=== PATIENT | female | born 1945 | race Caucasian/White ===

== ENCOUNTER 2023-09-22 10:06 | Outpatient (CLI) | payer MEDICARE, SELFPAY ==
[2023-09-22] VITALS (9 sets, daily range): BP systolic 119–130; BP diastolic 56–66; PULSE 56–69; RESP 18; O2SAT 99–100
[2023-09-22] MEDS: ACETAMINOPHEN 500MG TAB 500 MG (10:18)
[2023-09-22] MEDS: 0.9 % SODIUM CHLORIDE 50 ML 100 ML IV (10:18)
[2023-09-22] MEDS: INFLIXIMAB IV (10:46)
[2023-09-22] MEDS: SODIUM CHLORIDE 0.9% IV (10:46)
--- NOTE | 2023-09-22 13:16 | XR_ITS ---
FINAL REPORT CLINICAL HISTORY: cough, no other complaints COMPARISON: 08/24/2023 FINDINGS: TWO-VIEW CHEST The heart size is normal. The mediastinum is normal. The lungs are hyperinflated consistent with COPD. There are postoperative changes in the lower cervical spine. There is no pneumothorax. IMPRESSION: No acute cardiopulmonary process. Reviewed, Interpreted and Dictated by Remington Nunn III, MD Transcribed by Betsy Robertson Authenticated and [facility]
== END 2023-09-22 13:15 | disposition home or self-care (01) ==
LOC: INF 10:07
PROVIDERS: PCP Family Medicine; Visit Provider Internal Medicine
DX: R05.9 Cough, unspecified (principal); I95.9 Hypotension, unspecified; M05.79 Rheumatoid arthritis with rheumatoid factor of multiple sites without organ or systems involvement
CPT/HCPCS: 71046; 96413; 96415; J1745

== ENCOUNTER 2023-10-13 11:49 | Outpatient (POV) | payer MEDICARE, SELFPAY | END 2023-10-13 23:59 | disposition home or self-care (01) | LOC: SC 11:50 | PROVIDERS: PCP Family Medicine; Visit Provider Dermatology | DX: Z00.00 Encounter for general adult medical examination without abnormal findings (principal) ==

== ENCOUNTER 2023-10-27 10:01 | Outpatient (CLI) | payer MEDICARE, OTHER, SELFPAY ==
[2023-10-27] VITALS (10 sets, daily range): BP systolic 104–137; BP diastolic 59–76; PULSE 57–62; RESP 18; O2SAT 96
[2023-10-27] MEDS: ACETAMINOPHEN 500MG TAB 500 MG PO (10:15)
[2023-10-27] MEDS: INFLIXIMAB IV (10:40)
[2023-10-27] MEDS: SODIUM CHLORIDE 0.9% IV (10:40)
[2023-10-27] MEDS: SODIUM CHLORIDE 0.9% 50ML BAG 50 ML IV (10:41)
== END 2023-10-27 13:10 | disposition home or self-care (01) ==
LOC: INF 10:04
PROVIDERS: PCP Family Medicine; Visit Provider Internal Medicine
DX: M05.79 Rheumatoid arthritis with rheumatoid factor of multiple sites without organ or systems involvement (principal)
CPT/HCPCS: 96413; 96415; J1745

== ENCOUNTER 2023-11-04 09:42 | Outpatient (CLI) | payer MEDICARE, OTHER, SELFPAY ==
[2023-11-04 09:56] LABS: Basophils # 0.1 K/mm3 (0-0.2); Basophils % 1.1 % (0.1-2.0); Eosinophils # 0.5 K/mm3 (0.0-0.4); Eosinophils % 6.2 % (0.1-12.0); Hematocrit 41.4 % (37.0-47.0); Hemoglobin 13.3 g/dL (12.2-16.2); Lymphocytes # 2.6 K/mm3 (0.7-4.5); Lymphocytes % 35.5 % (10-50); Mean Corpuscular HGB Conc 32.1 g/dL (31.8-35.4); Mean Corpuscular Hemoglobin 32.3 pg (27.0-31.2); Mean Corpuscular Volume 100.6 fl (81-99); Mean Platelet Volume 8.1 fl (7.4-10.4); Monocytes # 0.4 K/mm3 (0.1-1.0); Monocytes % 5.7 % (1.7-9.3); Neutrophils # 3.7 K/mm3 (1.8-7.8); Neutrophils % 51.5 % (37.0-80.0); Platelet Count 294 K/mm3 (142-424); Red Blood Count 4.11 M/mm3 (4.20-5.40); Red Cell Distribution Width 15.3 % (11.5-17.5); White Blood Count 7.2 K/mm3 (4.8-10.8)
[2023-11-04 10:45] LABS: Alanine Aminotransferase 23 U/L (12-78); Albumin Level 3.9 g/dl (3.5-5.0); Alkaline Phosphatase 58 U/L (38-126); Anion Gap 8.6 mEq/L (5-15); Aspartate Amino Transferase 40 U/L (14-36); Bilirubin,Direct 0.2 mg/dl (0.0-0.4); Bilirubin,Indirect 0.3 mg/dL (0.0-0.9); Bilirubin,Total 0.5 mg/dl (0.2-1.3); Bilirubin,Unconjugated 0.3 mg/dL (0.0-1.1); Blood Urea Nitrogen 15 mg/dl (7-17); Calcium 9.7 mg/dl (8.4-10.2); Carbon Dioxide 28 mmol/L (22.0-30.0); Chloride 108 mmol/L (98-107); Cholesterol 194 mg/dl (140-200); Estimated Glomerular Filt Rate 70 ml/min (>60); GFR (African American) 84 ML/MIN (>60); Glucose 86 mg/dl (74-100); Potassium 4.6 mmoL/L (3.5-5.1); Sodium 140 mmol/L (136-145); Total Protein,Serum 6.9 g/dl (6.3-8.2); Triglycerides 113 mg/dl (30-150); VLDL Cholesterol 23 mg/dL (0-40)
[2023-11-04 10:56] LABS: Direct LDL Cholesterol 67.41 mg/dL (100-129)
[2023-11-04 10:59] LABS: Chol/HDL Ratio 1.7 (1-3.5); HDL Cholesterol 113 mg/dl (40-60)
== END 2023-11-04 23:59 | disposition home or self-care (01) ==
LOC: LAB 09:43
PROVIDERS: PCP Family Medicine; Visit Provider Nurse Practitioner
DX: I95.9 Hypotension, unspecified (principal); I73.9 Peripheral vascular disease, unspecified; I65.29 Occlusion and stenosis of unspecified carotid artery; I25.10 Atherosclerotic heart disease of native coronary artery without angina pectoris; R42 Dizziness and giddiness; E78.5 Hyperlipidemia, unspecified; Z87.891 Personal history of nicotine dependence
CPT/HCPCS: 36415; 80048; 80061; 80076; 85025

== ENCOUNTER 2023-11-09 13:46 | Outpatient (CLI) | payer MEDICARE, OTHER, SELFPAY ==
--- NOTE | 2023-11-09 13:47 | CA_ITS ---
FINAL REPORT TECHNIQUE: Color Doppler, duplex Doppler and kraft scale sonography of the bilateral neck vasculature was performed. Velocities were measured in the carotid arteries. Stenosis evaluation based on velocity criteria. CLINICAL HISTORY: diziness COMPARISON: None FINDINGS: The peak systolic velocity of the right common carotid artery is 101 cm/sec and internal carotid artery 9 8 cm/sec. The diastolic velocity in the internal carotid artery is 57 cm/sec. The ICA/CCA ratio is 0.9. Visually, a small amount of plaque is seen. These findings are consistent with less than 50% stenosis. The external carotid artery is patent. The right vertebral artery is patent with antegrade flow. The peak systolic velocity of the left common carotid artery is 70 cm/sec and internal carotid artery 64 cm/sec. The diastolic velocity in the internal carotid artery is 13 cm/sec. The ICA/CCA ratio is 1.03. Visually, a small amount of plaque is seen. These findings are consistent with less than 50% stenosis. The external carotid artery is patent. The left vertebral artery is patent with antegrade flow. IMPRESSION: No evidence of significant carotid stenosis. Bilateral patent vertebral arteries. If indicated, CTA or MRA could further evaluate. Reviewed, Interpreted and Dictated by Remington Nunn III, MD Transcribed by Nata Mcfarlane Authenticated and [facility]
== END 2023-11-09 23:59 | disposition home or self-care (01) ==
LOC: RT 13:47
PROVIDERS: PCP Family Medicine; Visit Provider Nurse Practitioner
DX: R42 Dizziness and giddiness (principal)
CPT/HCPCS: 93880

== ENCOUNTER 2023-12-01 10:06 | Outpatient (CLI) | payer MEDICARE, OTHER, SELFPAY ==
[2023-12-01] VITALS (7 sets, daily range): BP systolic 109–121; BP diastolic 52–62; PULSE 56–75; RESP 18; TEMP 36.9; O2SAT 95
[2023-12-01] MEDS: ACETAMINOPHEN 500MG TAB 500 MG PO (10:25)
[2023-12-01] MEDS: SODIUM CHLORIDE 0.9% IV (10:36)
[2023-12-01] MEDS: INFLIXIMAB IV (10:36)
[2023-12-01] MEDS: SODIUM CHLORIDE 0.9% 50ML BAG 50 ML IV (10:40)
== END 2023-12-01 13:15 | disposition home or self-care (01) ==
LOC: INF 10:07
PROVIDERS: PCP Family Medicine; Visit Provider Internal Medicine
DX: M05.79 Rheumatoid arthritis with rheumatoid factor of multiple sites without organ or systems involvement (principal)
CPT/HCPCS: 96413; 96415; J1745

== ENCOUNTER 2024-01-04 10:07 | Outpatient (CLI) | payer MEDICARE, OTHER, SELFPAY ==
[2024-01-04] VITALS (8 sets, daily range): BP systolic 97–111; BP diastolic 41–62; PULSE 56–64; RESP 14–18; TEMP 36.4–36.7; O2SAT 96–97; BMI 22.7
[2024-01-04 10:58] LABS: Basophils # 0.1 K/mm3 (0-0.2); Basophils % 1.1 % (0.1-2.0); Eosinophils % 0.3 % (0.1-12.0); Hematocrit 40.7 % (37.0-47.0); Hemoglobin 13.1 g/dL (12.2-16.2); Lymphocytes # 3.4 K/mm3 (0.7-4.5); Lymphocytes % 48.5 % (10-50); Mean Corpuscular HGB Conc 32.2 g/dL (31.8-35.4); Mean Corpuscular Hemoglobin 31.5 pg (27.0-31.2); Mean Corpuscular Volume 97.8 fl (81-99); Mean Platelet Volume 8.6 fl (7.4-10.4); Monocytes # 0.3 K/mm3 (0.1-1.0); Monocytes % 4.3 % (1.7-9.3); Neutrophils # 3.2 K/mm3 (1.8-7.8); Neutrophils % 45.7 % (37.0-80.0); Platelet Count 151 K/mm3 (142-424); Red Blood Count 4.16 M/mm3 (4.20-5.40); Red Cell Distribution Width 15.7 % (11.5-17.5); White Blood Count 7.1 K/mm3 (4.8-10.8)
[2024-01-04 11:12] LABS: Blood Urea Nitrogen 22 mg/dl (7-17); Creatinine Clearance Estimated 49 mL/min (50-200); Estimated Glomerular Filt Rate 54 ml/min (>60); GFR (African American) 65 ML/MIN (>60)
[2024-01-04 11:14] LABS: Alanine Aminotransferase 95 U/L (12-78); Albumin Level 3.5 g/dl (3.5-5.0); Alkaline Phosphatase 242 U/L (38-126); Aspartate Amino Transferase 142 U/L (14-36); Bilirubin,Direct 0.1 mg/dl (0.0-0.4); Bilirubin,Indirect 0.5 mg/dL (0.0-0.9); Bilirubin,Total 0.6 mg/dl (0.2-1.3); Bilirubin,Unconjugated 0.6 mg/dL (0.0-1.1); Total Protein,Serum 7.1 g/dl (6.3-8.2)
[2024-01-04 11:18] LABS: C-Reactive Protein 10.4 mg/L (0-4)
[2024-01-04 11:47] LABS: Erythrocyte Sedimentation Rate 44 mm/hr (0-30)
== END 2024-01-04 14:33 | disposition home or self-care (01) ==
LOC: INF 10:08
PROVIDERS: PCP Family Medicine; Visit Provider Internal Medicine
DX: Z51.12 Encounter for antineoplastic immunotherapy (principal); M05.79 Rheumatoid arthritis with rheumatoid factor of multiple sites without organ or systems involvement; Z79.620 Long term (current) use of immunosuppressive biologic; D84.821 Immunodeficiency due to drugs; Z79.899 Other long term (current) drug therapy
CPT/HCPCS: 80076; 82565; 84520; 85025; 85651; 86140; 96413; 96415; J1745

== ENCOUNTER 2024-01-12 12:16 | Outpatient (CLI) | payer MEDICARE, OTHER, SELFPAY ==
[2024-01-12 12:43] LABS: Basophils # 0.1 K/mm3 (0-0.2); Basophils % 1.1 % (0.1-2.0); Eosinophils % 0.6 % (0.1-12.0); Hematocrit 38.6 % (37.0-47.0); Hemoglobin 13.1 g/dL (12.2-16.2); Lymphocytes % 31.5 % (10-50); Mean Corpuscular Hemoglobin 32.5 pg (27.0-31.2); Mean Corpuscular Volume 95.6 fl (81-99); Mean Platelet Volume 8.2 fl (7.4-10.4); Monocytes # 0.4 K/mm3 (0.1-1.0); Monocytes % 6.7 % (1.7-9.3); Neutrophils # 3.8 K/mm3 (1.8-7.8); Neutrophils % 60.1 % (37.0-80.0); Platelet Count 214 K/mm3 (142-424); Red Blood Count 4.04 M/mm3 (4.20-5.40); Red Cell Distribution Width 15.9 % (11.5-17.5); White Blood Count 6.3 K/mm3 (4.8-10.8)
[2024-01-12 13:14] LABS: Chloride 101 mmol/L (98-107)
[2024-01-12 13:15] LABS: Potassium 4.5 mmoL/L (3.5-5.1); Sodium 127 mmol/L (136-145)
[2024-01-12 13:17] LABS: Alanine Aminotransferase 106 U/L (12-78); Alkaline Phosphatase 489 U/L (38-126); Anion Gap 7.5 mEq/L (5-15); Aspartate Amino Transferase 139 U/L (14-36); Bilirubin,Indirect 0.7 mg/dL (0.0-0.9); Bilirubin,Total 0.7 mg/dl (0.2-1.3); Bilirubin,Unconjugated 0.6 mg/dL (0.0-1.1); Blood Urea Nitrogen 22 mg/dl (7-17); Carbon Dioxide 23 mmol/L (22.0-30.0); Cholesterol 92 mg/dl (140-200); Estimated Glomerular Filt Rate 61 ml/min (>60); GFR (African American) 73 ML/MIN (>60); Total Protein,Serum 6.9 g/dl (6.3-8.2); Triglycerides 74 mg/dl (30-150); VLDL Cholesterol 15 mg/dL (0-40)
[2024-01-12 13:18] LABS: Calcium 8.8 mg/dl (8.4-10.2); Chol/HDL Ratio 2.4 (1-3.5); Glucose 105 mg/dl (74-100); HDL Cholesterol 38 mg/dl (40-60); Magnesium 1.7 mg/dl (1.6-2.3)
[2024-01-12 13:30] LABS: Direct LDL Cholesterol < 30.00 mg/dL (100-129)
[2024-01-12 13:40] LABS: Free T4 (Free Thyroxine) 1.81 ng/dl (0.78-2.19)
[2024-01-12 13:48] LABS: Thyroid Stimulating Hormone 2.29 uIU/mL (0.465-4.68)
== END 2024-01-12 23:59 | disposition home or self-care (01) ==
LOC: LAB 14:12
PROVIDERS: PCP Family Medicine; Visit Provider Nurse Practitioner
DX: R42 Dizziness and giddiness (principal); I25.10 Atherosclerotic heart disease of native coronary artery without angina pectoris; R05.9 Cough, unspecified; I95.9 Hypotension, unspecified; R60.0 Localized edema; Z87.891 Personal history of nicotine dependence
CPT/HCPCS: 36415; 80048; 80061; 80076; 83735; 84439; 84443; 85025; 93270

== ENCOUNTER 2024-01-14 07:36 | Outpatient (CLI) | payer MEDICARE, OTHER, SELFPAY ==
[2024-01-14 09:02] LABS: Anion Gap 9.3 mEq/L (5-15); Blood Urea Nitrogen 26 mg/dl (7-17); Calcium 8.7 mg/dl (8.4-10.2); Carbon Dioxide 21 mmol/L (22.0-30.0); Chloride 101 mmol/L (98-107); Estimated Glomerular Filt Rate 61 ml/min (>60); GFR (African American) 73 ML/MIN (>60); Glucose 99 mg/dl (74-100); Potassium 4.3 mmoL/L (3.5-5.1); Sodium 127 mmol/L (136-145)
[2024-01-14 14:09] LABS: Creatinine,Urine Random 232 mg/dL (Not Estab.)
[2024-01-14 14:12] LABS: Microalbumin/Creatinine Ratio 3.7
== END 2024-01-14 23:59 | disposition home or self-care (01) ==
PROVIDERS: PCP Family Medicine; Visit Provider Nurse Practitioner
DX: I95.9 Hypotension, unspecified; I25.10 Atherosclerotic heart disease of native coronary artery without angina pectoris; I65.29 Occlusion and stenosis of unspecified carotid artery; I73.9 Peripheral vascular disease, unspecified; R42 Dizziness and giddiness; R60.0 Localized edema; R05.9 Cough, unspecified
CPT/HCPCS: 36415; 80048; 82043; 82533; 82570; 84540

== ENCOUNTER 2024-05-04 11:00 | Outpatient (RCR) | payer MEDICARE, OTHER, SELFPAY ==
--- NOTE | 2024-03-15 15:43 | [facility].PTOPWND ---
Rehab Outpt Wound Evaluation Rehab OP Wound Evaluation Start: 03/15/24 13:56 Freq: Status: Active Protocol: Document 03/15/24 13:56 RAGHAV (Rec: 03/15/24 15:42 PHORJARON [id number]) E-signed By Rakan Gee, PT Subjective/History History History This is the initial PT eval for Mimi Hobbs, 78 yo wf who presents with B LE edema x ~ 3 mos S/P prolonged hospital and inpatient rehab stays due to fungal PNA. She reports no c/o pain or numbness/tingling in either leg. She reports the edema in worse with prolonged dependent positioning and reduced with elevation of lower extremities. She has PMH of x 3, C-spine surgery x 2, COPD, RA, hypotension, histoplasmosis, and melanoma. Subjective Subjective Currently pain is 0/10, TTP is 1/4 B lower legs. 3+ pitting edema noted to B lower legs from upper calf distally. Mild hemosiderin staining noted B. Pt has a small posterior R calf wound L= 0.4 cm, W= 0.3 cm, D= 0.1 cm. New diagnosis of cancer in past 12 No months? Lymphedema Eval Classification of Lymphedema Secondary Lymphedema Yes Stemmer's sign Stemmer's Sign yes Stage of Lymphedema Lymphedema stages Stage I (Pitting edema, reduces w/ elevation, no fibrosis) Skin Changes Dry Skin Yes Skin Folds Yes Wounds Yes Discoloration of Skin Yes Other Changes Yes Pain Scale Pain Scale (0-10) 0 Radiation Therapy Has received radiation therapy no Chemo Therapy Has received chemo therapy no Affected Extremities Areas Affected by Lymphedema/Edema Right Lower Extremity,Left Lower Extremity Lower Extremity Measurements Right MTP Measurement (cm) 23.5 Heel Measurement (cm) 34.3 10 cm Proximal to Lateral Malleoli 29.0 Measurement (cm) 20 cm Proximal to Lateral Malleoli 33.1 Measurement (cm) 30 cm Proximal to Lateral Malleoli 34.6 Measurement (cm) 40 cm Proximal to Lateral Malleoli 36.0 Measurement (cm) 50 cm Proximal to Lateral Malleoli 0 Measurement (cm) 60 cm Proximal to Lateral Malleoli 0 Measurement (cm) Lower Extremity Measurement Total (cm) 190.5 Left MTP Measurement (cm) 23.2 Heel Measurement (cm) 33.5 10 cm Proximal to Lateral Malleoli 29.7 Measurement (cm) 20 cm Proximal to Lateral Malleoli 36.6 Measurement (cm) 30 cm Proximal to Lateral Malleoli 36.0 Measurement (cm) 40 cm Proximal to Lateral Malleoli 35.2 Measurement (cm) 50 cm Proximal to Lateral Malleoli 0 Measurement (cm) 60 cm Proximal to Lateral Malleoli 0 Measurement (cm) Lower Extremity Measurement Total (cm) 194.2 Manual Lymphatic Drainage Treatment Area MLD Treatment Area Right Lower Extremity,Left Lower Extremity Wound Problems/Impairments Impairments Problems/Impairmments Palpation Tenderness,Impaired Walking,Impaired Household Care,Increased Edema, Lymphedema Present,Wound Care Needs,Impaired Self Care/Self Management Prognosis Rehab Potential Good Comment Skilled therapy is indicated to reduce overall edema burden to B LE to aid pt return to PLOF. Clinical Impression Consistent with Diagnosis Yes Short Term Goals Number of Weeks 2 Decrease Edema Yes: 2+ pitting edema B lower legs Patient to Understand Lymphedema Yes Treatment and Exercises Decrease Girth Measurments by (cm) Yes: B B LE total by 5 cm ea Dining Room Captain Goals Number of Weeks 6-8 Decreased Palpation Tenderness Yes: 0/4 B lower legs Improve Ability For Household Care Yes Decrease Edema Yes: 1+ pitting edema to B lower legs Patient to be Ind w/ HEP Yes Patient to be Ind w/ Donning/[place] Yes Compression Garments Patient to Adhere Lymphedema Precautions Yes Decrease Girth Measurments by (cm) Yes: B LE total by 20 cm ea Outpatient Therapy Plan of Care Treatment Plan May Include Therapeutic Exercise Including Home Yes Exercise Program Manual Therapy Techniques Yes Neuromuscular Re-education Yes Therapeutic Activities to Return to Yes Previous Functional/Work Level Orthotics/Bracing/Splinting Yes Vasopneumatic Compression Pump Yes Manual Lymphatic Drainage Yes Eval/Re-Eval Yes Frequency Times per week 2 Duration Number of Weeks 6-8 Addendums This patient is a candidate for social No or vocational rehab? Patient/Guardian verbally acknowledges Yes understanding of treatment program and consents to further treatment? Patient/Guardian verbally acknowledges Yes understanding of diagnosis, prognosis and goals for treatment? Eval Complexity PT Charges 20629 - High Complexity PHYSICIAN CERTIFICATION: I certify the specified therapy services for Mimi Hobbs are required, authorized, and reviewed every 30 days.
--- NOTE | 2024-04-18 11:55 | HMH.RHREAS ---
Rehab Reassessment Rehab OP Re-assessment Start: 03/15/24 13:56 Freq: Status: Active Protocol: Document 04/18/24 11:44 [email or web address] (Rec: 04/18/24 11:54 PHORJARON [id number]) E-signed By Rakan Gee, PT Rehab Re-assessment Subjective Subjective Pt reports she feels much better overall with less swelling in B LE. She does reports she was on vacation and did develop a superficial blister to the lateral aspect of her R foot. She reports no soreness at this time, but does have a blister remaining on her R foot. Objective Objective Notes Circumferential Measurements: R LE total is 181.1 cm which is -9.4 cm since IE. L LE total is 181.5 cm which is -12.7 cm since IE. Edema: 2+ pitting edema remains to B lower legs and feet this date. Pain: 0/10 B LE TTP: 0/4 B lower legs. Assessment Progress Assessment Progressing as Expected Assessment Notes Pt has shown significant reduction of B LE edema overall, but continues to have pitting edema to B lower legs . Skilled therapy remains indicated to reduce overall edema burden and to return pt to PLOF. Patient goals met ST LT/7 Plan Plan Continue per initial POC. Frequency of Therapy 1-2 x/wk Duration of therapy 3-4 wks Time and Billing Re-Eval Time 11 Re-Eval Billing Units 0 PHYSICIAN CERTIFICATION: I certify the specified therapy services for Mimi Hobbs are required, authorized, and reviewed every 30 days.
== END 2024-05-04 23:59 | disposition home or self-care (01) ==
LOC: PT 11:00
PROVIDERS: Visit Provider Family Medicine
DX: I89.0 Lymphedema, not elsewhere classified (principal)
CPT/HCPCS: 97140; 97163

== ENCOUNTER 2024-05-05 14:01 | Outpatient (CLI) | payer MEDICARE, OTHER, SELFPAY ==
[2024-05-05 14:51] LABS: Basophils # 0.1 K/mm3 (0-0.2); Basophils % 0.9 % (0.1-2.0); Eosinophils # 0.4 K/mm3 (0.0-0.4); Eosinophils % 4.8 % (0.1-12.0); Hematocrit 38.9 % (37.0-47.0); Hemoglobin 12.5 g/dL (12.2-16.2); Lymphocytes # 2.1 K/mm3 (0.7-4.5); Lymphocytes % 23.5 % (10-50); Mean Corpuscular HGB Conc 32.2 g/dL (31.8-35.4); Mean Corpuscular Hemoglobin 31.2 pg (27.0-31.2); Mean Corpuscular Volume 96.8 fl (81-99); Mean Platelet Volume 8.1 fl (7.4-10.4); Monocytes # 0.5 K/mm3 (0.1-1.0); Monocytes % 5.8 % (1.7-9.3); Neutrophils # 5.7 K/mm3 (1.8-7.8); Neutrophils % 64.9 % (37.0-80.0); Platelet Count 254 K/mm3 (142-424); Red Blood Count 4.02 M/mm3 (4.20-5.40); Red Cell Distribution Width 14.1 % (11.5-17.5); White Blood Count 8.8 K/mm3 (4.8-10.8)
[2024-05-05 15:34] LABS: Anion Gap 12.5 mEq/L (5-15); Blood Urea Nitrogen 17 mg/dl (7-17); Calcium 9.4 mg/dl (8.4-10.2); Carbon Dioxide 27 mmol/L (22.0-30.0); Chloride 105 mmol/L (98-107); Estimated Glomerular Filt Rate 61 ml/min (>60); GFR (African American) 73 ML/MIN (>60); Glucose 105 mg/dl (74-100); Potassium 4.5 mmoL/L (3.5-5.1); Sodium 140 mmol/L (136-145)
== END 2024-05-05 23:59 | disposition home or self-care (01) ==
LOC: LAB 14:03
PROVIDERS: PCP Family Medicine; Visit Provider Internal Medicine
DX: R60.0 Localized edema (principal); I73.9 Peripheral vascular disease, unspecified; I65.29 Occlusion and stenosis of unspecified carotid artery; I25.10 Atherosclerotic heart disease of native coronary artery without angina pectoris; R42 Dizziness and giddiness; R05.9 Cough, unspecified; I95.9 Hypotension, unspecified
CPT/HCPCS: 36415; 80048; 85025

== ENCOUNTER 2024-05-31 10:00 | Outpatient (RCR) | payer MEDICARE, OTHER, SELFPAY | END 2024-07-05 23:59 | disposition home or self-care (01) | LOC: OT 10:00 | PROVIDERS: PCP Family Medicine; Visit Provider Family Medicine | DX: R53.1 Weakness (principal) | CPT/HCPCS: 97014; 97110; 97140; 97165; 97168; 97530; G0283 ==

== ENCOUNTER 2024-06-14 06:42 | Day surgery (SDC) | payer MEDICARE, OTHER, SELFPAY ==
[2024-06-10 12:50] VITALS: BMI 20.8
[2024-06-14] MEDS: TETRACAINE 0.5% OPTH SOL 15ML OP ×3 (07:05→07:06)
[2024-06-14] MEDS: PHENYLEPHRINE 2.5% OPHTH SOLN 2ML OP ×3 (07:05→07:06)
[2024-06-14] MEDS: CYCLOPENTOLATE 2% OPHTH SOLN 2ML BOTTLE OP ×3 (07:05→07:07)
[2024-06-14 07:11] VITALS: BP 165/63; PULSE 66; RESP 18; TEMP 36.4; O2SAT 96
[2024-06-14 08:13] VITALS: BP 125/74; PULSE 64; RESP 16; O2SAT 96
[2024-06-14] MEDS: MIDAZOLAM 2MG/2ML VIAL 2 MG (08:13)
[2024-06-14] MEDS: TIMOLOL 0.5% OPTH SOLN 5ML OP (08:16)
[2024-06-14] MEDS: TOBRAMYCIN/DEX OPTH SUSP 2.5ML OP (08:16)
[2024-06-14] MEDS: SODIUM CHLORIDE 0.9% 10ML FLUSH SYRINGE 10 ML IV (08:17)
[2024-06-14] MEDS: LIDOCAINE 1% PF 2ML AMPULE 2 ML IJ (08:17)
[2024-06-14 08:18] VITALS: BP 154/70; PULSE 59; RESP 16; O2SAT 96
[2024-06-14 08:23] VITALS: BP 149/63; PULSE 62; RESP 16; O2SAT 96
[2024-06-14 08:28] VITALS: BP 151/69; PULSE 64; RESP 16; O2SAT 96
[2024-06-14 08:34] VITALS: BP 139/67; PULSE 65; RESP 17; TEMP 36.1; O2SAT 99
== END 2024-06-14 08:45 | disposition home or self-care (01) ==
PROVIDERS: PCP Family Medicine; Visit Provider Ophthalmology
PROC: (CPT 66984; principal; 2024-06-14 08:00)
DX: H26.9 Unspecified cataract (principal)
CPT/HCPCS: 66984; J2250; V2632

== ENCOUNTER 2024-07-01 15:17 | Outpatient (CLI) | payer MEDICARE, OTHER, SELFPAY ==
--- NOTE | 2024-07-01 15:25 | MM_ITS ---
PROCEDURE INFORMATION: Exam: MG Bilateral Screening 3D Mammography Exam date and time: 07/01/2024 3:08 PM Age: 78 years old Clinical indication: Screening examination. Maternal aunts and a daughter had breast cancer. TECHNIQUE: Imaging protocol: Bilateral Screening tomosynthesis and 2D mammography including computer-aided detection (CAD) when performed. COMPARISON: No relevant prior studies available.If prior mammograms are provided, I am happy to add an addendum. FINDINGS: MAMMOGRAPHY: Breast composition: There are scattered areas of fibroglandular density. Mass: None. Architectural distortion: None. Calcifications: No suspicious calcifications. Asymmetric density: None. Skin thickening: None. Axillary adenopathy: None. IMPRESSION: No mammographic evidence of malignancy. Annual screening is recommended unless otherwise clinically indicated. ASSESSMENT: BI-RADS Category 1: Negative.
== END 2024-07-01 23:59 | disposition home or self-care (01) ==
LOC: RAD 15:18
PROVIDERS: PCP Family Medicine; Visit Provider Family Medicine
DX: Z12.31 Encounter for screening mammogram for malignant neoplasm of breast (principal)
CPT/HCPCS: 77063; 77067

== ENCOUNTER 2024-07-04 11:00 | Outpatient (RCR) | payer MEDICARE, OTHER, SELFPAY ==
--- NOTE | 2024-05-04 11:44 | HMH.PTOPEV ---
PT Outpatient Evaluation Rehab PT Outpatient Evaluation Start: 05/04/24 09:54 Freq: Status: Active Protocol: Document 05/04/24 09:54 ZEV (Rec: 05/04/24 11:44 ZEV [id number]) E-signed By Ruma Laboy, PT Outpatient Therapy Subjective History Subjective History This is an initial PT evaluation for 78 y/o female, Mimi Hobbs, who presents for referral for balance impairments. Pt reports she is here for balance and general strengthening. Pt reports she was hospitalized in January and February for pneumonia. Pt was d /c'd to [facility]. Pt reports trouble with feeling steady on her feet, walking long distances, and stepping on/off of curbs. Pt reports she fatigues after ~10 minutes of walking. Pt reports she wants to get back to being herself again. Falls: 2 falls in 6 months PMH: COPD, emphysema, lymphedema, RA, low BP, cervical spine surgery New diagnosis of cancer in past 12 No months? Chief Complaint Weakness Hip/Knee Eval Gait Observation General Gait Pattern Observation No Deviations/Normal Assistive Device Assistive Devices None / NA MMT bilateral Hip Flexion Strength Grade 4- Good- Hip Abduction Strength Grade 4- Good- Hip Adduction Strength Grade 4- Good- Hip Extension Strength Grade 4- Good- JAMES Balance Evaluation Sitting to Standing Ability Independent w/out Hands Unsupported Stance Safely- 2 minutes Sitting Unsupported, Feet on Floor Safely- 2 minutes Standing to Sitting Ability Safely, Minimal Hand Use Transfer Ability Safely, Minimal Hand Use Unsupported Stance- Eyes Closed Safely, 10 seconds Unsupported Stance- Eyes Open Independent, 1 minute Reaching Forward Standing Safely, 5 inches Pick- Up Object From Floor Supervision Look Behind Shoulder - Standing Shifts Weight Unilateral Turning 360 Degrees Turns Bilateral, < 4 secs Unsupported Stance, Alternating Feet on 2 Steps w/Minimum Assist Stair Unsupported Tandem Stance Balance Lost- Step/Stand Unilateral Leg Stance Lifts Leg/Holds > 3 secs Total Score Balance Evaluation Total (out of 56 44 points) Miscellaneous Dx PT Eval Objective Objective 5xSTS: 15 seconds with UE use TU.5 seconds no AD Romberg: Passed all sections. Sway noted when eyes closed requiring supervision. JAMES balance test: 44/56: fall risk Miscellaneous Goals Short Term Goals In 4 weeks, pt will: 1) Verbalize IND with HEP 2) Perform Tug test in <12 seconds 3) Improve JAMES score by 1 point 4) Hold SLS for 10 seconds without UE support to improve function SL balance 5) Improve hip flexion strength to 4/5 to improve function Jail Goals In 8 weeks, pt will: 1) Verbalize IND with HEP 2) Perform Tug test in 10 seconds 3) Improve JAMES score to 50/56 point to improve safety 4) Hold SLS for 15 seconds without UE support to improve function SL balance 5) Improve BLE strength to 5/5 to maximize daily function Outpatient Therapy Assessment Impairments Problems/Impairmments Impaired Strength,Impaired Endurance,Impaired Transfers, Impaired Gait Pattern,Impaired Walking,Impaired Standing, Impaired Stair Climbing, Impaired Incline Stepping, Impaired Stepping on Uneven Surface,Impaired Squatting, Impaired Bending,Impaired Recreational Activities, Impaired JAMES Score,Impaired TUG Time Prognosis Rehab Potential Good Comment Pt presents with impaired dynamic and static standing balance and decreased general strength. Pt's objective measures place her as a fall risk. Pt would benefit from skilled PT to address deficits . Clinical Impression Consistent with Diagnosis Yes Outpatient Therapy Plan of Care Treatment Plan May Include Therapeutic Exercise Including Home Yes Exercise Program Manual Therapy Techniques Yes Neuromuscular Re-education Yes Therapeutic Activities to Return to Yes Previous Functional/Work Level Gait Training Yes ADL/Self Care Education Yes Eval/Re-Eval Yes Aquatic Therapy Yes Frequency Times per week 2-3 times Duration Number of Weeks 6-8 weeks Addendums This patient is a candidate for social No or vocational rehab? Patient/Guardian verbally acknowledges Yes understanding of treatment program and consents to further treatment? Patient/Guardian verbally acknowledges Yes understanding of diagnosis, prognosis and goals for treatment? Eval Complexity PT Charges 09234 - Moderate Complexity Shoulder/Elbow Eval Shoulder Objective Measurements Elbow Objective Measurements PHYSICIAN CERTIFICATION: I certify the specified therapy services for Mimi Hobbs are required, authorized, and reviewed every 30 days.
--- NOTE | 2024-06-07 15:54 | HMH.RHREAS ---
Rehab Reassessment Rehab OP Re-assessment Start: 05/04/24 09:54 Freq: Status: Active Protocol: Document 06/07/24 13:26 ZEV (Rec: 06/07/24 14:58 ZEV [id number]) E-signed By Ruma Laboy, PT JAMES Balance Evaluation Sitting to Standing Ability Independent w/out Hands Unsupported Stance Safely- 2 minutes Sitting Unsupported, Feet on Floor Safely- 2 minutes Standing to Sitting Ability Safely, Minimal Hand Use Transfer Ability Safely, Minimal Hand Use Unsupported Stance- Eyes Closed Safely, 10 seconds Unsupported Stance- Eyes Open Independent, 1 minute Reaching Forward Standing Confidently, 10 inches Pick- Up Object From Floor Independent/Safe Look Behind Shoulder - Standing Shifts Weight Well Turning 360 Degrees Turns Bilateral, < 4 secs Unsupported Stance, Alternating Feet on 2 Steps w/Minimum Assist Stair Unsupported Tandem Stance Assist to Step-15 seconds Unilateral Leg Stance Lifts Leg/Holds > 3 secs Total Score Balance Evaluation Total (out of 56 48 points) Rehab Re-assessment Subjective Subjective Pt reports she feels 50% improved since IE. Reports compliance with HEP. Pt reports she has noticed a positive difference in her balance. Objective Objective Notes 5xSTS: 10 seconds with UE use TU seconds no AD JAMES balance test: 48/56 SLS: 8 and 9 seconds Strength: - Hip Flexion: 4/5 LLE, 4+/5 RLE - Hip ABD: 4/5 BLE - Hip ADD 4/5 BLE Assessment Progress Assessment Progressing as Expected Assessment Notes This is a reassessment for Mimi Hobbs who presents to PT for c/o weakness and balance deficits. Since IE, pt has been seen for 9 treatment visits that have consisted of modalities prn, education, and therapeutic exercises focusing on strength and balance. Pt with good attendance to scheduled PT visits and reports adherence to HEP. Since IE, pt with improvements in BLE strength, endurance, and functional balance. Pt with improved TUG, 5xSTS and JAMES score. Pt still presents with impaired balance per LOB during narrow stance and uneven surface balance interventions. Pt would continue to benefit from skilled outpatient physical therapy to address remaining deficits and achieve LTGs. Patient goals met In 4 weeks, pt will: 1) Verbalize IND with HEP: MET 2) Perform Tug test in <12 seconds: MET 3) Improve JAMES score by 1 point: MET 4) Hold SLS for 10 seconds without UE support to improve function SL balance: Not MET 5) Improve hip flexion strength to 4/5 to improve function: MET LTG: in progress Plan Plan Continue POC Frequency of Therapy 2-3 times weekly Duration of therapy 3 weeks Time and Billing Re-Eval Time 19 Re-Eval Billing Units 0 Charge for PT reassessment? No PHYSICIAN CERTIFICATION: I certify the specified therapy services for Mimi Hobbs are required, authorized, and reviewed every 30 days.
== END 2024-07-04 23:59 | disposition home or self-care (01) ==
LOC: PT 11:00
PROVIDERS: Visit Provider Family Medicine
DX: R26.89 Other abnormalities of gait and mobility (principal)
CPT/HCPCS: 97110; 97163; 97530

== ENCOUNTER 2024-08-02 10:00 | Outpatient (RCR) | payer MEDICARE, OTHER, SELFPAY ==
--- NOTE | 2024-07-07 14:58 | HMH.RHREAS ---
Rehab Reassessment Rehab OP Re-assessment Start: 07/07/24 10:10 Freq: Status: Active Protocol: Document 07/07/24 10:10 ZEV (Rec: 07/07/24 12:07 ZEV [id number]) E-signed By Ruma Laboy, PT JAMES Balance Evaluation Sitting to Standing Ability Independent w/out Hands Unsupported Stance Safely- 2 minutes Sitting Unsupported, Feet on Floor Safely- 2 minutes Standing to Sitting Ability Safely, Minimal Hand Use Transfer Ability Safely, Minimal Hand Use Unsupported Stance- Eyes Closed Safely, 10 seconds Unsupported Stance- Eyes Open Independent, 1 minute Reaching Forward Standing Confidently, 10 inches Pick- Up Object From Floor Independent/Safe Look Behind Shoulder - Standing Shifts Weight Well Turning 360 Degrees Turns Bilateral, < 4 secs Unsupported Stance, Alternating Feet on 4 Steps w/Supervision Stair Unsupported Tandem Stance Assist to Step-15 seconds Unilateral Leg Stance Lifts Leg/Holds > 3 secs Total Score Balance Evaluation Total (out of 56 49 points) Rehab Re-assessment Subjective Subjective Pt reports she feels 70% improved since IE. Reports minimal compliance with HEP over the holidays. Objective Objective Notes 5xSTS: 10 seconds with UE use TU seconds no AD JAMES balance test: 49/56 SLS: 15 seconds Strength: - Hip Flexion: 5/5 LLE, 5/5 RLE - Hip ABD: 5/5 BLE - Hip ADD 5/5 BLE Assessment Progress Assessment Progressing as Expected Assessment Notes This is a reassessment for Mimi Hobbs who presents to PT for c/o weakness and balance deficits. Since IE, pt has been seen for 12 treatment visits that have consisted of education, theract, and therapeutic exercises focusing on strength and balance. Pt with good attendance to scheduled PT visits and reports minimal adherence to HEP. Since IE, pt with improvements in BLE strength, endurance, and functional balance. Pt still presents with some impaired balance per LOB during narrow stance and uneven surface balance interventions. Pt would continue to benefit from skilled outpatient physical therapy for 1-2 weeks to address remaining achieve LTG. Patient goals met In 4 weeks, pt will: 1) Verbalize IND with HEP: MET 2) Perform TUG test in <12 seconds: MET 3) Improve JAMES score by 1 point: MET 4) Hold SLS for 10 seconds without UE support to improve function SL balance: MET 5) Improve hip flexion strength to 4/5 to improve function: MET LTGs: In 8 weeks, pt will: 1) Verbalize IND with HEP: Not Met 2) Perform Tug test in 10 seconds: MET 3) Improve JAMES score to 50/56 point to improve safety: Not Met 4) Hold SLS for 15 seconds without UE support to improve function SL balance: Met 5) Improve BLE strength to 5/5 to maximize daily function: Met Plan Plan Continue POC Frequency of Therapy 2-3 times Duration of therapy 1 week Time and Billing Re-Eval Time 10 Re-Eval Billing Units 0 Charge for PT reassessment? No PHYSICIAN CERTIFICATION: I certify the specified therapy services for Mimi Hobbs are required, authorized, and reviewed every 30 days.
== END 2024-08-02 23:59 | disposition home or self-care (01) ==
LOC: PT 10:00
PROVIDERS: Visit Provider Family Medicine
DX: R26.89 Other abnormalities of gait and mobility (principal)
CPT/HCPCS: 97110; 97530

== ENCOUNTER 2024-08-02 11:00 | Outpatient (RCR) | payer MEDICARE, OTHER, SELFPAY | END 2024-08-02 23:59 | disposition home or self-care (01) | LOC: OT 11:00 | PROVIDERS: Visit Provider Family Medicine | DX: R26.89 Other abnormalities of gait and mobility (principal) | CPT/HCPCS: 97014; 97110; 97140; 97168; 97530; G0283 ==

== ENCOUNTER 2024-08-18 11:00 | Outpatient (RCR) | payer MEDICARE, OTHER, SELFPAY | END 2024-08-18 23:59 | disposition home or self-care (01) | LOC: OT 11:00 | PROVIDERS: Visit Provider Family Medicine | DX: R53.1 Weakness (principal) | CPT/HCPCS: 97014; 97110; 97140; 97530; G0283 ==

== ENCOUNTER 2024-09-01 09:06 | Outpatient (CLI) | payer MEDICARE, OTHER, SELFPAY ==
--- NOTE | 2024-09-01 09:10 | XR_ITS ---
FINAL REPORT TECHNIQUE: Bone mineral density was calculated of the lumbar spine and hip. CLINICAL HISTORY: SCREENING COMPARISON: None FINDINGS: Using L1-4, the bone mineral density of the spine is 1.138 g/cm2, corresponding to T-score of 0.8. Using the left hip, the bone mineral density of the femoral neck is 0.821 g/cm2, corresponding to a T-score of -1.0. Using the right hip, the bone mineral density of the femoral neck is 0.703 g/cm?, corresponding to a T-score of -1.3. NOTE: T-score: Standard deviation compared with peak bone mass of young adult mean. *Following the recommendations of the International Society of Bone densitometry, classification of hip BMD is based on the lower of two T-scores; total hip or femoral neck. IMPRESSION: Diminished bone mineral density of the bilateral hips consistent with osteopenia. Normal bone mineral density of the lumbar spine. Reviewed, Interpreted and Dictated by Remington Nunn III, MD Transcribed by Nata Mcfarlane Authenticated and [facility]
== END 2024-09-01 23:59 | disposition home or self-care (01) ==
LOC: RAD 09:07
PROVIDERS: PCP Family Medicine; Visit Provider Internal Medicine
DX: M05.79 Rheumatoid arthritis with rheumatoid factor of multiple sites without organ or systems involvement (principal); Z78.0 Asymptomatic menopausal state; Z01.89 Encounter for other specified special examinations
CPT/HCPCS: 77080

== ENCOUNTER 2024-10-06 12:57 | Outpatient (CLI) | payer MEDICARE, OTHER, SELFPAY ==
--- NOTE | 2024-10-06 | US_ITS ---
FINAL REPORT CLINICAL HISTORY: redness of toes with edema FINDINGS: LOWER EXTREMITY SEGMENTAL PRESSURE MEASUREMENTS FINDINGS: Pressure indices are as follows: RIGHT LOWER EXTREMITY: Upper thigh: 179 Calf: 166 Ankle, posterior tibial artery: 174 Ankle, dorsalis pedis: 184 Toe: 152 Comments: Ankle-brachial index of 1.34, normal LEFT LOWER EXTREMITY: Upper thigh: Not measured Calf: 183 Ankle, posterior tibial artery: 180 Ankle, dorsalis pedis: 179 Toe: 193 Comments: Ankle-brachial index of 1.31, normal IMPRESSION: Normal bilateral ankle-brachial indices. Reviewed, Interpreted and Dictated by Srikanth Buchanan MD Transcribed by Nata Mcfarlane Authenticated and [facility]
--- NOTE | 2024-10-06 13:00 | CA_ITS ---
FINAL REPORT CLINICAL HISTORY: redness of feet with intermit pedal edema COMPARISON: None FINDINGS: Right lower extremity, flow velocities (cm per second): Common femoral artery: 136 Proximal SFA: 98 Mid SFA: 75 Popliteal: 88 Anterior tibial artery: 50 to Posterior tibial artery: 81 Left lower extremity, flow velocities (cm per second): Common femoral artery: 172 Proximal SFA: 111 Distal SFA: 83 Popliteal: 80 Anterior tibial artery: 48 Posterior tibial artery: 74 Waveforms are noted to be biphasic and triphasic. No levels of stenosis or occlusion are identified. Mild diffuse plaque disease is present. IMPRESSION: Normal biphasic and triphasic waveforms, without evidence of significant peripheral vascular disease. Reviewed, Interpreted and Dictated by Srikanth Buchanan MD Transcribed by Nata Mcfarlane Authenticated and . [facility]
--- NOTE | 2024-10-06 15:00 | CA_ITS ---
FINAL REPORT CLINICAL HISTORY: Pedal edema FINDINGS: Multiple transverse and longitudinal scans were performed of the femoral popliteal deep venous system, with augmentation and compression maneuvers. Normal phasic flow was noted in the visualized deep venous system. No intraluminal increased echogenicity is noted to suggest thrombus. There is normal compression and augmentation of the venous structures. No abnormal venous collaterals are seen. IMPRESSION: No evidence of deep venous thrombosis of the bilateral lower extremities. Reviewed, Interpreted and Dictated by Srikanth Buchanan MD Transcribed by Betsy Robertson Authenticated and [facility]
== END 2024-10-06 23:59 | disposition home or self-care (01) ==
LOC: RT 12:58
PROVIDERS: PCP Family Medicine; Visit Provider Internal Medicine
DX: R60.0 Localized edema (principal); I73.9 Peripheral vascular disease, unspecified; I25.10 Atherosclerotic heart disease of native coronary artery without angina pectoris; L81.9 Disorder of pigmentation, unspecified
CPT/HCPCS: 93923; 93925; 93970

== ENCOUNTER 2025-02-22 09:56 | Outpatient (CLI) | payer MEDICARE, OTHER, SELFPAY ==
--- OUTSIDE RECORDS SUMMARY | 2024-06-22 09:30 | XMS_ITS ---
Author Organization Kamran Address [address] [facility] [address] [place] [id number] Care Team Providers Care Aoc Airspace Control Officer Name Role Phone Miles Beavers Unavailable [phone] Allergies No Known Allergies REASON FOR VISIT [...] Orally every 12 hrs Active Vital Signs Weight 134.2 lbs 06/22/2024 Blood pressure systolic 134 mm Hg 06/22/20 24 Blood pressure diastolic 76 mm Hg 024 Heart Rate 94 /min 06/22/2024 Height 67 in 06/22/2024 BMI 21.02 kg/m2 06/22/2024 Encounters Encounter Location Date Provider Diagnosis [place] [address] [facility] [address] [place] [phone] 06/22/2024 Miles Beavers Lymphedema I89.0 and Gastroesophageal [...] Follow Up: 6 Months, Reason: Provider Name:Miles Kwong ry, 06/23/2025 11:00:00 AM, [address], [address], [place], [id number], Progress Notes * SAUL GIVENSOB:1945 (79 yo F)Acc No.[id number]:06/22/2024 Progress Notes Patient: NATALIE SAHU Provider: Singh Beavers M.D. :1945 A ge:78 Y S ex:Female Date:06/22/2024 Address:[address] [place], [place] [address], [place] Subjective: * Chief Complaints: * 1 . 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 * Family History: F ather: [...] * Images: Billing Information: * Visit Code: 00983 Office Visit, Est Pt., Level 3. * Procedure Codes: G2211 Complex e/m visit add on. * Electronic signature of Alisha Beavers MD on 02/22/2025 at 10:18 AM EDT Sign off status: Pending * Provider: Singh Beavers M.D. Date: 1 08/23/2023 Generated for [place] calderon/Nik/Taryn on: 0 02/22/2025 10:18 AM EDT History and Physical Notes * HPI (History [...]
--- OUTSIDE RECORDS SUMMARY | 2024-08-08 10:45 | XMS_ITS ---
Author Organization [facility] Address [address] [place] [phone] Care Team Providers Care Direct Casting Operator Name Role Phone Miles Beavers Unavailable [phone] Allergies No Known Allergies Results Component Value [...] Duration: 90 days 06/28/2024 Active Vital Signs Weight 132 lbs 08/08/2024 Blood pressure systolic 132 mm Hg 08/08/19 25 Blood pressure diastolic 70 mm Hg 025 Heart Rate 88 /min 08/08/2024 Height 67 in 08/08/2024 BMI 20.67 kg/m2 08/08/2024 Encounters Encounter Location Date Provider Diagnosis [facility] [address] [place] [phone] 08/08/2024 Miles Beavers Acute URI J06.9 Assessments [...] Details Follow Up: prn, Reason: Provider Name:Miles Kwong ry, 06/23/2025 11:00:00 AM, [facility] [facility], [address], [place], [phone], Progress Notes * SAUL GIVENSOB:1945 (79 yo F)Acc No.[id number]:08/08/2024 Progress Notes Patient: NATALIE SAHU Provider: Singh Beavers M.D. :1945 A ge:78 Y S ex:Female Date:08/08/2024 Address:[facility] [place], [id number] Subjective: * Chief Complaints: * 1 . [...] Diagno stic Procedure: H istoplasmosis, treated at [facility] 02/2024. * Family History: F ather: [...] G 2211 Complex e/[place], [address] Flu Test- Nasal Swab, Modifiers: QW , [address] [place], [address] COVID TEST IN HOUSE, Modifiers: QW , 94005 CAPILLARY BLOOD DRAW, 03709 CBC WITH AUTO DIFF, 3075F SYST BP GE 130 - 139MM HG, 3078F DIAST BP < 80 MM HG * Follow Up: p rn * Images: Billing Information: * Visit Code: 64807 Office Visit, Est Pt., Level 3. * Procedure Codes: G2211 Complex e/[place]. [address] Flu Test- Nasal Swab. Modifiers: QW [address] [place]. [address] COVID TEST IN HOUSE. Modifiers: QW 65522 CAPILLARY BLOOD DRAW. 72841 CBC WITH AUTO DIFF. 3075F SYST BP GE 130 - 139MM HG. 3078F DIAST BP < 80 MM HG. * Electronic signature of Alisha Beavers MD on 02/22/2025 at 10:18 AM EDT Sign off status: Pending * Provider: Singh Beavers M.D. Date: 0 08/08/2024 Generated for [place] calderon/Nik/Jesikaitting on: 0 02/22/2025 10:18 AM EDT History [...]
--- OUTSIDE RECORDS SUMMARY | 2024-12-21 07:00 | XMS_ITS ---
Author Organization [facility] Address [address] [place] [id number] Care Team Providers Care Drop Worker Name Role Phone Miles Beavers Unavailable [phone] Allergies No Known Allergies REASON FOR VISIT 6 months Medications Medication [...] - as directed Orally Active Vital Signs Weight 128 lbs 12/21/2024 Blood pressure systolic 122 mm Hg 12/22/19 25 Blood pressure diastolic 72 mm Hg 025 Heart Rate 94 /min 12/21/2024 Height 67 in 12/21/2024 BMI 20.05 kg/m2 12/21/2024 Encounters Encounter Location Date Provider Diagnosis [facility] [address] [facility] [address] [place] [id number] 12/21/2024 Miles Beavers Pure hypercholestero lemia E78.00 [...] Notes Peripheral edema Compression stocking s recommended Pending Test Test Name Order Date TSH 12/21/2024 CMP 12/21/2024 lipid profile 12/21/2024 CBC 12/21/2024 Next Appt Details Follow Up: via phone to repo rt test results,6 Months, Reason: Provider Name:Miles Kwong , 06/23/2025 11:00:00 AM, [address], [address] , [place], [place], [id number], Progress Notes * CHIDI GIVENSLAURENCEOB:1945 (79 yo F)Acc No.[id number]:12/21/2024 Progress Notes Patient: NATALIE SAHU Provider: Singh Beavers M.D. :1945 A ge:79 Y S ex:Female Date:12/21/2024 Address:[address] [place] [address] [place] [id number] Subjective: * Chief Complaints: * 1 . [...] Diagno stic Procedure: H istoplasmosis, treated at [facility] 02/2024. * Family History: F ather: [...] Temp: 97.4, BP: 122/72, HR: 94, Nurse: jerome, Ht: 67, BMI:20.05. * Examination: G eneral [...] esophagitis present - K21.9 4 . L sheldon-term use of high-risk medication - Z79.899 5 . R heumatoid arthritis, involving unspecified site, unspecified whether rheumatoid factor present - M06.9 6 . B [place] 20.0-20.9, adult - Z68.20 Plan: * Treatment: 2. P eripheral edema L AB: TSH L AB: CMP Notes: Compression stockings recommended 3. G astroesophageal reflux disease, unspecified whether esophagitis present Continue Pantoprazole Sodium Tablet Delayed Release, 40 MG, 1 tablet, Orally, Once a day. ? 4. L sheldon-term use of high-risk medication L AB: CBC * Procedure Codes: G 2211 Complex e/m visit add on, 1036F TOBACCO NON-USER, G8420 BMI<30 AND >=22 CALC & DOCU, G8783 BP SCR PRFRM RCMDD DEFIND SCR INTVL, G8752 MOST RECENT SYSTOLIC BP < 140MM HG, G8754 MOST RECENT DIASTOLIC BP < 90MM HG * Follow Up: v ia phone to report test results,6 Months * Images: Billing Information: * Visit Code: 01446 Office Visit, Est Pt., Level 4. * [...] 0 12/21/2024 Generated for [place] calderon/Nik/Jesikaitting on: 0 02/22/2025 [...]
--- OUTSIDE RECORDS SUMMARY | 2025-01-02 11:43 | XMS_ITS ---
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 (SNOMED CT) 03/03 Resolved 03/03 Glenny Stratton MD Acute pulmonary blastomycosis Medications Medication Instructions Start Date Stop Date Generic Name [facility] Provider VORICONAZOLE 200 MG TABS 1 tablet by mouth twice a day TAKE 1 TABLET BY MOUTH 2 TIMES A DAY 01/02 voriconazole [id number] Glenny Stratton MD VORICONAZOLE 200 MG TABS Take 1 tablet by mouth twice a day 01/16 voriconazole [id number] Glenny Stratton MD VORICONAZOLE 200 MG TABS 1 tablet by mouth twice a day TAKE 1 TABLET BY MOUTH 2 TIMES A DAY 01/02 voriconazole [id number] Glenny Stratton MD FLUDROCORTISONE ACETATE 0.1 MG TABS 0.1 mg = 1 tab, Tab, Oral, Daily, 30 tab, 0 Refill(s), Route to Pharmacy Electronically, [facility], 170, 02/12/24 3:54:00 EDT, Height/Length Dosing, cm, 67.7, 02/12/24 3:54:00 EDT, Weight Dosing, kg 01/02 fludrocortisone [id number] Lidia Katie Medications Administered No information available. Allergies, Adverse Reactions, Alerts No information available. Results Date Name Value Unit Range Flag Description Office Visit: Office Visit: rm 9 ORALTOBACUSE Never Tobacco smoking status SMOK STATUS Former smoker Tob acco smoking status MEDS REVIEW Done Documenta tion of current medications (procedure) Plan of Care Type Date Detail Appointment 11:30 AM Glenny Stratton MD, [facility], [address], [place], [address], Procedures No information available. Vital Signs Date Name Value Unit Description BMI (Body Mass Index) 21.16 kg/m2 Bod y Mass Index (Ratio) Body Temperature 97 [degF] temperat ure E&M BP Diastolic 62 mm[Hg] blood pressu re, diastolic BP Systolic 106 mm[Hg] blood pressur e, systolic Heart Rate 60 /min pulse rate Height 65 [in_us] height E&M Respiratory Rate 16 /min respirat ory rate E&M Weight Measured 127.2 [lb_av] weight E& M Weight Measured 127.2 [lb_av] weight E& M Immunizations No information available. Advance Directives No information available.
--- OUTSIDE RECORDS SUMMARY | 2025-01-09 14:30 | XMS_ITS | Encounter Summary ---
Author Organization [facility] Address [address] [address] Care Team Providers Care Pyrotechnist Name Role Phone Miles Beavers MD Primary Care Provider [phone] Reason for Visit * Reason Comments Rheumatoid Arthritis Encounter Details Date Type Department Care Team (Late st Contact Info) Description 01/09/2025 2:30 PM EDT Office Visit [facility] [address] [address] Jewel Gibbs MD [address] [phone] Rheumatoid arthritis involving multiple sites with positive rheumatoid factor (Primary Dx); High risk medication use Social History Tobacco Use Types Packs/Day Years Used Date Smoking Tobacco: Former Cigarettes 1 58.5 0 07/06/1965 - 12/18/2001 Smokeless Tobacco: Never Tobacco Cessation:Counseling Given: Not Answered Alcohol Use Standard Drinks/Week Comments Yes 7 (1 standard drink = 0.6 oz pur e alcohol) 1 glass of wine daily [facility] Utilities Answer Date Recorded In the past 12 months has [employer], gas, oil, or water [facility] threatened to shut off services in your home? No 01/20/2024 AUDIT-C Answer Date Recorded Q1: How often do you have a drink containing alcohol? 4 or more times a week 01/20/2024 Q2: How many drinks containi ng alcohol do you have on a typical day when you are drinking? 1 or 2 Q3: How often do you have si x or more drinks on one occasion? Never 01/20/2024 Overall Financial Resource Strain (CARDIA) Answe r Date Recorded How hard is it for you to pa y for the very basics like food, housing, medical care, and heating? Not hard at all 01/20/2024 [facility] [place] [facility] - Occupational Stress Questionnaire Answer Date Recorded Do you feel stress - tense, restless, nervous, or anxious, or unable to sleep at night because your mind is troubled all the time - these days? Not at all 01/20/2024 Exercise Vital Sign Answer Date Recorde d On average, how many days pe r week do you engage in moderate to strenuous exercise (like a brisk walk)? 7 days 01/20/2024 On average, how many minutes do you engage in exercise at this level? Patient unable to answer 01/20/2024 Hunger Vital Sign Answer Date Recorded Within the past 12 months, y ou worried that your food would run out before you got the money to buy more. Never true 01/20/20 24 Within the past 12 months, t he food you bought just didn't last and you didn't have money to get more. Never true 01/20/2024 PRAPARE - Transportation Answer Date Re corded In the past 12 months, has l ack of transportation kept you from medical appointments or from getting medications? No 01/03 In the past 12 months, has l ack of transportation kept you from meetings, work, or from getting things needed for daily living? No 01/20/2024 Abuse Screen Answer Date Recorded Feels Unsafe at Home or Work/School no 01/20/2024 Feels Threatened by Someone no 01/03 Does Anyone Try to Keep You From Having Contact with Others or Doing Things Outside Your Home? no 01/20/2024 Physical Signs of Abuse Present no 01/20/2024 Housing Stability Answer Date Recorded Current Living Arrangements home 01/03 Potentially Unsafe Housing Conditions none 01/20/2024 Family and Community Support Answer En e Recorded If for any reason you need h elp with day-to-day activities such as bathing, preparing meals, shopping, managing finances, etc., do you get the help you need? I get all the help I need 01/20/2024 How often do you feel lonely or isolated from those around you? Rarely 01/20/2024 Employment Answer Date Recorded Do you want help finding or keeping work or a job? I do not need or want help 01/20/2024 Disabilities Answer Date Recorded Difficulty Concentrating, Remembering or Making Decisions no 01/20/2024 Difficulty Managing Errands Independently no 01/20/2024 Education Answer Date Recorded Do you want help with school or training? For example, starting or completing job training or getting a high school diploma, GED or equivalent No 01/20/2024 Preferred Language [place] Citizen 01/20/2024 PHQ-2 Answer Date Recorded Retired PHQ-9: Brief Depression Severity Measure Score 0 01/20/2024 Comments Unknown Sex and Gender Information Value Date Recorded Sex Assigned at Female 01/05/2025 10:06 AM EDT Legal Sex Female 11:19 AM EDT Gender Identity Not on file Sexual Orientation Straight 01/05/2025 10 :06 AM EDT documented as of this encounter Last Filed Vital Signs Vital Sign Reading Time Taken Comments Blood Pressure 118/66 01/09/2025 2:30 PM EDT Pulse 82 01/09/2025 2:30 PM EDT Temperature 36.4 C (97.5 F) 01/09/2025 2:30 PM EDT Respiratory Rate - - Oxygen Saturation - - Inhaled Oxygen Concentration - - Weight 56.2 kg (123 lb 12.8 oz) 01/09/2025 2:30 PM EDT Height 172.7 cm (5' 8 ) 01/09/2025 2:30 PM EDT Body Mass Index 18.82 01/09/2025 2:30 PM EDT documented in this encounter Progress Notes * Jewel Gibbs MD - 01/09/2025 2:30 PM EDT Images from the original note were not included. Office Follow Up Date: 01/09/2025 Patient Name: Mimi Hobbs Date of : 1945 Referring Physician: No ref. provider found Chief Complaint: Chief Complaint Patient presents with Rheumatoid Arthritis History of Present Illness: Mimi Hobbs is a 79 y.o. female who is here today for follow up onrheumatoid arthritis Rheumatologic history: She reports in her 50s she developed pain stiffness swelling in the bilateral hands. She was eventually diagnosed with rheumatoid arthritis. She previously was following with Rheumatology in [place] and then [place] and moved to [place] in 2023. Rheumatoid markers have been positive. She was Remicade infusions for many years at a dose of 300 mg every 5 weeks along with methotrexateonce weekly. These therapies were stopped 01/26 with fungal pneumonia She has had prior cervical surgery. She reports history of melanoma leg x2 status post resection. She was evaluated by Cardiology at [facility]. She reports history of COPD and is a former smoker. She reports having osteopenia and had bone density scan in [place]. Interim 04/19/2024: She developed a fungal pneumonia in January and was hospitalized 01/18/2024 through 02/04/2024 and discharged to [facility] for rehab. Continues on antifungal therapy per ID Dr. Stratton. Followed by pulmonary Dr. Miguel. She reports gradual improvement in her strength. Remicade last infused 01/04/2024 and methotrexate has been on hold since her hospitalization. No rheumatoid flare off DMARD and biologic. No swollen painful peripheral joints. Interim 01/09/2025: She reports a general improvement in her condition, despite being off methotrexate and Remicade forher RA since 01/26 due to a diagnosis of fungal pneumonia. She experiences intermittent pain, particularly in her hands, and notes persistent swelling, although it has significantly reduced. She continues to consult with pulmonary Dr. Miguel and ID Dr. Hayes, who have expressed satisfaction with her progress. She plans to finish antifungal therapy with voriconazole 01/23/2025. No swollen joints today. Rarely uses meloxicam. History of Present Illness Subjective Review of Systems: Review of Systems Constitutional: Negative for chills, fatigue, fever and unexpected weight loss. HENT: Negative for mouth sores, sinus pressure and sore throat. Eyes: Negative for pain and redness. Respiratory: Positive for shortness of breath. Negative for cough. Cardiovascular: Positive for leg swelling. Negative for chest pain. Gastrointestinal: Negative for abdominal pain, blood in stool, diarrhea, nausea, vomiting and GERD. Endocrine: Negative for polydipsia and polyuria. Genitourinary: Negative for dysuria, genital sores and hematuria. Musculoskeletal: Positive for arthralgias, back pain, gait problem, joint swelling, myalgias, neck pain and neck stiffness. Skin: Positive for dry skin, skin lesions and bruise. Negative for rash. Neurological: Positive for dizziness, weakness and numbness. Negative for seizures and memory problem. Hematological: Negative for adenopathy. Bruises/bleeds easily. Psychiatric/Behavioral: Negative for depressed mood. The patient is not nervous/anxious. Past Medical History: Past Medical History: Diagnosis Date Chronic hyponatremia 01/18/2024 Chronic hypotension 01/18/2024 COPD (chronic obstructive pulmonary disease) Emphysema of lung 2012 Ex-cigarette smoker 01/18/2024 GERD (gastroesophageal reflux disease) Hypercholesterolemia Lung nodule 2012 Melanoma LEG X2 Osteoarthritis Osteopenia Pneumonia 01/2024 Rheumatoid arthritis Past Surgical History: Past Surgical History: Procedure Laterality Date BRONCHOSCOPY N/A 01/27/2024 Procedure: BRONCHOSCOPY WITH ENDOBRONCHIAL ULTRASOUND; Surgeon: Dinesh Miguel MD; Location: [facility]; Service: Pulmonary; Laterality: N/A; Scope removed with balloon intact. BRONCHOSCOPY 01/2024 CERVICAL SPINE SURGERY X2 SECTION X3 LUNG BIOPSY TONSILLECTOMY Family History: Family History Problem Relation Age of Onset Arthritis Mother Alzheimer's disease Mother Bone cancer Father Prostate cancer Father Cervical cancer Father Rheum arthritis Daughter Breast cancer Daughter No Known Problems Daughter No Known Problems Son Social History: Social History Socioeconomic History Marital status: Tobacco Use Smoking status: Former Current packs/day: 0.00 Average packs/day: 1 pack/day for 58.5 years (58.5 ttl pk-yrs) Types: Cigarettes Start date: 07/06/1965 Quit date: 12/18/2001 Years since quittin.0 Smokeless tobacco: Never Vaping Use Vaping status: Never Used Substance and Sexual Activity Alcohol use: Yes Alcohol/week: 7.0 standard drinks of alcohol Types: 7 Glasses of wine per week Comment: 1 glass of wine daily Drug use: Never Sexual activity: Not Currently Partners: Male Medications: Current Outpatient Medications: Azelastine HCl 137 MCG/SPRAY solution, 2 spray(s) intranasally 2 times a day, Disp: , Rfl: gabapentin (NEURONTIN) 300 MG capsule, Take 1 capsule by mouth every night at bedtime., Disp: , Rfl: Magnesium Oxide -Mg Supplement 400 (240 Mg) MG tablet, take 1 tablet by mouth once daily, Disp: , Rfl: multivitamins-minerals (PRESERVISION AREDS 2) capsule capsule, Take 1 capsule by mouth 2 (Two) Times a Day., Disp: , Rfl: pantoprazole (PROTONIX) 40 MG EC tablet, take 1 tablet by mouth daily, Disp: , Rfl: Probiotic Product (Florajen3) capsule, as directed Orally, Disp: , Rfl: rosuvastatin (CRESTOR) 5 MG tablet, 1 tablet Orally Once a day for 30 day(s), Disp: , Rfl: voriconazole (VFEND) 200 MG tablet, Take 1 tablet by mouth 2 (Two) Times a Day., Disp: , Rfl: meloxicam (MOBIC) 7.5 MG tablet, Take 1 tablet by mouth Daily As Needed for Mild Pain. (Patient nottaking: Reported on 01/09/2025), Disp: 30 tablet, Rfl: 5 Allergies: No Known Allergies Objective Vital Signs: Vitals: 01/09/25 1430 BP: 118/66 BP Location: Left arm Patient Position: Sitting Cuff Size: Adult Pulse: 82 Temp: 97.5 ??F (36.4 ??C) Weight: 56.2 kg (123 lb 12.8 oz) Height: 172.7 cm (68 ) PainSc: 7 Body mass index is 18.82 kg/m??. Physical Exam: Physical Exam MUSCULOSKELETAL: No peripheral synovitis. No rheumatoid nodules or tophi. No swollen joints Scattered Heberden Berta's nodes hands. Tender cervical spine Complete joint exam was performed including the MCPs, PIPs, DIPs of the hands, wrists, elbows, shoulders, hips, knees and ankles. No soft tissue swelling or tenderness is present except as above. General: The patient is well-developed and well nourished. Cooperative, alert and oriented. Affect is normal. Hydration appears normal. HEENT: Normocephalic and atraumatic. Lids and conjunctiva are normal. Pupils are equal and sclera are clear. Oropharynx is clear NECK neck is supple without adenopathy, masses or thyromegaly. CARDIOVASCULAR: Regular rate and rhythm. No murmurs, rubs or gallops LUNGS: Effort is normal. Lungs are clear bilateral ABDOMEN: Not examined EXTREMITIES: Peripheral pulses are intact. No clubbing. SKIN: No rashes. No subcutaneous nodules. No digital ulcers. No sclerodactyly. NEUROLOGIC: Gait is normal. Strength testing is normal. No focal neurologic deficits Results Review: Labs: Lab Results Component Value Date GLUCOSE 92 08/23/2024 BUN 13 08/23/2024 CREATININE 0.88 08/23/2024 EGFR 67.4 08/23/2024 BCR 14.8 08/23/2024 K 3.4 (L) 08/23/2024 CO2 25.8 08/23/2024 CALCIUM 10.2 08/23/2024 ALBUMIN 4.5 08/23/2024 BILITOT 0.3 08/23/2024 AST 30 08/23/2024 ALT 8 08/23/2024 Lab Results Component Value Date WBC 7.56 08/23/2024 HGB 13.1 08/23/2024 HCT 38.6 08/23/2024 MCV 93.0 08/23/2024 PLT 239 08/23/2024 Lab Results Component Value Date SEDRATE 30 08/23/2024 Lab Results Component Value Date CRP <0.30 08/23/2024 Lab Results Component Value Date QUANTIFERO Incubation performed. 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 Cruz ([place], [place]) Moved from [place] to [place] 08/29; poodle Serology: +RF 64, +++CCP>250 (08/24/23) Prior: MTX, Remicade 300 mg (5mg/kg) q 5 weeks [facility] stopped 01/26 with fungal pneumonia hospitalized 01/18/24-02/04/24 (ID Dr Stratton, pulm Dr Miguel); positive urine histo and blasto antigens Low disease activity currently off methotrexate and Remicade both stopped with fungal pneumonia 01/26 sjc0 tjc 0 -Remicade last infused 01/04/2024 -Continue to hold Methotrexate and Remicade in light of fungal pneumonia (positive urine histo and blasto antigens) dx during hospitalization 01/17-02/04/24 Continues antifungal per ID Dr Stratton which she reportedly will finish around 01/23/2025. Clinically improving and feeling significantly stronger. No cough. No shortness of breath Labs reviewed are stable -Plan to avoid further anti-TNF biologic/Remicade therapy for her RA if possible moving forward in light of her fungal pneumonia - May need to restart methotrexate at some point in the future for her RA, but can likely wait a number of months as her rheumatoid continues to remain in low disease activity off DMARD. - Labs ordered for monitoring as below - physical therapy for shoulder pain - Recommend she actually take meloxicam 7.5 mg once daily as needed for OA pain hands neck spine Risks of NSAIDs discussed including GI upset, GI bleeding, renal or hepatic risks and the risk of cardiovascular disease and stroke. Warned patient not to take other NSAIDs including [id number] - Update hand x-rays today Return to clinic 4 months or sooner if RA flare off DMARD/biologic -High risk medication use Currently on hold Remicade, methotrexate since 01/26 with fungal pneumonia. QTB negative and hepatitis panel negative 01/26 Negative CXR 09/22/23 We discussed biologic agents at length. Risks and alternatives were discussed at length and the option of no treatment was also given. We discussed risks including but not limited to infections whichcan be unusual, severe, and deadly. When possible, these agents should be stopped immediately if infections occur. Unusual infection such as TB and fungal infections can occur. There may be an increased risk of lymphoma with these agents. Other risks can include a multiple sclerosis-like illness and worsening of heart failure. Infusion or injection reactions which can be deadly have been reported. Studies on have not been done so should be avoided while on these agents. Reactivation of a deadly brain virus and hepatitis viruses have been reported. Worsening of COPD has been seen with orencia. Elevated lipids, elevation in liver functions, and dangerous changes in blood counts have been seen with certain agents. Regular monitoring will be required. -Immunosuppression due to drug therapy Risks of methotrexate discussed and include but are not limited to severe liver damage that can be fatal, the possible need for liver biopsy, bone marrow suppression that can lead to dangerously low blood counts, GI side effects including mouth sores and diarrhea, fatigue, and rare risk of severe pulmonary complications. There should be no alcohol consumed with MTX. MTX can cause severe abnormalities whether the mother or father is taking the medication and thus must be avoided if is a possibility. All medication is to be taken one day a week only. The need for q 8-12 week labs and the need for folic acid supplementation were discussed. -Osteopenia S/p reclast 07/08/17 and 07/27/19 and February 2022 in [place] (every other year) Continue calcium vitamin D and weightbearing exercise Latest DEXA 09/01/24 [facility] shows osteopenia right hip femoral neck T- score -1.3, lumbar T-score 0.8 Recommend calcium 1200 mg daily, vitamin D 1000 IU daily and regular weightbearing exercise such aswalking Update bone density every 2 years -History of cervical spinal surgery S/p Cervical fusion 07/2021 Degenerative disc disease spine -Continue as needed NSAID Has done physical therapy -Malignant melanoma s/p removal melanoma leg 2022 with reported good margins. -Chronic obstructive pulmonary disease Former smoker 1. Rheumatoid arthritis involving multiple sites with positive rheumatoid factor 2. High risk medication use Assessment & Plan Orders Placed This Encounter Procedures XR Hand 2 View Bilateral CBC Auto Differential Comprehensive Metabolic Panel C-reactive Protein Sedimentation Rate No orders of the defined types were placed in this encounter. Follow Up: Return in about 4 months (around 05/12/2025). Discussed plan of care in detail with the patient today. Patient verbalized understanding and agrees. I confirm accuracy of unchanged data/findings which have been carried forward from previous visit. I have updated appropriately those that have changed. Jewel Gibbs MD [facility] [place] documented in this encounter Plan of Treatment Upcoming Encounters Date Type Department Care Team (Late st Contact Info) Description 04/05/2025 11:45 AM EDT Appointment [facility] [address] [phone] 04/19/2025 11:45 AM EDT Office Visit [facility] [address] [place] [address] Dinesh Miguel MD [address] [place] [address] 06/12/2025 1:00 PM EST Office Visit [facility] [address] [facility] [address] [place] [address] Jewel Gibbs MD 330 [facility] [address] [place] [address] Scheduled Orders Name Type Priority Associated Diagnoses Orde r Schedule CBC Auto Differential Lab Routine Rheumatoid arthritis involving multiple sites with positive rheumatoid factor High risk medication use Expected: 01/14/2025 (Approximate), Expires: 04/11/2026 Comprehensive Metabolic Panel Lab Routine Rheumatoid arthritis involving multiple sites with positive rheumatoid factor High risk medication use Expected: 01/14/2025 (Approximate), Expires: 04/11/2026 C-reactive Protein Lab Routine Rheumatoid arthritis involving multiple sites with positive rheumatoid factor High risk medication use Expected: 01/14/2025 (Approximate), Expires: 04/11/2026 Sedimentation Rate Lab Routine Rheumatoid arthritis involving multiple sites with positive rheumatoid factor High risk medication use Expected: 01/14/2025 (Approximate), Expires: 04/11/2026 documented as of this encounter Procedures Procedure Name Priority Date/Time Associated Diagnosis Comments XR HAND 2 VW BILATERAL Routine 01/09/2025 3:15 PM EDT Rheumatoid arthritis involving multiple sites with positive rheumatoid factor documented in this encounter Results * XR Hand 2 View Bilateral (01/09/2025 3:15 PM EDT) Anatomical Region Laterality Modality Upper Extremities, Hand Bilateral Radiogra phic Imaging 01/11/2025 4:34 PM EDT Impressions 01/11/2025 4:36 PM EDT Impression: 1.Joint space narrowing at the interphalangeal joints and MCP joints bilaterally. 2.Erosion at the second MCP joint on the right. Electronically Signed: Keegan Snowden MD 01/11/2025 4:36 PM EDT Workstation ID: [id number] Narrative 01/11/2025 4:36 PM EDT XR HAND 2 VW BILATERAL Date of Exam: 01/09/2025 3:10 PM EDT Indication: pain Comparison: None available. Findings: There is joint space narrowing identified at the interphalangeal joints bilaterally. There is joint space narrowing at the MCP joints to a lesser degree. There is an erosion identified at the second MCP joint on the right. There are degenerative changes at the first carpal metacarpal articulation on the left. Degenerative cysts are identified in the carpal navicular bilaterally. No fractures are identified. Procedure Note Keegan Snowden III, MD - 01/11/2025 XR HAND 2 VW BILATERAL Date of Exam: 01/09/2025 3:10 PM EDT Indication: pain Comparison: None available. Findings: There is joint space narrowing identified at the interphalangeal jointsbilaterally. There is joint space narrowing at the MCP joints to a lesserdegree. There is an erosion identified at the second MCP joint on theright. There are degenerative changes at the first carpal metacarpal articulation on the left. Degenerativecysts are identified in the carpal navicular bilaterally. No fractures areidentified. IMPRESSION: Impression: 1.Joint space narrowing at the interphalangeal joints and MCP jointsbilaterally. 2.Erosion at the second MCP joint on the right. Electronically Signed: Keegan Snowden MD 01/11/2025 4:36 PM EDT Workstation ID: [id number] Jewel Gibbs MD [facility] Final Result documented in this encounter Visit Diagnoses Diagnosis Rheumatoid arthritis involving multiple sites with positive rheumatoid factor- Primary High risk medication use documented in this encounter Additional Health Concerns Infection Onset Date Last Indicated Resolved Time Tuberculosis (rule out) 01/27/2024 01/27/2024 documented as of this encounter Care Teams Pyrotechnist Relationship Specialty Start Date End Date Miles Beavers MD [address] [place] [address] [place] [address] PCP - General Family Medicine 12/10/23 documented as of this encounter
--- OUTSIDE RECORDS SUMMARY | 2025-01-09 15:15 | XMS_ITS | Encounter Summary ---
Author Organization [facility] Address [address] [place] [address] Care Team Providers Care Corporate Claims Examiner Name Role Phone Miles Beavers MD Primary Care Provider + [phone] Encounter Details Date Type Department Care Team (Late st Contact Info) Description 01/09/2025 3:15 PM EDT Ancillary Procedure [facility] RHEUMATOLOGY [address] [address] Social History Tobacco Use Types Packs/Day Years Used Date Smoking Tobacco: Former Cigarettes 1 58.5 0 07/06/1965 - 12/18/2001 Smokeless Tobacco: Never Alcohol Use Standard Drinks/Week Comments Yes 7 (1 standard drink = 0.6 oz pur e alcohol) 1 glass of wine daily [facility] Utilities Answer Date Recorded In the past 12 months has [employer] electric, gas, oil, or water company threatened to shut off services in your [...] and heating? Not hard at all 01/20/2024 [facility] of Occupat ional Health - Occupational Stress [...] GED or equivalent No 01/20/2024 Preferred Language British 01/20/2024 PHQ-2 Answer Date Recorded Retired PHQ-9: Brief Depression Severity Measure Score 0 01/20/2024 Comments Unknown Sex and Gender Information Value Date Recorded Sex Assigned at Female 01/05/2025 10:06 AM EDT Legal Sex Female 11:19 AM EDT Gender Identity Not on file Sexual Orientation Straight 01/05/2025 10 :06 AM EDT documented as of this encounter Plan of Treatment Upcoming Encounters Date Type Department Care Team (Late st Contact Info) Description 04/05/2025 11:45 AM EDT Appointment [facility] AT [address] [address] 04/19/2025 11:45 AM EDT Office Visit [facility] PULMONARY & CRITICAL CARE MEDICINE [address] [place] [address] Dinesh Miguel MD [address] [place] [address] 06/12/2025 1:00 PM EST Office Visit [facility] [address] [phone] Jewel Gibbs MD [address] [address] documented as of this encounter Procedures Procedure [...] MD 01/11/2025 4:36 PM EDT Workstation ID: [id number] Narrative 01/11/2025 4:36 PM EDT XR HAND [...] MD 01/11/2025 4:36 PM EDT Workstation ID: [id number] Jewel Gibbs MD IMG DIAGNOSTIC IMAGING [place] [place] Final Result documented in this encounter Visit Diagnoses Not on filedocumented in this encounter Additional Health Concerns Infection Onset Date Last Indicated Resolved Time Tuberculosis (rule out) 01/27/2024 01/27/2024 documented as of this encounter Care Teams Corporate Claims Examiner Relationship Specialty Start Date End Date Miles Beavers MD [address] [place] [facility] [address] [place] [address] PCP - General Family Medicine 12/10/23 documented as of this encounter
--- OUTSIDE RECORDS SUMMARY | 2025-02-22 10:17 | XMS_ITS | Encounter Summary ---
Author Organization [facility] Address [address] [place] [address] Care Team Providers Care Community Pharmacist Name Role Phone Miles Beavers MD Primary Care Provider + [phone] Encounter Details Date Type Department Care Team (Late st Contact Info) Description 02/01/2025 Telephone [facility] RHEUMATOLOGY [address] [address] Jewel Gibbs MD [address] [id number] Social History Tobacco Use Types Packs/Day Years Used Date Smoking Tobacco: Former Cigarettes 1 58.5 0 07/06/1965 - 12/18/2001 Smokeless Tobacco: Never Alcohol Use Standard Drinks/Week Comments Yes 7 (1 standard drink = 0.6 oz pur e alcohol) 1 glass of wine daily [facility] Utilities Answer Date Recorded In the past 12 months has [employer], gas, oil, or water [employer] threatened to shut off services in your [...] Never 01/20/2024 Overall Financial Resource Strain (CARDIA) Rav[place] r Date Recorded How hard is it for you to pa y for the very basics like food, housing, medical care, and heating? Not hard at all 01/20/2024 [facility] [place] of Occupat ional Health - Occupational Stress [...] GED or equivalent No 01/20/2024 Preferred Language Sri Lankan 01/20/2024 PHQ-2 Answer Date Recorded Retired PHQ-9: Brief Depression Severity Measure Score 0 01/20/2024 Comments Unknown Sex and Gender Information Value Date Recorded Sex Assigned at Female 01/05/2025 10:06 AM EDT Legal Sex Female 11:19 AM EDT Gender Identity Not on file Sexual Orientation Straight 01/05/2025 10 :06 AM EDT documented as of this encounter Miscellaneous Notes * Telephone Encounter - Kendra Conti MA - 02/02/2025 10:23 AM EDT Pt notified. -STEVIE Mendoza * Telephone Encounter - Jewel Gibbs MD - 02/01/2025 5:21 PM EDT She could try increasing the meloxicam to 7.5 mg 1 tablet twice daily as needed joint pain New prescription sent * Telephone Encounter - Calvin Pendleton MA - 02/01/2025 9:39 AM EDT See message, please advise. * Telephone Encounter - Agustin Jacobs RegSched Rep - 02/01/2025 8:55 AM EDT PT WAS SWITCHED OVER TO MELOXICAM AT LAST APPT AND STATES IT ISN'T REALLY HELPING. SHE HAS BEEN HAVING SEVERE WRIST AND THUMB PAIN RECENTLY. PT STATES THAT DR GIBBS SAID SHE COULD INCREASE THE DOSAGEOR ADD ANOTHER MEDICATION IF IT WASN'T HELPING AND SHE'D LIKE TO DISCUSS THOSE OPTIONS. PLEASE CALLAND ADVISE documented in this encounter Plan of Treatment Upcoming Encounters Date Type Department Care Team (Late st Contact Info) Description 04/05/2025 11:45 AM EDT Appointment [facility] [address] [place] [phone] 04/19/2025 11:45 AM EDT Office Visit [facility] PULMONARY & CRITICAL CARE MEDICINE [address] [place] [phone] Dinesh Miguel MD [address] [place] [address] 06/12/2025 1:00 PM EST Office Visit [facility] RHEUMATOLOGY [address] [address] Jewel Gibbs MD [address] [address] documented as of this encounter Visit Diagnoses Not on filedocumented in this encounter Additional Health Concerns Infection Onset Date Last Indicated Resolved Time Tuberculosis (rule out) 01/27/2024 01/27/2024 documented as of this encounter Care Teams Community Pharmacist Relationship Specialty Start Date End Date Miles Beavers MD [address] [place] [facility] [address] [facility] [address] [place] [address] PCP - General Family Medicine 12/10/23 documented as of this encounter
--- OUTSIDE RECORDS SUMMARY | 2025-02-22 10:17 | XMS_ITS | Clinical Summary ---
Author Organization [facility] Address [address] [place] [address] Care Team Providers Care Paraprofessional Aide Name Role Phone Miles Beavers MD Primary Care Provider + [phone] Allergies No known active allergies Medications gabapentin (NEURONTIN) 300 MG capsule Take 1 capsule by mouth every night at bedtime. Active voriconazole (VFEND) 200 MG tablet Take 1 tablet by mouth 2 (Two) Times a Day. 4 Active Magnesium Oxide -Mg Supplement 400 (240 Mg) MG tablet take 1 tablet by mouth once daily 4 Active pantoprazole (PROTONIX) 40 MG EC tablet take 1 tablet by mouth daily 4 Active Azelastine HCl 137 MCG/SPRAY solution 2 spray(s) intranasally 2 times a day Active Probiotic Product (Florajen3) capsule as directed Orally Active rosuvastatin (CRESTOR) 5 MG tablet 1 tablet Orally Once a day for 30 day(s) Active multivitamins- minerals (PRESERVISION AREDS 2) capsule capsule Take 1 capsule by mouth 2 (Two) Times a Day. Active meloxicam (MOBIC) 7.5 MG tablet Take 1 tablet by mouth 2 (Two) Times a Day As Needed for Mild Pain. 60 tablet 5 5 Active meloxicam (MOBIC) 7.5 MG tablet Take 1 tablet by mouth Daily As Needed for Mild Pain. 30 tablet 5 5 025 Discontin ued(Reord er) Active Problems Problem Noted Date Diagnosed Date Pneumonia 01/18/2024 Ex-cigarette smoker 01/18/2024 Chronic hyponatremia 01/18/2024 Chronic hypotension 01/18/2024 Elevated LFTs 01/18/2024 Rheumatoid arthritis involvi ng multiple sites with positive rheumatoid factor 12/10/2023 Assessment & Plan (12/10/2023 12:22 PM EDT): Diagnosed rheumatoid arthritis in her mid 50s Prior front end ui developer in [place] Dr. Cruz ([place], [place]) Moved from [place] to [place] 08/29; poodle +RF 64, +++CCP>250 (08/24/23) Current: Methotrexate, Remicade infusion 300 mg (5mg/kg) every 5 weeks [facility] Low disease activity on methotrexate and Remicade. [id number] tjc 0 good prognosis - Remicade infusion every 5 weeks [facility]. -continue on methotrexate 6 tablets once weekly. Labs ordered today for monitoring and continued biologic therapy as below Standing lab order provided for labs every 5 weeks with her infusions also Reviewed records from her former front end ui developer for review including bone density, hand x-rays Return to clinic 4 months High risk medication use 12/10/2023 Assessment & Plan (12/10/2023 8:59 AM EDT): Remicade, methotrexate. QTB negative 08/24/23, hepatitis panel negative 08/24/23 Negative CXR 09/22/23 We discussed biologic agents at length. Risks and alternatives were discussed at length and the option of no treatment was also given. We discussed risks including but not limited to infections which can be unusual, severe, and deadly. When possible, [...] certain agents. Regular monitoring will be required. Immunosuppression due to drug therapy 12/10/2023 Assessment & Plan (12/10/2023 8:59 AM EDT): Risks of methotrexate discussed and include but [...] need for folic acid supplementation were discussed. Osteopenia of multiple sites 12/10/2023 Assessment & Plan (12/10/2023 12:22 PM EDT): S/p reclast 07/08/17 and 07/27/19 and February 2022 in [place] (every other year) Continue calcium vitamin D and weightbearing exercise Update bone density scan History of cervical spinal surgery 12/10/2023 Assessment & Plan (12/10/2023 12:22 PM EDT): S/p Cervical fusion 07/2021 Degenerative disc disease spine Malignant melanoma 12/10/2023 Assessment & Plan (12/10/2023 8:59 AM EDT): s/p removal melanoma leg 2022 with reported good margins. Chronic obstructive pulmonary disease 12/10/2023 Assessment & Plan (12/10/2023 8:59 AM EDT): Former smoker Encounters Date Type Department Care Team Description 02/01/2025 Telephone [facility] [address] [phone] Jewel Gibbs MD 01/11/2025 Results Follow-Up [facility] [address] [address] Jewel Gibbs MD 01/09/2025 3:15 PM EDT Ancillary Procedure [facility] [address] [address] 01/09/2025 2:30 PM EDT Office Visit [facility] [address] [address] Jewel Gibbs MD Rheumatoid arthritis involving multiple sites with positive rheumatoid factor (Primary Dx); High risk medication use 01/09/2025 Travel from Last 3 Months Immunizations Immunization Administration Dates Next Due ABRYSVO (RSV, 60+ or pregnan t women 32-36 wks) 05/12/2024 Fluad Quad 65+ 03/20/2022,03/28/2021,03/22/2020 Fluzone High-Dose 65+YRS 04/04/2024 Shingrix 07/10/2022,03/26/2022 Tdap 12/13/2021 Family History Medical History Relation Name Comments Breast cancer Daughter 1 Rheum arthritis Daughter 1 No Known Problems Daughter 2 Bone cancer Father Cervical cancer Father Prostate cancer Father Alzheimer's disease Mother Arthritis Mother No Known Problems Son Relation Name Status Comments Daughter 1 Alive Daughter 2 Alive Father Mother Son Alive Social History Tobacco Use Types Packs/Day Years Used Date Smoking Tobacco: Former Cigarettes 1 58.5 0 07/06/1965 - 12/18/2001 Smokeless Tobacco: Never Tobacco Cessation:Counseling Given: Not Answered Alcohol Use Standard Drinks/Week Comments Yes 7 (1 standard drink = 0.6 oz pur e alcohol) 1 glass of wine daily [employer] Answer Date Recorded In the past 12 months has [employer], gas, oil, or water [facility] threatened to shut off services in your [...] and heating? Not hard at all 01/20/2024 [facility] of Occupat ional Health - Occupational Stress [...] GED or equivalent No 01/20/2024 Preferred Language Marshallese 01/20/2024 PHQ-2 Answer Date Recorded Retired PHQ-9: Brief Depression Severity Measure Score 0 01/20/2024 Comments Unknown Sex and Gender Information Value Date Recorded Sex Assigned at Female 01/05/2025 10:06 AM EDT Legal Sex Female 11:19 AM EDT Gender Identity Not on file Sexual Orientation Straight 01/05/2025 10 :06 AM EDT Last Filed Vital Signs Vital Sign Reading Time Taken Comments Blood Pressure 118/66 01/09/2025 2:30 PM EDT Pulse 82 01/09/2025 2:30 PM EDT Temperature 36.4 C (97.5 F) 01/09/2025 2:30 PM EDT Respiratory Rate 18 02/04/2024 8:34 AM EDT Oxygen Saturation 98% 10/28/2024 12: 47 PM EDT room air at rest Inhaled Oxygen Concentration - - Weight 56.2 kg (123 lb 12.8 oz) 01/09/2025 2:30 PM EDT Height 172.7 cm (5' 8 ) 01/09/2025 2:30 PM EDT Body Mass Index 18.82 01/09/2025 2:30 PM EDT Plan of Treatment Upcoming Encounters Date Type Department Care Team (Late st Contact Info) Description 04/05/2025 11:45 AM EDT Appointment [facility] AT [address] [address] 04/19/2025 11:45 AM EDT Office Visit [facility] PUL[facility] & CRITICAL CARE MEDICINE [address] [place] [address] Dinesh Miguel MD [address] [place], [place] [id number] 06/12/2025 1:00 PM EST Office Visit [facility] 330 [facility] [address] [place] [address] Jewel Gibbs MD Wilfrido LAO [facility] [address] [place] [id number] Health Maintenance Due Date Last Done Comments DXA SCAN 1945 Pneumococcal Vaccine 50+ (1 of 2 - PCV) 1964 ANNUAL WELLNESS VISIT 12/08/2023 COVID-19 Vaccine (5 - Modern a risk season) 2024 04/04/2024, 05/04/2022, 11/12/2021, Additional history exists INFLUENZA VACCINE 04/05/2025 04/04/2024, , 03/28/2021, Additional history exists TDAP/TD VACCINES (2 - Td or Tdap) 12/14/2031 022 ZOSTER VACCINE Completed 07/10/2022, 03/26/2022 HEPATITIS C SCREENING Completed 01/18/2024 RSV Vaccine - Adults Completed 05/12/2024 Procedures Procedure Name Priority Date/Time Associated Diagnosis Comments XR HAND 2 VW BILATERAL Routine 01/09/2025 3:15 PM EDT Rheumatoid arthritis involving multiple sites with positive rheumatoid factor HEPATITIS PANEL, ACUTE STAT 01/18/2024 12:54 PM EDT from Last 3 Months or Most Recently Relevant to Health Maintenance Results * XR Hand 2 View Bilateral (01/09/2025 3:15 PM EDT) Anatomical Region Laterality Modality Upper Extremities, Hand Bilateral [facility] Imaging 01/11/2025 4:34 PM EDT Impressions 01/11/2025 4:36 PM EDT Impression: 1.Joint space narrowing at the interphalangeal joints and MCP joints bilaterally. 2.Erosion at the second MCP joint on the right. Electronically Signed: Keegan Snowden MD 01/11/2025 4:36 PM EDT Workstation ID: [id number] Narrative 01/11/2025 4:36 PM EDT XR HAND [...] MD 01/11/2025 4:36 PM EDT Workstation ID: [id number] Jewel Gibbs MD IMG DIAGNOSTIC IMAGING [facility] Final Result * Hepatitis Panel, Acute (01/18/2024 12:54 PM EDT) Hepatitis B Surface Ag Non-Reacti ve Non-Reacti ve 01/18/2024 1:43 PM EDT [facility] Hep A IgM Non-Reacti ve Non-Reacti ve 01/18/2024 1:43 PM EDT [facility] Hep B C IgM Non-Reacti ve Non-Reacti ve 01/18/2024 1:43 PM EDT [facility] Hepatitis C Ab Non-Reacti ve Non-Reacti ve 01/18/2024 1:43 PM EDT [facility] Blood Venipuncture / Unknown 01/18/2024 12:54 PM EDT 01/18/2024 1:07 PM EDT Narrative [facility] - 01/18/2024 1:43 PM EDT Results may be falsely decreased if patient taking Biotin. Irena Roberto MD LAB BLOOD ORDERABLES Meeta pawel Result [facility]
[address] [place] [address], from Last 3 Months or Most Recently Relevant to Health Maintenance Additional Health Concerns Infection Onset Date Last Indicated Tuberculosis (rule out) 01/27/2024 01/27/20 Insurance [facility] MEDICARE A & B Advance Directives Documents on File Type Date Recorded Patient Dewatering Filtering Supervisor Expl anation POWER OF MANAGER FIELD INVESTIGATIONS - SCAN 01/28/2024 12:05 PM TEN BHLEX, 01/26/20 24 * CPR (Attempt to Resuscitate) (Latest Code Status on File) Date Activated Date Inactivated Comments 01/18/2024 5:41 PM 02/04/2024 3:18 PM Question Answer Comments Code Status (Patient has no pulse and is not breathing): CPR (Attempt to Resuscitate) Medical Interventions (Patie nt has pulse or is breathing): Full Support Level Of Support Discussed With: Patient Care Teams Paraprofessional Aide Relationship Specialty Start Date End Date Miles Beavers MD [address] [place] [facility] [address] [facility] [address] [place] [address] PCP - General Family Medicine 12/10/23
--- OUTSIDE RECORDS SUMMARY | 2025-02-22 10:17 | XMS_ITS | Patient Health Record ---
Author Organization [facility] Address [address] [facility] [address] [place] [id number] Care Team Providers Care Bulk Loader Name Role Phone Miles Beavers Unavailable [phone] NicholasCassie Unavailable [phone] Allergies No Known Allergies Results Component Value Reference Range Notes P-Basic Metabolic Panel (BMP ) Reviewed date:03/03/2024 09:20:02 AM Interpretation:gluc 168, Cr 1.01, gfr 57 Performing Lab: Notes/Report: Test performed by [facility] [employer] [address] [place] [address] , [address], [place] [address] Denis Varner MD, [place] Laboratory Assistant CLIA: [id number] Sodium 137 135-145 mmol/L Potassium 5.2 3.5-5.3 mmol/L Chloride 105 97-108 mmol/L CO2 26 22-32 mmol/L Glucose 168 65-99 mg/dL BUN 16 8-23 mg/dL Creatinine 1.01 0.50-1.00 mg/dL Calcium 9.4 8.6-10.4 mg/dL eGFR by Creatinine 57 >59 mL/min/1.73m2 CBC Venipuncture (in house) Reviewed date:03/03/2024 09:20:03 [...] - 38 platlet 303 100 - 400 Influenza Screen (in house) Reviewed date:08/08/2024 03:46:00 [...] PM Interpretation: Performing Lab: Notes/Report: Result: Neg Mammogram Reviewed date:07/08/2024 03:25:57 PM Interpretation:Negative, annual f/u Performing Lab: Notes/Report: Negative, annual f/u result Negative, annual f/u Reason For Referral Reason [facility] Diagnosis 1 Lymphedema (I89.0) Referral Organization [facility] Referring Provider First Name Miles Referring Provider Last Name Huntington Referring Provider [facility] Referred Provider Physical Therapy, . Referred Provider Specialty Physical The rapist General Notes Neela Alfonso 03/02/20 24 2:30:57 PM > faxed referral to [facility] PT Referral Priority Routine Reason patient requested ad ditional PT Diagnosis 1 Lymphedema (I89.0) Referral Organization [facility] Referring Provider First Name Miles Referring Provider Last Name Huntington Referring Provider [facility] ctice General Notes Neela Alfonso 3:55:16 PM > updated referral sent to [facility] PT Referral Priority Routine Reason patient is requestin g PT for balance issues Diagnosis 1 Balance problem (R26 .89) Referral Organization [facility] Referring Provider First Name Miles Referring Provider Last Name Ruthann Referring Provider [facility] ctice Referred Provider Specialty Physical The rapist General Notes Neela Alfonso 11:18:16 AM > faxed to [facility] PT Referral Priority Routine Reason patient is requestin g OT for balance issues Diagnosis 1 General weakness (R5 3.1) Referral Organization [facility] Referring Provider First Name Miles Referring Provider Last Name Ruthann Referring Provider Speciality Family Ash agarwal Referred Provider Specialty Occupational Therapy General Notes Neela Alfonso 024 11:24:24 AM > faxed referral to [facility] PT for OT, Neela Alfonso 05/11/2024 11:04:24 AM > refaxed with new diagnosis code Referral Priority Routine Medications Medication SIG (Take, Route, Frequency, Duration) Notes Start Date End Date Status Pantoprazole Sodium 40 MG 1 tablet Orall y Once a day Active Magnesium Oxide -Mg Supplement 400 (240 Mg) MG 1 tablet with food Orally Twice a day; Duration: 90 days Active Rosuvastatin Calcium 5 MG 1 tablet Orall y Once a day; Duration: 30 days Active Voriconazole 200 MG 1 tablet 1 hour befo re or 1 hour after meals Orally every 12 hrs Active Azelastine HCl 137 MCG/SPRAY 2 puffs (1 spray in each nostril) Nasally Twice a day; Duration: 30 days 02/09/2025 Active Fluticasone Propionate 50 MCG/ACT 1 spray in each nostril Nasally Twice a day; Duration: 30 days 02/09/2025 Active Gabapentin 300 MG 1 capsule Orally Onc e a day; Duration: 90 days 09/27/2024 Active Florajen3 - as directed Orally Active Problems Problem Type SNOMED Code ICD Code Onset Dates Problem Status W/U Status Risk Notes Problem Lymphedema (83760358) Lymphedema (I89.0) Active confirmed Problem History of malignant melanoma of the skin (068079670411) Hx of melanoma of skin (Z85.820) Active confirmed Problem Pure hypercholesterolemia (976844264) Pure hypercholesterolemia (E78.00) Active confirmed Problem Impairment of balanc e (376635426) Balance problem (R26.89) Active confirmed Problem Cervical arthritis (disorder) (589468668) 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) Active confirmed Problem Gastroesophageal reflux disease (782169974) Gastroesophageal reflux disease, unspecified whether esophagitis present (K21.9) Active confirmed Problem Rheumatoid arthritis (92769738) Rheumatoid arthritis, involving unspecified site, unspecified whether rheumatoid factor present (M06.9) Active confirmed Problem 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 [address] [place], [place] [id number] 03/02/2024 Miles Huntington Disseminated histopl asmosis B39.9 ; Idiopathic hypotension I95.0 and Lymphedema I89.0 [facility] [address] [place], [place] [id number] 03/23/2024 Miles Huntington Lymphedema I89.0 and Skin tear of right forearm without complication, initial encounter S51.811A [facility] [address] [place], [place] [id number] 06/22/2024 Miles Huntington Lymphedema I89.0 and Gastroesophageal reflux disease, unspecified whether esophagitis present K21.9 [facility] [address] [facility] [address] [place], [place] [id number] 08/08/2024 Miles Huntington Acute URI J06.9 [facility] [address] [facility] [address] [place], [place] [id number] 12/21/2024 Miles Huntington Pure hypercholestero lemia E78.00 ; Peripheral edema R60.0 ; Gastroesophageal reflux disease, unspecified whether esophagitis present K21.9 ; Long-term use of high-risk medication Z79.899 ; Rheumatoid arthritis, involving unspecified site, unspecified whether rheumatoid factor present M06.9 and BMI 20.0-20.9, adult Z68.20 [facility] [address] [facility] [address] [place], [place] [id number] 03/03/2024 Miles Huntington [facility] [address] [facility] [address] [place] [id number] 03/17/2024 Miles Huntington [facility] [address] [place], [place] [id number] 03/29/2024 Miles Huntington Cervical radiculopat hy M54.12 [facility] [address] [place] [id number] 04/27/2024 Miles Huntington Lymphedema I89.0 [facility] [address] [place], [place] [id number] 05/04/2024 Miles Huntington [facility] [address] [place] [id number] 06/28/2024 Miles Huntington Cervical radiculopat hy M54.12 [facility] [address] [place] [id number] 07/21/2024 Miles Huntington [facility] [address] [place] [id number] 08/12/2024 Miles Huntington [facility] [address] [place] [id number] 09/27/2024 Miles Huntington Cervical radiculopat hy M54.12 [facility] [address] [place] [id number] 02/07/2025 Miles Huntington [facility] [address] [place], [place] [id number] 02/08/2025 Miles Huntington Assessments Encounter Date Diagnosis (ICD Code) Assessment Notes Treatment Notes Treatment Clinical Notes Section Notes 03/02/2024 Idiopathic hypotensi on (ICD-10 - I95.0) 03/02/2024 Disseminated histoplasmosis (ICD-10 - B39.9) Patient to keep f/u appt. with infectious disease in [place] 03/23/2024 Lymphedema (ICD-10 - I89.0) Continue treatment at [facility] PT/rehab clinic 03/23/2024 Skin tear of right forearm without complication, initial encounter (ICD-10 - S51.811A) wound care discussed with patient 03/29/2024 Cervical radiculopat hy (ICD-10 - M54.12) 04/27/2024 Lymphedema (ICD-10 - I89.0) 06/22/2024 Lymphedema (ICD-10 - I89.0) Much improved. 06/22/2024 Gastroesophageal ref lux disease, unspecified whether esophagitis present (ICD-10 - K21.9) 06/28/2024 Cervical radiculopat hy (ICD-10 - M54.12) 08/08/2024 Acute URI (ICD-10 - J06.9) 09/27/2024 Cervical radiculopat hy (ICD-10 - M54.12) 12/21/2024 Pure hypercholesterolemia (ICD-10 - E78.00) 12/21/2024 Peripheral edema (ICD-10 - R60.0) Compression stockings recommended 12/21/2024 Gastroesophageal ref lux disease, unspecified whether esophagitis present (ICD-10 - K21.9) 03/02/2024 Lymphedema (ICD-10 - I89.0) 12/21/2024 Long-term use of high-risk medication (ICD-10 - Z79.899) 12/21/2024 Rheumatoid arthritis , involving unspecified site, unspecified whether rheumatoid factor present (ICD-10 - M06.9) 12/21/2024 BMI 20.0-20.9, adult (ICD-10 - Z68.20) Plan Of Treatment Pending Test Test Name Order Date TSH 12/21/2024 CMP 12/21/2024 lipid profile 12/21/2024 CBC 12/21/2024 Next Appt Details Provider Name:Miles Kwong , 06/23/2025 11:00:00 AM, [address] [facility], [address], [place], [id number], Insurance Providers Payer Name Payer Address Payer Phone Subscriber Number Group Number Insured Name Patient Relationship to Insured Coverage Start Date Coverage End Date MEDICARE PART B [address] [address] [place] [id number] NATALIE GIVENS Self - patient is the insured [employer] [address] [address] [place] [id number] NATALIE GIVENS Self - patient is the insured Medical (General) History Medical History History ICD Code Asthma Hyperlipidemia Allergic Rhinitis Rheumatoid Arthritis Melanoma hypotension Esophageal reflux histoplasmosis, Dx: January 2024 COPD Surgical History Surgery Date(Month/Year) Tonsilectomy 1950 03/10/1967 10/21/1968 01/02/1971 Melanoma Removal 2022 Hospitalization History Reason Date(Month/Year) Histoplasmosis, treated at [facility] 02/2024
--- OUTSIDE RECORDS SUMMARY | 2025-02-22 10:18 | XMS_ITS | Encounter Summary ---
Author Organization [facility] Address [address] [place] [address] Care Team Providers Care Cadence Specialists Name Role Phone Miles Beavers MD Primary Care Provider + [phone] Encounter Details Date Type Department Care Team (Late st Contact Info) Description 09/28/2024 Results Follow-Up [facility] [address] [place] [address] Dinesh Miguel MD [facility] [place] [address] Social History Tobacco Use Types Packs/Day Years Used Date Smoking Tobacco: Former Cigarettes 1 58.5 0 07/06/1965 - 12/18/2001 Smokeless Tobacco: Never Alcohol Use Standard Drinks/Week Comments Yes 7 (1 standard drink = 0.6 oz pur e alcohol) [address] [facility] Utilities Answer Date Recorded In the past 12 months has [employer], [employer], oil, or water [employer] threatened to shut off services in your [...] and heating? Not hard at all 01/20/2024 [facility] of Occupat ional Health - Occupational Stress [...] GED or equivalent No 01/20/2024 Preferred Language Iranian 01/20/2024 PHQ-2 Answer Date Recorded Retired PHQ-9: [...] Info) Description 04/05/2025 11:45 AM EDT Appointment [facility] [address] [address] 04/19/2025 11:45 AM EDT Office Visit [facility] PULMONARY & CRITICAL CARE MEDICINE [address] [place] [phone] Dinesh Miguel MD [address] [place] [address] 06/12/2025 1:00 PM EST Office Visit [facility] RHEUMATOLOGY [address] [address] Jewel Gibbs MD [address] [address] documented as of this encounter Visit Diagnoses Not on filedocumented in this encounter Additional Health Concerns Infection Onset Date Last Indicated Resolved Time Tuberculosis (rule out) 01/27/2024 01/27/2024 documented as of this encounter Care Teams Cadence Specialists Relationship Specialty Start Date End Date Miles Beavers MD [address] [facility] [address] [facility] [address] [place] [address] PCP - General Family Medicine 12/10/23 documented as of this encounter
--- OUTSIDE RECORDS SUMMARY | 2025-02-22 10:18 | XMS_ITS | Patient Health Record ---
Author Organization [facility] Address [address] [place] [address] Care Team Providers Care Plasterer Apprentice Name Role Phone Miriam, Charly Primary Care Provider Keegan Stoddard Unavailable [phone] Reason For Referral No Information Medications Medication SIG (Take, Route, Frequency, Duration) Notes Start Date End Date Status Folic Acid 1 MG 2 tablet Orally Once a day Active Methotrexate (Anti-Rheumatic) 2.5 MG 4 tablets Orally ONCE A WEEK Active Remicade 100 MG as directed Intravenous Active Allergy Medication 25 MG 1 capsule as ne eded Orally every 6 hrs Active Immunizations Vaccine Route Administration Date Status Comme nts Pneumonia Vaccine Unknown 11/25/2012 Administered Problems Problem Type SNOMED Code ICD Code Onset Dates Problem Status W/U Status Risk Notes Problem Right upper quadrant pain (850657698) Abdominal pain, right upper quadrant (789.01) Active confirmed Problem Pre-surgery evaluation (640508814) Medicare screening colon (V72.83) Active confirmed the patient appears to be medically stable to undergo colonoscopy without contraindication at this time. Appropriate medications will be discontinued to minimize undue complications. Problem History of malignant neoplasm of colon (436859134) Personal history of colon cancer (V10.05) Active confirmed Mary has a kno wn history of colon cancer in situ during last colonoscopy evaluation. She had a large colon polyp and in a contained adenocarcinoma changes without any evidence of local invasion int lymphatic or vascular system and the margins were free of cancer cells. Apparently the patient was not aware of this information. The patient was advised to have her children undergo colonoscopy at age 41 Problem History of polyp of colon (situation) (399986203) Personal history of colonic polyps (Z86.010) Active confirmed The patient has a known history of colon polyp and should undergo a colon polyp surveillance colonoscopy to monitor for any recurrent colon polyp. The patient appears to be medically stable to undergo colonoscopy without any contraindications at this time. Appropriate medications will be discontinued to minimize undue complications.the patient has been scheduled for possible lung tumor surgery in the near future. Furthermore, the patient will be going to her grandson's wedding in March. She'll return back to our office after the wedding Problem Gastroesophageal reflux disease (526118991) Gastro-esoph ageal reflux disease without esophagitis (K21.9) Active confirmed The patient has a history of reflux condition and should be considered for further endoscopic evaluation to assess for any reflux related esophageal mucosal damage leading to Doran's esophagus, stricture, erosions or ulcerations. The patient will continue with the current regimen of dietary/lifestyle modifications and in conjunction with a pharmacological treatment to minimize recurrent symptoms of reflux. The patient was provided with an educational material regarding reflux condition. Plan Of Treatment No Information Insurance Providers Payer Name Payer Address Payer Phone Subscriber Number Group Number Insured Name Patient Relationship to Insured Coverage Start Date Coverage End Date MEDICARE [address] Part B Claims and Claims ADR [place] EMIGDIO Gir[place] [phone] [id number] NATALIE GIVENS Self - patient is the insured [address] [employer] [facility] [address] [place] [place] [id number] NATALIE GIVENS Self - patient is the insured 3 Medical (General) History Medical History History ICD Code rheumatoid arthritis Colonoscopy- 2010 colon cancer-situ Surgical History Surgery Date(Month/Year) tonsillectomy section
--- OUTSIDE RECORDS SUMMARY | 2025-02-22 10:18 | XMS_ITS | Encounter Summary ---
Author Organization [facility] Address [address] [place] [address] Care Team Providers Care Campus President Name Role Phone Miles Beavers MD Primary Care Provider + [phone] Encounter Details Date Type Department Care Team (Latest Contact Info) Description 01/09/2025 Travel Social History Tobacco Use Types Packs/Day Years Used Date Smoking Tobacco: Former Cigarettes 1 58.5 0 07/06/1965 - 12/18/2001 Smokeless Tobacco: Never Alcohol Use Standard Drinks/Week Comments Yes 7 (1 standard drink = 0.6 oz pur e alcohol) 1 glass of wine daily [facility] Utilities Answer Date Recorded In the past 12 months has [employer], gas, oil, or water company threatened [...] and heating? Not hard at all 01/20/2024 [facility] of Occupat ional Health - Occupational Stress [...] GED or equivalent No 01/20/2024 Preferred Language Belarusian 01/20/2024 PHQ-2 Answer Date Recorded Retired PHQ-9: [...] Info) Description 04/05/2025 11:45 AM EDT Appointment [facility] [address] [place] [address] 04/19/2025 11:45 AM EDT Office Visit [facility] PULMONARY & CRITICAL CARE MEDICINE [address] [place] [address] Dinesh Miguel MD [address] [place] [address] 06/12/2025 1:00 PM EST Office Visit [facility] RHEUMATOLOGY [address] [address] Jewel Gibbs MD [address] [address] documented as of this encounter Visit Diagnoses Not on filedocumented in this encounter Additional Health Concerns Infection Onset Date Last Indicated Resolved Time Tuberculosis (rule out) 01/27/2024 01/27/2024 documented as of this encounter Care Teams Campus President Relationship Specialty Start Date End Date Miles Beavers MD [address] [facility] [address] [facility] [address] [place] [address] PCP - General Family Medicine 12/10/23 documented as of this encounter
--- OUTSIDE RECORDS SUMMARY | 2025-02-22 10:18 | XMS_ITS | Encounter Summary ---
Author Organization [facility] Address [address] [place] [address] Care Team Providers Care Licensing Court Magistrate Name Role Phone Miles Beavers MD Primary Care Provider + [phone] Encounter Details Date Type Department Care Team (Late st Contact Info) Description 01/11/2025 Results Follow-Up [facility] RHEUMATOLOGY [address] [address] Jewel Gibbs MD [address] [phone] Social History Tobacco Use Types Packs/Day Years Used Date Smoking Tobacco: Former Cigarettes 1 58.5 0 07/06/1965 - 12/18/2001 Smokeless Tobacco: Never Alcohol Use Standard Drinks/Week Comments Yes 7 (1 standard drink = 0.6 oz pur e alcohol) 1 glass of wine daily [facility] Utilities Answer Date Recorded In the past 12 months has [employer], gas, oil, or water [employer] threatened to shut off services in your [...] and heating? Not hard at all 01/20/2024 [facility] of Occupat ional Health - Occupational Stress [...] GED or equivalent No 01/20/2024 Preferred Language Australian 01/20/2024 PHQ-2 Answer Date Recorded Retired PHQ-9: [...] Info) Description 04/05/2025 11:45 AM EDT Appointment [facility] AT [address] [phone] 04/19/2025 11:45 AM EDT Office Visit [facility] PULMON[facility] & CRITICAL CARE MEDICINE [address] [facility] [place] [phone] Dinesh Miguel MD [address] [place] [address] 06/12/2025 1:00 PM EST Office Visit [facility] RHEUMATOLOGY [address] [address] Jewel Gibbs MD [address] [address] documented as of this encounter Visit Diagnoses Not on filedocumented in this encounter Additional Health Concerns Infection Onset Date Last Indicated Resolved Time Tuberculosis (rule out) 01/27/2024 01/27/2024 documented as of this encounter Care Teams Licensing Court Magistrate Relationship Specialty Start Date End Date Miles Beavers MD 12[address] [facility] [address] [facility] [address] [place] [address] PCP - General Family Medicine 12/10/23 documented as of this encounter
--- OUTSIDE RECORDS SUMMARY | 2025-02-22 10:18 | XMS_ITS | Patient Health Record ---
Author Organization [facility] Address [address] [place] [id number] Care Team Providers Care Nail Setter Name Role Phone Miriam MARIE, [facility] Primary Care Provider Oleg Johnson MD, [facility] Unavailable [phone] Allergies No Known Allergies Reason For Referral No Information Medications Medication SIG (Take, Route, Frequency, Duration) Notes Start Date End Date Status Methotrexate - as directed inj once a week Active Gabapentin 300 MG 1 tablet Orally Once a day; Duration: 30 day(s) Active Calcium Citrate + D Active ZyrTEC Allergy 10 MG 1 tablet Orally Onc e a day; Duration: 30 day(s) Active Rheumate Active Remicade 100 MG 300MG Intravenous q 5 weeks Active Albuterol Sulfate 2.5 MG/0.5ML as directed Inhalation Activ e Azelastine-Fluticasone 137-50 MCG/ACT 1 spray in each nostril Nasally Twice a day; Duration: 30 day(s) Active prednisoLONE Acetate 1 % 1 drop into aff ected eye Ophthalmic Twice a day Active Ketorolac Tromethamine 0.5 % 1 drop into affected eye as needed Ophthalmic Four times a day Active Rosuvastatin Calcium 5 MG 1 tablet Orall y Once a day; Duration: 30 day(s) Active Famotidine 20 MG 1 tablet at bedtime as needed Orally Once a day; Duration: 30 day(s) Active Omeprazole 20 MG 1 capsule Orally Onc e a day; Duration: 30 day(s) Active Midodrine HCl 5 MG TAKE 1 TABLET BY RADHA TH THREE TIMES A DAY; Duration: 90 Active Social History Tobacco Use: Social History Observation Description Date Details (start date - stop date) Former Smoker NA - NA Tobacco Use/Smoking Question Answer Notes Are you a former smoker Alcohol Screen Question Answer Notes Did you have a drink contain ing alcohol in the past year? Yes How often did you have a dri nk containing alcohol in the past year? 4 or more times a week (4 points) How many drinks did you have on a typical day when you were drinking in the past year? 1 or 2 drinks (0 point) How often did you have 6 or more drinks on one occasion in the past year? Never (0 point) Interpretation Positive Problems Problem Type SNOMED Code ICD Code Onset Dates Problem Status W/U Status Risk Notes Problem Mitral valve disorder (16250986) Nonrheumatic mitral (valve) insufficiency (I34.0) Active confirmed Problem Dizziness and giddiness (516776820) Dizziness and giddiness (R42) Active confirmed Problem Shortness of breath (023876182) Shortness of breath (R06.02) Active confirmed Problem Tricuspid valve disorder, non-rheumatic (778820041) Nonrheumatic tricuspid (valve) insufficiency (I36.1) Active confirmed Problem Aortic valve disorder (5245093) Nonrheumatic aortic (valve) insufficiency (I35.1) Active confirmed Problem Peripheral vascular disease (845354446) Peripheral vascular disease, unspecified (I73.9) Active confirmed Problem Angina pectoris (372433788) Angina pectoris (I20.9) Active confirmed Problem Coronary artery disease (50808609) CAD (coronary artery disease) (I25.10) Active confirmed Problem Preoperative cardiovascular examination (063080567) Encounter for pre-operative cardiovascular clearance (Z01.810) Active confirmed Problem Disorder of carotid artery (disorder) (968030627) Carotid artery disease, unspecified laterality (I77.9) Active confirmed Problem COPD - Chronic obstructive pulmonary disease (70497009) Chronic obstructive pulmonary disease, unspecified COPD type (J44.9) Active confirmed Problem Angina pectoris (117257811) Angina Pectoris (I20.8) Active confirmed Problem Carotid artery disease (653091185) Carotid artery disease (I65.23) Active confirmed Problem Peripheral vascular disease (478528801) Peripheral vascular disease (I70.213) Active confirmed Plan Of Treatment Pending Test Test Name Order Date Echocardiogram 11/10/2016 Echocardiogram 03/09/2018 Echocardiogram 03/21/2019 Echocardiogram 03/12/2021 Echocardiogram 04/22/2023 Carotid Ultrasound 03/24/2022 Carotid Ultrasound 03/31/2016 Carotid Ultrasound 04/28/2016 Ultrasound : Artery Doppler Low Ext Bila t 03/09/2018 Ultrasound : Artery Doppler Low Ext Bila t 03/21/2019 Ultrasound : Artery Doppler Low Ext Bila t 09/22/2022 Ultrasound : Artery Doppler Low Ext Bila t 11/27/2022 Ultrasound : Carotid Doppler Bilateral 1 08/02/2022 Holter 03/03/2023 Holter 11/10/2016 Left Heart Catheterization 03/31/2016 Event Monitor 30 Days 11/27/2022 Excercise Nuclear Stress Test 09/22/2022 Excercise Nuclear Stress Test 05/12/2017 ECHOCARDIOGRAM 03/24/2022 HOLTER MONITOR 24 HOUR 09/27/2018 HOLTER MONITOR 24 HOUR 03/31/2016 HOLTER MONITOR 24 HOUR 03/03/2023 HOLTER MONITOR 03/09/2018 Insurance Providers Payer Name Payer Address Payer Phone Subscriber Number Group Number Insured Name Patient Relationship to Insured Coverage Start Date Coverage End Date [place] [address] [facility] [place] [address] [id number] Mimi Givens Self - patient is the insured [facility] [id number] AleidaMimi barreto Self - patient is the insured Medical (General) History Medical History History ICD Code CAD non obstructive, mild bridging 04/24 16 Carotid Artery disease- Mild 06/2022 Rheumatoid arthritis lung nodule s /p biopsy - benign COPD- follows with Dr. Gibbs GERD Cervical spine radiculopathy s/p spine s urgery 11/2016 and 07/2021 Borderline blood pressures Event Monitor - SR, Transient Vent [place] 01/2021 Echo: EF Normal, I DD, Mild AR TR Stress test negative 11/2022 Event Monitor: SR, PVCs PSVT 12/2022 PVD Moderate; Small Vessel Disease 02/22 23 Holter: SR, PVCs 04/2023 Surgical History Surgery Date(Month/Year) section 3x tonsillectomy Hospitalization History Reason Date(Month/Year)
--- OUTSIDE RECORDS SUMMARY | 2025-02-22 10:19 | XMS_ITS | Patient Health Record ---
Author Organization [facility] Address [address] [place] [address] Care Team Providers Care Packaging Assembler Name Role Phone Charly Pineda Primary Care Provider Juniro Ko Unavailable [phone] Allergies No Known Allergies Reason For Referral No Information Medications Medication SIG (Take, Route, Frequency, Duration) Notes Start Date End Date Status Ketorolac Tromethamine 0.5 % Ophthalmic; Duration: 20 Act [place] Rosuvastatin Calcium 5 MG TAKE 1 TABLET BY MOUTH EVERY DAY Oral; Duration: 90 Active Remicade 100 MG Intravenous every 5 weeks/ 300 Active Calcium Citrate-Vitamin D3 315-250 MG-UNIT 2 tablet Orally Twice a day Active Gabapentin 300 MG TAKE ONE CAPSULE BY MOUTH ONE TIME DAILY AT BEDTIME CAUTION ON SEDATION Oral Active Azelastine HCl 137 MCG/SPRAY USE 1 SPRAY IN EACH NOSTRIL AT BEDTIME Nasal Active Rheumate - TAKE ONE CAPSULE BY MOUTH EVERY DAY Oral; Duration: 90 Active Omeprazole 20 MG 1 capsule Orally Onc e a day Active Vitamin D 50 MCG (1999 UT) 1 tablet Oral ly Once a day; Duration: 30 day(s) 02/17/2022 Active Methotrexate 2.5 MG/ML injection weekly/ 0.6 Active prednisoLONE Acetate 1 % INSTILL 1 DROP IN SURGICAL EYE 4 TIMES DAILY POST-OP Ophthalmic; Duration: 37 Active Vitamin K2 40 MCG as directed Orally Active ZyrTEC Allergy 10 MG 1 tablet Orally Onc e a day; Duration: 30 day(s) 02/17/2022 Active Immunizations Vaccine Route Administration Date Status Comme nts TDAP Unknown 12/13/2021 Administered Shingrix Unknown 03/26/2022 Administered Shingrix Unknown 07/10/2022 Administered Seasonal influenza QUAD Unknown 03/22/2020 Administered Seasonal influenza QUAD Unknown 03/28/2021 Administered Seasonal influenza QUAD Unknown 03/20/2022 Administered covid Unknown 05/04/2022 Administered Covid Unknown 08/17/2020 Administered Covid Unknown 11/12/2021 Administered Social History Tobacco Use: Social History Observation Description Date Details (start date - stop date) Former Smoker NA - NA Tobacco Use/Smoking Question Answer Notes Are you a former smoker Section Notes: Smoked about 1 ppd since lat e teens and quit smoking in 2001. ETOH: 1-2 glasses of wine before dinner. , worked in the home. No organic dust exposures Smoked about 1 ppd since lat e teens and quit smoking in 2001. ETOH: 1-2 glasses of wine before dinner. , worked in the home. No organic dust exposures Smoked about 1 ppd since lat e teens and quit smoking in 2001. ETOH: 1-2 glasses of wine before dinner. , worked in the home. No organic dust exposures Smoked about 1 ppd since lat e teens and quit smoking in 2001. ETOH: 1-2 glasses of wine before dinner. , worked in the home. No organic dust exposures Smoked about 1 ppd since lat e teens and quit smoking in 2001. ETOH: 1-2 glasses of wine before dinner. , worked in the home. No organic dust exposures Smoked about 1 ppd since lat e teens and quit smoking in 2001. ETOH: 1-2 glasses of wine before dinner. , worked in the home. No organic dust exposures Smoked about 1 ppd since lat e teens and quit smoking in 2001. ETOH: 1-2 glasses of wine before dinner. , worked in the home. No organic dust exposures Smoked about 1 ppd since lat e teens and quit smoking in 2001. ETOH: 1-2 glasses of wine before dinner. , worked in the home. No organic dust exposures Smoked about 1 ppd since lat e teens and quit smoking in 2001. ETOH: 1-2 glasses of wine before dinner. , worked in the home. No organic dust exposures Smoked about 1 ppd since lat e teens and quit smoking in 2001. ETOH: 1-2 glasses of wine before dinner. , worked in the home. No organic dust exposures Smoked about 1 ppd since lat e teens and quit smoking in 2001. ETOH: 1-2 glasses of wine before dinner. , worked in the home. No organic dust exposures Smoked about 1 ppd since lat e teens and quit smoking in 2001. ETOH: 1-2 glasses of wine before dinner. , worked in the home. No organic dust exposures Smoked about 1 ppd since lat e teens and quit smoking in 2001. ETOH: 1-2 glasses of wine before dinner. , worked in the home. No organic dust exposures Smoked about 1 ppd since lat e teens and quit smoking in 2001. ETOH: 1-2 glasses of wine before dinner. , worked in the home. No organic dust exposures Smoked about 1 ppd since lat e teens and quit smoking in 2001. ETOH: 1-2 glasses of wine before dinner. , worked in the home. No organic dust exposures Problems Problem Type SNOMED Code ICD Code Onset Dates Problem Status W/U Status Risk Notes Problem Information temporarily unavailable Chronic obstructive pulmonary disease, unspecified (J44.9) Active confirmed PFT 2021: FEV1/FVC 70% & FEV2.01, 95%. Some gas trapping but preserved DLCO (71%). Functionally she is dyspneic with exertion but it is not easy to tell if this is related to the COPD or not. Examination is reassuring, no bronchospasm and good air movement. Her CT shows some emphysema but nothing profound. No better with Trelegy so DC'd it. Stable on PRN albuterol. Problem Information temporarily unavailable Rheumatoid arthritis with rheumatoid factor of unspecified site without organ or systems involvement (M05.70) Active confirmed On chronic Remicade with Dr Vera. Problem Information temporarily unavailable Shortness of breath (R06.02) Active confirmed Seems to be stable and multifactorial (Age Emphysema, deconditioning). CTA in the past (-) for PE. Up to date with cardiac screening (stress test 12/2019 was neg). PFT's stable [id number] Problem Information temporarily unavailable Other nonspecific abnormal finding of lung field (R91.8) Active confirmed There are a couple small lower lobe nodular infiltrates, the largest of which is subpleural & in the RLL anteriorly. It is only 1 cm in size. It was PET (-) and Bx (-) in 2016. My suspicion is that it represents indolent infection rather than malignancy. CT scans since seem to point to inflammation evolving to a focal area of bronchiectasis. Last scan just done Aug 2018 was fine and no progression of symptoms since. No plan for followup CT unless symptomatic. Problem Information temporarily unavailable Chronic airway obstruction, not elsewhere classified (J44.9) Active confirmed Problem Information temporarily unavailable Chronic obstructive pulmonary disease, unspecified (J44.9) Active confirmed Plan Of Treatment Pending Test Test Name Order Date Chest X-ray PA and lateral 10/29/2021 PFT COMPLETE 10/29/2021 PFT COMPLETE 01/03/2020 CT ANGIO CHEST PULMONARY ART ERIES WITH OR WITHOUT AND WITH CONTRAST POST PROCESSING 11/13/2016 Insurance Providers Payer Name Payer Address Payer Phone Subscriber Number Group Number Insured Name Patient Relationship to Insured Coverage Start Date Coverage End Date MEDICARE [address] [place] [phone] [id number] Mimi Hobbs Self - [place] [id number] Mimi Hobbs Self - patient is the insured Medical (General) History Medical History History ICD Code Rheumatoid arthritis Reflux Pulmonary nodules COPD Bilateral low bck pain Melanoma Surgical History Surgery Date(Month/Year) Tonsillectomy x 3 Lung bx cervical 5-8 eyelid uplift 2021 Hospitalization History Reason Date(Month/Year) Sun Plant x 1 days Upper cervical spi ne surgery 07/2021
--- OUTSIDE RECORDS SUMMARY | 2025-02-22 10:19 | XMS_ITS | Clinical Summary ---
Author Organization [facility] Address [address] [place] [address] Phone Care Team Providers Care Sales Representative Printing Paper Name Role Phone Viral MARIE, Glenny Gramajo [ ] Conditions or Problems Problem Name Problem Code Onset Date Status Entry Date Provider Comment Standard Description Annotate Acute pulmonary blastomycosi s 714209606 (SNOMED CT) 03/03 Resolved 03/03 Glenny Stratton MD Acute pulmonary blastomycosis Weight loss 500627799 (SNOMED CT) 10/03 Active 10/03 Glenny Stratton MD Abnormal weight loss Alopecia 42255343 (SNOMED CT) 07/25 Active 07/27 Glenny Stratton MD Alopecia Mycobacteriu m avium complex 292478095 (SNOMED CT) 07/25 Active 07/27 Glenny Stratton MD 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 At risk for falls 875899770 (SNOMED CT) 07/25 Active 07/25 Nenita Langford At increased risk for falls Lymphedema bilat legs I89.0 (ICD-10-CM ) 03/16 Active 03/16 Glenny Stratton MD Lymphedema, not elsewhere classified Acute respiratory failure with hypoxia 40098010 (SNOMED CT) 03/03 Active 03/03 Nova Daren Acute respiratory failure Acute pulmonary blastomycosi s 279859767 (SNOMED CT) 03/03 Removed 03/03 Nova Daren 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-CM ) 03/03 Active 03/03 Nova Mercedes Acute pulmonary histoplasmosis capsulati Hypotension, chronic 96621292 (SNOMED CT) 03/03 Active 03/03 Nova Mercedes Chronic hypotension Alkaline phosphatase, elevated 748437321 (SNOMED CT) 03/03 Active 03/03 Nova Mercedes Alkaline phosphatase above reference range Elevation of levels of liver transaminase levels 053955151 (SNOMED CT) 03/03 Active 03/03 Nova Mercedes Elevated level of transaminase and lactic acid dehydrogenase Hyponatremia 29900433 (SNOMED CT) 03/03 Active 03/03 Nova Mercedes Hyponatremia COPD 08435725 (SNOMED CT) 03/03 Active 03/03 Nova Mercedes Chronic obstructive pulmonary disease RA with rheumatoid factor, 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 (ICD-10-CM ) 03/03 Active 03/03 Nova Mercedes Rheumatoid arthritis with rheumatoid factor of multiple sites without organ or systems involvement Medications Medication Instructions Start Date Stop Date Generic Name NDC Provider VORICONAZOLE 200 MG TABS 1 tablet by mouth twice a day TAKE 1 TABLET BY MOUTH 2 TIMES A DAY 01/02 voriconazole [id number] Glenny Stratton MD VORICONAZOLE 200 MG TABS Take 1 tablet by mouth twice a day 01/16 voriconazole 14222077884 Glenny Stratton MD VORICONAZOLE 200 MG TABS 1 tablet by mouth twice a day TAKE 1 TABLET BY MOUTH 2 TIMES A DAY 01/02 voriconazole 73056436204 Glenny Stratton MD FLUDROCORTISONE ACETATE 0.1 MG TABS 0.1 mg = 1 tab, Tab, Oral, Daily, 30 tab, 0 Refill(s), Route to Pharmacy Electronically , [facility], 170, 02/12/24 3:54:00 EDT, Height/Length Dosing, cm, 67.7, 02/12/24 3:54:00 EDT, Weight Dosing, kg 01/02 fludrocortisone 77845319418 Lidia Wilson VORICONAZOLE 200 MG TABS 1 tablet by mouth twice a day TAKE 1 TABLET BY MOUTH 2 TIMES A DAY 01/01 voriconazole 62601434731 Glenny Stratton MD MIDODRINE HCL 5 MG TABS 15 mg = 3 tab, Tab, Oral, TIDAC, 270 tab, 0 Refill(s), Route to Pharmacy Electronically , [facility], 170, 02/12/24 3:54:00 EDT, Height/Length Dosing, cm, 67.7, 02/12/24 3:54:00 EDT, Weight Dosing, kg 10/03 midodrine 93289833454 Guerline Armando VORICONAZOLE 200 MG TABS 1 tablet by mouth twice a day TAKE 1 TABLET BY MOUTH 2 TIMES A DAY 10/13 voriconazole 87779025387 Glenny Stratton MD ROSUVASTATIN CALCIUM 5 MG TABS Take 1 tablet by mouth once a day rosuvastatin 08640617468 Farrah Awan VORICONAZOLE 200 MG TABS 1 tablet by mouth twice a day TAKE 1 TABLET BY MOUTH 2 TIMES A DAY 09/15 voriconazole 80781826898 Glenny Stratton MD VORICONAZOLE 200 MG TABS 1 tablet by mouth twice a day TAKE 1 TABLET BY MOUTH 2 TIMES A DAY 07/24 voriconazole 77831284164 Glenny Stratton MD FLORAJEN3 (PROBIOTIC PRODUCT) CAPS 1 cap, Cap, Oral, QLUNCH, 30 cap, 0 Refill(s), Route to Pharmacy Electronically , [facility], 170, 02/12/24 3:54:00 EDT, Height/Length Dosing, cm, 67.7, 02/12/24 3:54:00 EDT, Weight Dosing, kg 07/25 PROBIOTIC PRODUCT Nenita Primitivo MELATONIN 3 MG TABS 3 mg = 1 tab, Tab, Oral, QHS, 60 tab, 0 Refill(s), Route to Pharmacy Electronically , [facility], 170, 02/12/24 3:54:00 EDT, Height/Length Dosing, cm, 67.7, 02/12/24 3:54:00 EDT, Weight Dosing, kg 07/25 melatonin 69344711654 Nenita Belin BUMETANIDE 0.5 MG TABS 0.5 mg = 1 tab, Oral, Daily, 30 tab, 0 Refill(s), Route to Pharmacy Electronically , [facility], 170, 02/12/24 3:54:00 EDT, Height/Length Dosing, cm, 67.7, 02/12/24 3:54:00 EDT, Weight Dosing, kg 07/25 bumetanide 95296268369 Nenita Belin potassium chloride 10 mEq oral tablet, extended release 30 mEq = 3 tab, Tab-ER, Oral, Daily, 90 tab, 0 Refill(s), Route to Pharmacy Electronically , [facility], 170, 02/12/24 3:54:00 EDT, Height/Length Dosing, cm, 67.7, 02/12/24 3:54:00 EDT, Weight Dosing, kg 07/25 potassium chloride 10 mEq oral tablet, extended release Nenita Belin PEG 3350 17 GM/SCOOP POWD = 1 packet, Powder-Recon, Oral, Daily PRN, 30 packet, 0 Refill(s), Constipation, Route to Pharmacy Electronically , [facility], 170, 02/12/24 3:54:00 EDT, Height/Length Dosing, cm, 67.7, 02/12/24 3:54:00 EDT, Weight Dosing, kg 07/25 polyethylene glycol 3350 90341866065 Nenita Belin acetaminophen 500 mg oral tablet 1 tablet by mouth every four hours as needed 07/25 acetaminophen 500 mg oral tablet Nenita Belin VORICONAZOLE 200 MG TABS 1 tablet by mouth twice a day TAKE 1 TABLET BY MOUTH 2 TIMES A DAY 07/15 voriconazole 80509384108 Glenny Stratton MD VORICONAZOLE 200 MG TABS 1 tablet by mouth twice a day TAKE 1 TABLET BY MOUTH 2 TIMES A DAY 08/18 voriconazole 44183920773 Glenny Stratton MD VORICONAZOLE 200 MG TABS 1 tablet by mouth twice a day TAKE 1 TABLET BY MOUTH 2 TIMES A DAY 08/17 voriconazole 05924753394 Glenny Stratton MD FLORASTOR ADVANCED CAPS Take 2 capsule by mouth twice a day jeremie-enzym -een-ufrn-hdm 52066609162 Glenny Stratton MD VORICONAZOLE 200 MG TABS 200 mg, 1 tab, Tab, Oral, BID, 60 tab, 0 Refill(s), Indication: Blastomycosis, Route to Pharmacy Electronically , [facility], 170, 02/12/24 3:54:00 EDT, Height/Length Dosing, cm, 67.7, 02/12/24 3:54:00 EDT, kg, Weight Dosing 03/16 voriconazole 20102422906 Glenny Stratton MD VORICONAZOLE 200 MG TABS 1 tablet by mouth twice a day TAKE 1 TABLET BY MOUTH 2 TIMES A DAY 08/15 voriconazole 60805710421 Glenny Stratton MD VORICONAZOLE 200 MG TABS 200 mg, 1 tab, Tab, Oral, BID, 60 tab, 0 Refill(s), Indication: Blastomycosis, Route to Pharmacy Electronically , [facility], 170, 02/12/24 3:54:00 EDT, Height/Length Dosing, cm, 67.7, 02/12/24 3:54:00 EDT, kg, Weight Dosing 03/16 voriconazole 24816038043 QIE qieuser potassium chloride 10 mEq oral tablet, extended release 30 mEq = 3 tab, Tab-ER, Oral, Daily, 90 tab, 0 Refill(s), Route to Pharmacy Electronically , [facility], 170, 02/12/24 3:54:00 EDT, Height/Length Dosing, cm, 67.7, 02/12/24 3:54:00 EDT, Weight Dosing, kg 07/25 potassium chloride 10 mEq oral tablet, extended release QIE qieuser PEG 3350 17 GM/SCOOP POWD = 1 packet, Powder-Recon, Oral, Daily PRN, 30 packet, 0 Refill(s), Constipation, Route to Pharmacy Electronically , [facility], 170, 02/12/24 3:54:00 EDT, Height/Length Dosing, cm, 67.7, 02/12/24 3:54:00 EDT, Weight Dosing, kg 07/25 polyethylene glycol 3350 83234803414 QIE qieuser PANTOPRAZOLE SODIUM 40 MG TBEC 40 mg = 1 tab, Tab-DR, Oral, QLUNCH, 30 tab, 0 Refill(s), Route to Pharmacy Electronically , [facility], 170, 02/12/24 3:54:00 EDT, Height/Length Dosing, cm, 67.7, 02/12/24 3:54:00 EDT, Weight Dosing, kg pantoprazole 74092497407 QIE qieuser MIDODRINE HCL 5 MG TABS 15 mg = 3 tab, Tab, Oral, TIDAC, 270 tab, 0 Refill(s), Route to Pharmacy Electronically , [facility], [address], 02/12/24 3:54:00 EDT, Height/Length Dosing, cm, 67.7, 02/12/24 3:54:00 EDT, Weight Dosing, kg 10/03 midodrine 05035321129 QIE qieuser MELATONIN 3 MG TABS 3 mg = 1 tab, Tab, Oral, QHS, 60 tab, 0 Refill(s), Route to Pharmacy Electronically , [facility], 170, 02/12/24 3:54:00 EDT, Height/Length Dosing, cm, 67.7, 02/12/24 3:54:00 EDT, Weight Dosing, kg 07/25 melatonin 71601466572 QIE qieuser MAGNESIUM OXIDE 400 MG TABS 400 mg = 1 tab, Tab, Oral, BID, 60 tab, 0 Refill(s), Route to Pharmacy Electronically , [facility], 170, 02/12/24 3:54:00 EDT, Height/Length Dosing, cm, 67.7, 02/12/24 3:54:00 EDT, Weight Dosing, kg magnesium oxide 19332807406 QIE qieuser GABAPENTIN 300 MG CAPS 300 mg, = 1 cap, Indication: Neuropathic Pain - Spinal Cap, Oral, QHS, 30 cap, 0 Refill(s), Route to Pharmacy Electronically , [facility], 170, 02/12/24 3:54:00 EDT, Height/Length Dosing, cm, 67.7, 02/12/24 3:54:00 EDT, Weight Dosing, kg gabapentin 12022865748 QIE qieuser FLUDROCORTISONE ACETATE 0.1 MG TABS 0.1 mg = 1 tab, Tab, Oral, Daily, 30 tab, 0 Refill(s), Route to Pharmacy Electronically , [facility], 170, 02/12/24 3:54:00 EDT, Height/Length Dosing, cm, 67.7, 02/12/24 3:54:00 EDT, Weight Dosing, kg 6/30 fludrocortisone 23270191761 QIE qieuser FLORAJEN3 (PROBIOTIC PRODUCT) CAPS 1 cap, Cap, Oral, QLUNCH, 30 cap, 0 Refill(s), Route to Pharmacy Electronically , [facility], 170, 02/12/24 3:54:00 EDT, Height/Length Dosing, cm, 67.7, 02/12/24 3:54:00 EDT, Weight Dosing, kg 07/25 PROBIOTIC PRODUCT QIE qieuser BUMETANIDE 0.5 MG TABS 0.5 mg = 1 tab, Oral, Daily, 30 tab, 0 Refill(s), Route to Pharmacy Electronically , [facility], 170, 02/12/24 3:54:00 EDT, Height/Length Dosing, cm, 67.7, 02/12/24 3:54:00 EDT, Weight Dosing, kg 0 01/03 bumetanide 93896753719 QIE qieuser acetaminophen 500 mg oral tablet 500 mg = 1 tab, Tab, Oral, q4hr PRN, 0 Refill(s), PAIN (Scale 1-6) 07/25 acetaminophen 500 mg oral tablet QIE qieuser Medications Administered No information available. Allergies, Adverse Reactions, Alerts Allergy Name Reaction Description Start Date Severity Statu s Provider TAPE Moderate Active Nenita Larson in Results Date Name Value Unit Range Flag Description Clinical Lists Update: Prelo ad VAPE_USE Never Tobacco smok ing status Lab Report: C-REACTIVE PROTE IN CRP <0.30 mg/dL 0.00-0.50 C reactive protein [Mass/volume] in Serum or Plasma Lab Report: CBC WITH AUTO DI FFERENTIAL IMMATUREGRAN 0.10 10*3/MM3 0.00-0.05 H Immature granulocytes [#/volume] in Blood BASO# 0.06 10*3/mm3 0.00-0.20 Basophils [#/vol ume] in Blood EOS ABSLT 0.56 10*3/uL 0.00-0.40 H Eosinophi ls [#/volume] in Blood MONOSCT AUTO 0.67 10*3/uL 0.10-0.90 Monocy juana [#/volume] in Blood by Automated count LYMPHCT AUTO 1.67 10*3/mm3 0.70-3.10 Lymph ocytes [#/volume] in Blood by Automated count ABS NEUTROPH 5.48 10*3/uL 1.70-7.00 Neutro phils [#/volume] in Blood IMM GRANU % 1.2 % 0.0-0.5 H Immature granulocytes/100 leukocytes in Blood % EOS AUTO 6.6 % 0.3-6.2 H Eosinophil s/100 leukocytes in Blood by Automated count MONOCYTE % 7.8 % 5.0-12.0 Monocytes /100 leukocytes in Blood by Automated count LYMPHOCY BF 19.6 % 19.6-45.3 lymphoc ytes as percent of body fluid leukocytes NEUTROP BF 64.1 % 42.7-76.0 Neutroph ils/100 leukocytes in Body fluid PLATELETS 249 10*3/mm3 140-450 Platelets [#/volume] in Blood by Automated count RDW_ 14.0 12.3-15.4 RDW, no uni ts MCHC 32.4 G/DL 31.5-35.7 MCHC [Mass/ volume] by Automated count MCH 30.0 pg 26.6-33.0 MCH [Entiti c mass] by Automated count MCV 92.6 fL 79.0-97.0 MCV [Entiti c volume] by Automated count HCT 37.4 % 34.0-46.6 Hematocrit [Volume Fraction] of Blood by Automated count HGB 12.1 g/dL 12.0-15.9 Hemoglobin [Mass/volume] in Blood RBC 4.04 10*6/mm3 3.77-5.28 Erythrocyt es [#/volume] in Blood by Automated count WBC 8.54 10*3/mm3 3.40-10.8 0 Leukocytes [#/volume] in Blood by Automated count Lab Report: COMPREHENSIVE ME TABOLIC PANEL ANIONGAP 8.0 mmol/L 5.0-15.0 anion gap, serum BUN/CREAT 15.3 7.0-25.0 Urea nitrogen/Creatinine [Mass Ratio] in Serum or Plasma BILI TOTAL 0.3 mg/dL 0.0-1.2 Bilirubin. total [Mass/volume] in Serum or Plasma ALK PHOS 84 U/L 39-117 Alkaline tia sphatase [Enzymatic activity/volume] in Blood SGOT (AST) 21 U/L 1-32 Aspartate aminotransferase [Enzymatic activity/volume] in Serum or Plasma SGPT (ALT) 6 U/L 1-33 Alanine aminotransferase [Enzymatic activity/volume] in Serum or Plasma ALBUMIN 3.9 g/dL 3.5-5.2 Albumin [Mass/volume] in Serum or Plasma PROTEIN, TOT 7.7 g/dL 6.0-8.5 Protein [Mass/volume] in Serum or Plasma CALCIUM 9.5 mg/dL 8.6-10.5 Calcium [Moles/volume] in Serum or Plasma CO2 26.0 mmol/L 22.0-29.0 Carbon diox steven, total [Moles/volume] in Venous blood CHLORIDE 105 mmol/L 98-107 Chloride [Moles/volume] in Serum or Plasma POTASSIUM 4.2 mmol/L 3.5-5.2 Potassium [Moles/volume] in Serum or Plasma SODIUM 139 mmol/L 136-145 Sodium [Moles/volume] in Serum or Plasma CREATININE 0.85 mg/dL 0.57-1.00 Creatini ne [Mass/volume] in Serum or Plasma BUN 13 mg/dL 8-23 Urea nitrogen [Mass/volume] in Serum or Plasma GLUCOSE SER 96 mg/dL 65-99 Glucose [Mass/volume] in Serum or Plasma Office Visit: Office Visit: Room 10 FALLRSKASSES yes Fall ris k assessment Lab Report: VORICONAZOLE, SE RUM/PLASMA [id number]-GE-[id number] 3.3 ug/mL GE use only - for LinkLogic import when terms are not otherwise specified Office Visit: Office Visit: 9 ORALTOBACUSE Never Tobacco smoking status SMOK STATUS Former smoker Tobacco smoking status MEDS REVIEW Done Documenta tion of current medications (procedure) Plan of Care Type Date Detail Appointment 11:30 AM Glenny Stratton MD, [address], [address], [place], [address], Referral CT Chest without contrast Pending order Voriconazole Lev el Pending order CBC with Differe ntial Pending order CMP Pending order Other Pending order CBC with Differe ntial Pending order CMP Pending order C- reactive prot ein Pending order Fungitell, serum (1-3) D-Glucan Assay Pending order Histoplasmosis U rinary AG Pending order Blastomyces Urin haily Antigen Procedures Code Procedure Name Date Entry Date CPT-21210 Voriconazole Level 1 [id number] CBC with Differential 2023 CPT-11932 CMP CPT-LAB Other [id number] CBC with Differential 2023 CPT-19738 CMP CPT-66618 C- reactive protein 18353 Fungitell, serum (1-3) D-Glucan Assay 10/12/10 CPT-67831 Histoplasmosis Urinary AG 29/03/11 CPT-11885 Blastomyces Urinary Antigen CPT-00542 CT Chest without contrast 29/03/11 Vital Signs Date Name Value Unit Description [...] M Immunizations No information available. Advance Directives Directive Description Start Date LIVING WILL ON FILE
--- OUTSIDE RECORDS SUMMARY | 2025-02-22 10:19 | XMS_ITS | Patient Health Record ---
Author Organization [facility] Address [address] [place] [id number] Care Team Providers Care Senior Search Marketing Analyst Name Role Phone Miriam MARIE, [facility] Primary Care Provider Dr Delbert Wilson Unavailable [phone] ALLERGIES No Known Allergies REASON FOR REFERRAL No Information MEDICATIONS Medication SIG (Take, Route, Frequency, Duration) Notes Start Date End Date Status Albuterol Sulfate 108 (90 Base) MCG/ACT 2 puff(s) inhaled every 6 hours Active Rosuvastatin Calcium 5 MG 1 tab(s) orally once a day Active Rheumate - 1 cap(s) orally once a day Active Xatmep 2.5 MG/ML as directed subcutaneously once a week Active Ketorolac Tromethamine 0.4 % 1 gtt in each affected eye 2 times a day Active prednisoLONE Acetate 1 % 1 gtt in each affected eye 4 times a day Active Omeprazole Magnesium 20 MG 1 tab(s) orally once a day Active Azelastine HCl 137 MCG/SPRAY 2 spray(s) intranasally 2 times a day Active VARIOUS OTC VITAMINS calcium citrate + D3 *Please review for potential replacement for e-prescription and drug interaction check* Active Allergy Relief 10 MG 1 tab(s) orally once a day Active Trelegy Ellipta 100-62.5-25 MCG/ACT 1 puff(s) inhaled once a day Active Gabapentin 300 MG 1 cap(s) orally once a day Active Famotidine 20 MG 1 tab(s) orally once every other day Active Vitamin D3 Maximum Strength 125 MCG (5000 UT) 1 tab(s) orally once a day Active Remicade 100 MG as directed intravenously every 5 weeks Active SOCIAL HISTORY Tobacco Use: Social History Observation Description Date Details (start date - stop date) Former Smoker NA - NA Sex Assigned At : Social History Observation Description Sex Assigned At Unknown smoking Question Answer Notes Are you a: former smoker How long has it been since you last smoked? > 10 years Alcohol Screen Question Answer Notes Did you have a drink contain ing alcohol in the past year? Yes How often did you have a dri nk containing alcohol in the past year? Two to four times a month (2 points) How many drinks did you have on a typical day when you were drinking in the past year? 1 or 2 (0 points) How often did you have six o r more drinks on one occasion in the past year? Never (0 points) Points 2 Interpretation Negative PROBLEMS Problem Type ICD Code Onset Dates Problem Status W/U Status Risk SNOMED Code Notes Problem Orthostatic hypotension (I95.1) Active confirmed Orthostatic hypotension (86907538) doing well, I see no ongoing role in her care for a neurologist as PCP and cardio have the situation well in hand PLAN OF TREATMENT No Information Insurance Providers Payer Name Payer Address Payer Phone Subscriber Number Group Number Insured Name Patient Relationship to Insured Coverage Start Date Coverage End Date Medicare Part [place] [address] [address] [place] [address] [id number] Mimi Hobbs Self - patient is the [place] 1 [facility] [place] [place] [address] [id number] Mimi Hobbs Self - patient is the insured 1 MEDICAL (GENERAL) HISTORY Medical History History ICD Code Rheumatoid arthritis Colon cancer Melanoma Hyperlipidemia Surgical History Surgery Date(Month/Year) Tonsillectomy/adenoidectomy C section x 3 Lung biopsy Cataract surgery Retina surgery C Spine surgery x 2
[2025-02-22 10:52] LABS: Hematocrit 42.9 % (37.0-47.0); Hemoglobin 14.0 g/dL (12.2-16.2); Immature Granulocytes % 0.3 %; Mean Corpuscular HGB Conc 32.6 g/dL (31.8-35.4); Mean Corpuscular Hemoglobin 31.3 pg (27.0-31.2); Mean Corpuscular Volume 95.8 fl (81-99); Nucleated Red Blood Cells % 0 %; Platelet Count 215 K/mm3 (142-424); Red Blood Count 4.48 M/mm3 (4.20-5.40); Red Cell Distribution Width-SD 49.6 fL; White Blood Count 8.7 K/mm3 (4.8-10.8)
[2025-02-22 11:32] LABS: Alanine Aminotransferase 16 U/L (12-78); Albumin Level 4.5 g/dl (3.5-5.0); Albumin/Globulin Ratio 1.5 (1.1-1.8); Alkaline Phosphatase 75 U/L (38-126); Anion Gap 14.4 mEq/L (5-15); Aspartate Amino Transferase 33 U/L (14-36); Bilirubin,Total 0.5 mg/dl (0.2-1.3); Blood Urea Nitrogen 20 mg/dl (7-17); Calcium 9.8 mg/dl (8.4-10.2); Carbon Dioxide 25 mmol/L (22.0-30.0); Chloride 107 mmol/L (98-107); Cholesterol 195 mg/dl (140-200); Creatinine,Serum 0.90 mg/dl (0.52-1.04); Estimated Glomerular Filt Rate 61 ml/min (>60); GFR (African American) 73 ML/MIN (>60); Globulin 3.1 g/dL (1.3-3.2); Glucose 77 mg/dl (74-100); Potassium 4.4 mmoL/L (3.5-5.1); Sodium 142 mmol/L (136-145); Total Protein,Serum 7.6 g/dl (6.3-8.2); Triglycerides 80 mg/dl (30-150)
[2025-02-22 11:33] LABS: C-Reactive Protein 1.1 mg/L (0-4)
[2025-02-22 11:39] LABS: HDL Cholesterol 105 mg/dl (40-60)
[2025-02-22 12:02] LABS: Thyroid Stimulating Hormone 3.66 uIU/mL (0.465-4.68)
== END 2025-02-22 23:59 | disposition home or self-care (01) ==
LOC: LAB 09:58
PROVIDERS: PCP Family Medicine; Visit Provider Internal Medicine
DX: E78.00 Pure hypercholesterolemia, unspecified (principal); M05.79 Rheumatoid arthritis with rheumatoid factor of multiple sites without organ or systems involvement; R60.0 Localized edema; Z79.899 Other long term (current) drug therapy
CPT/HCPCS: 36415; 80053; 80061; 84443; 85025; 85651; 86140

== ENCOUNTER 2025-06-21 13:32 | Outpatient (CLI) | payer MEDICARE, OTHER, SELFPAY ==
--- OUTSIDE RECORDS SUMMARY | 2024-02-08 05:00 | XMS_ITS ---
Author Organization [facility] Address [address] [facility] [address] [place] [id number] Care Team Providers Care Physical Fitness Teacher Name Role Phone Miles Beavers Unavailable [phone] Allergies No Known Allergies REASON FOR VISIT 6 months Encounters Encounter Location Date Provider Diagnosis [facility] [address] [place] [id number] 02/08/2024 Miles Beavers Plan Of Treatment Next Appt Details Provider Name:Miles cormier, 06/21/2025 02:32:00 PM, [address], [address], [place], [place], [id number], Provider Name:Miles cormier, 06/23/2025 11:00:00 AM, [address], [address], [place], [place], [id number], Progress Notes * CHIDI GIVENSLAURENCEOB:1945 (79 yo F)Acc No.[id number]:02/08/2024 Progress Notes Patient: NATALIE SAHU Provider: Singh Beavers M.D. :1945 A ge:78 Y S ex:Female Date:02/08/2024 Address:[facility] [id number] Subjective: * Chief Complaints: * 1 . 6 months. * ROS: D ERMATOLOGY: no R sari. n o H mehul. G ASTROENTEROLOGY: no N ausea. n o V omiting. U ROLOGY: no D ifficulty urinating. n o B lood in urine. * Medical History: A sthma, Hyperlipidemia, Allergic Rhinitis, Rheumatoid Arthritis, Melanoma, Hypotension, Esophageal reflux. * Surgical History: T onsilectomy 1949, 03/10/1967, 10/21/1968, 01/02/1971, Melanoma Removal 2022. * Hospitalization/Major Diagno stic Procedure: D enies Past Hospitalization. * Family History: F ather: diagnosed with Cancer. M aternal aunt: diagnosed with Cancer. 1 brother(s) , 1 sister(s) . 1 son(s) , 2 daughter(s) . . * Social History: C URRENT TOBACCO USE: No . C affeine: yes, frequency: 3 times daily. Alcohol: yes, 4 Times Weekly. * Allergies: N .K.D.A. Objective: * Vitals: Assessment: Plan: * Treatment: * Images: Billing Information: * Visit Code: * Procedure Codes: * Electronic signature of Alisha Beavers MD on 06/21/2025 at 02:51 PM EST Sign off status: Pending * Provider: Singh Beavers M.D. Date: 0 02/08/2024 Generated for Kingston calderon/Nik/Taryn on: 08/22/2024 02:51 PM EST
--- OUTSIDE RECORDS SUMMARY | 2024-02-11 05:30 | XMS_ITS ---
Author Organization [facility] Address [address] [place] [id number] Care Team Providers Care Development Engineer Name Role Phone Miles Beavers Unavailable [phone] REASON FOR VISIT follow up [facility] Encounters Encounter Location Date Provider Diagnosis [facility] [address] [place], [place] [id number] 02/11/2024 Miles Beavers Plan Of Treatment Next Appt Details Provider Name:Miles cormier, 06/21/2025 02:32:00 PM, [address], [address], [place], [place], [id number], Provider Name:Miles cormier, 06/23/2025 11:00:00 AM, [address], [address], [place], [place], [id number], Progress Notes * CHIDI GIVENSLAURENCEOB:1945 (79 yo F)Acc No.[id number]:02/11/2024 Progress Notes Patient: NATALIE SAHU Provider: Singh Beavers M.D. :1945 A ge:78 Y S ex:Female Date:02/11/2024 Address:[facility] [place] Subjective: * Chief Complaints: * 1 . [facility]. * Medical History: Objective: * Vitals: Assessment: Plan: * Treatment: * Images: Billing Information: * Visit Code: * Procedure Codes: * Electronic signature of Alisha Beavers MD on 06/21/2025 at 02:51 PM EST Sign off status: Pending * Provider: Singh Beavers M.D. Date: 0 02/11/2024 Generated for [place] calderon/Nik/Taryn on: 1 08/22/2024 02:51 PM EST
--- OUTSIDE RECORDS SUMMARY | 2024-03-02 08:45 | XMS_ITS ---
[facility] [address] [place] [id number] Care Team Providers Care Senior Counsel Name Role Phone Miles Beavers Unavailable [phone] Allergies No Known Allergies Results Component Value Reference Range Notes CBC Venipuncture (in house) Reviewed date:03/03/2024 09:20:03 AM Interpretation:hgb 11.2, hct 34 Performing Lab: Notes/Report: hgb 11.2, hct 34 wbc 8.3 3.5 - 10 lymph 17.2% 15 - 50 mid 4.9% 2 - 15 gran 77.9% 35 - 80 rbc 3.53 3.5 - 5.5 hgb 11.2 11.5 - 16.5 hct 34.0 35 - 55 mcv 96.2 75 - 100 mch 31.8 25 - 35 mchc 33.1 31 - 38 platlet 303 100 - 400 P-Basic Metabolic Panel (BMP ) Reviewed date:03/03/2024 09:20:02 AM Interpretation:gluc 168, Cr 1.01, gfr 57 Performing Lab: Notes/Report: Test performed by [facility] , [address], [place] [address] Denis Varner MD, Signal System Testing Maintainer CLIA: [id number] Sodium 137 135-145 mmol/L Potassium 5.2 3.5-5.3 mmol/L Chloride 105 97-108 mmol/L CO2 26 22-32 mmol/L Glucose 168 65-99 mg/dL BUN 16 8-23 mg/dL Creatinine 1.01 0.50-1.00 mg/dL Calcium 9.4 8.6-10.4 mg/dL eGFR by Creatinine 57 >59 mL/min/1.73m2 Reason For Referral Reason [facility] Diagnosis 1 Lymphedema (I89.0) Referral Organization [facility] Referring Provider First Name Miles Referring Provider Last Name Ruthann Referring Provider Speciality Family Ash agarwal Referred Provider Physical Therapy, . Referred Provider Specialty Physical The rapist General Notes Neela Alfonso 03/02/20 24 2:30:57 PM > faxed referral to [facility] PT Referral Priority Routine REASON FOR VISIT f/u from [facility] Medications Medication SIG (Take, Route, Frequency, Duration) Notes Start Date End Date Status Gabapentin 300 MG 1 capsule Orally Onc e a day; Duration: 90 days 10/28/2023 Active Methotrexate Sodium 2.5 MG as directed O rally 6 Pills Weekly Not-Taking Azelastine-Fluticasone 137-50 MCG/ACT 1 spray in each nostril Nasally Twice a day; Duration: 30 day(s) Not-Taking ZyrTEC 10 MG 1 tablet Orally Once a day; Duration: 30 day(s) Not-Taking Rosuvastatin Calcium 5 MG 1 tablet Orall y Once a day; Duration: 90 days Not-Takin g Midodrine HCl 5 MG 3 tablets Orally onc e daily Active Magnesium 400 MG 1 tablet with a meal Orally Once a day Active Rheumate - as directed Orally Not-Taking Remicade 100 MG as directed Intravenous Every 5 Weeks Not-Taking Florajen3 - as directed Orally Active Voriconazole 200 MG 1 tablet 1 hour befo re or 1 hour after meals Orally every 12 hrs Active Fludrocortisone Acetate 0.1 MG 1 tablet Orally Once a day; Duration: 30 day(s) Active Pantoprazole Sodium 40 MG 1 tablet Orall y Once a day; Duration: 30 day(s) Active Melatonin 3 MG 1 tablet at bedtime as needed Orally Once a day; Duration: 30 day(s) Active Problems Problem Type SNOMED Code ICD Code Onset Dates Problem Status W/U Status Risk Notes Problem Histoplasmosis (85673793) 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 Problem Lymphedema (48585838) Lymphedema (I89.0) Active confirmed Vital Signs Blood pressure systolic 86 mm Hg 03/02/20 24 Blood pressure diastolic 40 mm Hg 024 Heart Rate 109 /min 03/02/2024 Height 67 in 03/02/2024 Weight 136.4 lbs 03/02/2024 BMI 21.36 kg/m2 03/02/2024 Encounters Encounter Location Date Provider Diagnosis [facility] [address] [place] [address] [address] [facility] [address] [place] [id number] 03/02/2024 Miles Beavers Disseminated histoplasmosis B39.9 ; Idiopathic hypotension I95.0 and Lymphedema I89.0 Assessments Encounter Date Diagnosis (ICD Code) Assessment Notes Treatment Notes Treatment Clinical Notes Section Notes 03/02/2024 Disseminated histoplasmosis (ICD-10 - B39.9) Patient to keep f/u appt. with infectious disease in [place] 03/02/2024 Idiopathic hypotension (ICD-10 - I95.0) 03/02/2024 Lymphedema (ICD-10 - I89.0) Plan Of Treatment Medication Medication Name Sig Start Date Stop Date Notes Klor-Con 10 10 MEQ 1 tablet with food Orally Twice a day Bumetanide 0.5 MG 1 tablet Orally Once a day Treatment Notes Assessment Notes Disseminated histoplasmosis Patient to ee f/u appt. with infectious disease in [place] Referrals Referral Date Details 03/02/2024 03/02/2024, [facility], . P hysical Therapy Next Appt Details Follow Up: 4 Weeks, Reason: Provider Name:Miles cormier, 06/21/2025 02:32:00 PM, [address] [place] [address], [address], [place], [phone], Provider Name:Miles cormier, 06/23/2025 11:00:00 AM, [address] [place] [address], [address], [place], [id number], Progress Notes * SAUL GIVENSOB:1945 (79 yo F)Acc No.[id number]:03/02/2024 Progress Notes Patient: NATALIE SAHU Provider: Singh Beavers M.D. :1945 A ge:78 Y S ex:Female Date:03/02/2024 Address:[address] [place] [address] [id number] Subjective: * Chief Complaints: * 1 . f/u from [facility]. * HPI: H PI: 78 year old female presents with c/o Here for follow up on:?02/03- [facility] admit. Pt states that she is feeling much better since d/c and does not have any concerns today. * ROS: D ERMATOLOGY: no R sari. n o H mehul. G ASTROENTEROLOGY: no N ausea. n o V omiting. U ROLOGY: no D ifficulty urinating. n o B lood in urine. * Medical History: A sthma, Hyperlipidemia, Allergic Rhinitis, Rheumatoid Arthritis, Melanoma, Hypotension, Esophageal reflux, Histoplasmosis, COPD. * Surgical History: T onsilectomy 1949, 03/10/1967, 10/21/1968, 01/02/1971, Melanoma Removal 2002, 2022. * Hospitalization/Major Diagno stic Procedure: H istoplasmosis, treated at [facility] 02/2024. * Family History: F ather: diagnosed with Cancer. M aternal aunt: diagnosed with Cancer. 1 brother(s) , 1 sister(s) . 1 son(s) , 2 daughter(s) . . * Social History: C URRENT TOBACCO USE: No . C affeine: yes, frequency: 3 times daily. Alcohol: yes, 4 Times Weekly. * Medications: T aking Klor-Con 10 10 MEQ Tablet Extended Release 1 tablet with food Orally Twice a day , Taking Pantoprazole Sodium 40 MG Tablet Delayed Release 1 tablet Orally Once a day , Taking Melatonin 3 MG Tablet 1 tablet at bedtime as needed Orally Once a day , Taking Florajen3 - Capsule as directed Orally , Taking Voriconazole 200 MG Tablet 1 tablet 1 hour before or 1 hour after meals Orally every 12 hrs , Taking Fludrocortisone Acetate 0.1 MG Tablet 1 tablet Orally Once a day , Taking Bumetanide 0.5 MG Tablet 1 tablet Orally Once a day , Taking Midodrine HCl 5 MG Tablet 3 tablets Orally once daily , Taking Magnesium 400 MG Tablet 1 tablet with a meal Orally Once a day , Taking Gabapentin 300 MG Capsule 1 capsule Orally Once a day , Not-Taking Rheumate - Capsule as directed Orally , Not-Taking Remicade 100 MG Solution Reconstituted as directed Intravenous Every 5 Weeks , Not-Taking Methotrexate Sodium 2.5 MG Tablet as directed Orally 6 Pills Weekly , Not-Taking Azelastine- Fluticasone 137-50 MCG/ACT Suspension 1 spray in each nostril Nasally Twice a day , Not- Taking ZyrTEC 10 MG Tablet Chewable 1 tablet Orally Once a day , Not-Taking Rosuvastatin Calcium 5 MG Tablet 1 tablet Orally Once a day , Discontinued Calcium Citrate + D 315-5 MG-MCG Tablet 1 tablet Orally Once a day , Medication List reviewed and reconciled with the patient * Allergies: N .K.D.A. Objective: * Vitals: W t:136.4, Temp:98.0, BP:86/40, HR:109, O2 Sat:91% on RA, Nurse:la, Ht: 67, BMI:21.36. * Examination: G eneral Examination: General Appearance: N AD. H eart: R SR. L ungs:?clear to auscultation. S kin: n ormal, no rash. P eripheral pulses: n ormal (2+) bilaterally. E xtremities: b ilateral leg edema, compressive sleeves in use, foot edema present. Assessment: * Assessment: 1. 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 I diopathic hypotension - I95.0 3 . L ymphedema - I89.0 Plan: * Treatment: 2. I diopathic hypotension L AB: P-Basic Metabolic Panel (BMP) (Collection Date & Time - 03/02/2024 01:21 PM) g bhavin 168, Cr 1.01, gfr 57 Value Reference Range B UN 16 8-23 - mg/dL * C alcium 9.4 8.6-10.4 - mg/dL * C hloride 105 97-108 - mmol/L * C O2 26 22-32 - mmol/L * C reatinine 1.01 H 0.50-1.00 - mg/dL * G lucose 168 H 65-99 - mg/dL * P otassium 5.2 3.5-5.3 - mmol/L * S odium 137 135-145 - mmol/L * e GFR by Creatinine 57 L >59 - mL/min/1.73m2 * Alondra Ley 03/03/2024 9:19: 54 AM >See phone encounter ?LAB: CBC Venipuncture (in house) (Collection Date & Time - 03/02/2024)?hgb 11.2, hct 34* Value Reference Range w bc 8.3 3.5 - 10 * l ymph 17.2% 15 - 50 * m id 4.9% 2 - 15 * g ran 77.9% 35 - 80 * r bc 3.53 3.5 - 5.5 * h gb 11.2 11.5 - 16.5 * h ct 34.0 35 - 55 * m cv 96.2 75 - 100 * m ch 31.8 25 - 35 * m chc 33.1 31 - 38 * p latlet 303 100 - 400 * KingChandni 03/02/2024 2:37:31 PM > AvAlondra slater 03/03/2024 9:19:54 AM >See phone encounter 3.?Lymphedema? Referral To:. Physical Therapy??Physical Therapist ?Reason:HM 4.?Others? Stop Klor-Con 10 Tablet Extended Release, 10 MEQ, 1 tablet with food, Orally, Twice a day;?Stop Bumetanide Tablet, 0.5 MG, 1 tablet, Orally, Once a day.?? * Procedure Codes: G 2211 Complex e/[place] [address] CBC WITH AUTO DIFF * Follow Up: 4 Weeks * Images: Billing Information: * Visit Code: 87515 Office Visit, Est Pt., Level 4. * Procedure Codes: G2211 Complex e/[place]. [address] CBC WITH AUTO DIFF. * Electronic signature of Alisha Beavers MD on 06/21/2025 at 02:52 PM EST Sign off status: Pending * Provider: Singh Beavers M.D. Date: 0 03/02/2024 Generated for [place] calderon/Nik/Taryn on: 1 08/22/2024 02:52 PM EST History and Physical Notes * HPI (History of Present Illness) Category Sub-Category Detail Notes Category Not es HPI Here for follow up on: 02/03-2023 [facility] admit. Pt states that she is feeling much better since d/c and does not have any concerns today Examination Category Sub-Category Detail Notes Category Not es General Examination Heart: RSR Lungs: clear to auscultatio n Extremities: bilateral leg edema, compressive sleeves in use, foot edema present General Appearance: NAD Skin: normal, no rash Peripheral pulses: normal (2+) bilatera lly Consultation Request Notes Referral Date Referring Provider Referred Provider Not es 03/02/2024 Miles Beavers Physical Therapy, . [facility]
--- OUTSIDE RECORDS SUMMARY | 2024-03-23 08:45 | XMS_ITS ---
Author Organization Kamran Address [address] [facility] [address] [place] [id number] Care Team Providers Care Director Of Child Welfare Services Name Role Phone Miles Beavers Unavailable [phone] Allergies No Known Allergies REASON FOR VISIT 4 week f/u Medications Medication SIG (Take, Route, Frequency, Duration) Notes Start Date End Date Status Midodrine HCl 5 MG 3 tablets Orally onc e daily Active Gabapentin 300 MG 1 capsule Orally Onc e a day; Duration: 90 days 10/28/2023 Active Pantoprazole Sodium 40 MG 1 tablet Orall y Once a day; Duration: 90 days Active Magnesium 400 MG 1 tablet with a meal Orally Once a day; Duration: 90 days Active Melatonin 3 MG 1 tablet at bedtime as needed Orally Once a day; Duration: 30 day(s) Active Florajen3 - as directed Orally Active Voriconazole 200 MG 1 tablet 1 hour befo re or 1 hour after meals Orally every 12 hrs Active Fludrocortisone Acetate 0.1 MG 1 tablet Orally Once a day; Duration: 30 day(s) Active Vital Signs Blood pressure systolic 130 mm Hg 03/23/20 24 Blood pressure diastolic 70 mm Hg 024 Heart Rate 88 /min 03/23/2024 Height 67 in 03/23/2024 Weight 139.2 lbs 03/23/2024 BMI 21.80 kg/m2 03/23/2024 Encounters Encounter Location Date Provider Diagnosis [place] [address] [facility] [address] [place] [id number] 03/23/2024 Miles Beavers Lymphedema I89.0 and Skin tear of right forearm without complication, initial encounter S51.811A Assessments Encounter Date Diagnosis (ICD Code) Assessment Notes Treatment Notes Treatment Clinical Notes Section Notes 03/23/2024 Lymphedema (ICD-10 - I89.0) Continue treatment at [facility] PT/rehab clinic 03/23/2024 Skin tear of right forearm without complication, initial encounter (ICD-10 - S51.811A) wound care discussed with patient Plan Of Treatment Treatment Notes Assessment Notes Lymphedema Continue treatment a t [facility] PT/rehab clinic Skin tear of right forearm w ithout complication, initial encounter wound care discussed with patient Next Appt Details Follow Up: 3 Months, Reason: Provider Name:Miles Quoc cormier, 06/21/2025 02:32:00 PM, [address], [address], [place], [phone], Provider Name:Miles T Varghese cormier, 06/23/2025 11:00:00 AM, [address], [address], [place], [id number], Progress Notes * SAUL GIVENSOB:1945 (79 yo F)Acc No.[id number]:03/23/2024 Progress Notes Patient: NATALIE SAHU Provider: Singh Beavers M.D. :1945 A ge:78 Y S ex:Female Date:03/23/2024 Address:[address] [place], [place] [address] Subjective: * Chief Complaints: * 1 . 4 week f/u. * HPI: H PI: 78 year old female presents with c/o Here for follow up on:?Pt here for 1 mo f/u on [facility] d/c. Pt states she is doing much better but swelling in legs and feet is still awful . D ermatology: c/o Wound P t complains of wound on rt forearm. States her dog accidentally scratched her last week. Pt states the skin was pulled back and it stings all the time . Pt has been putting bandaide and Aquaphor o n it but it is not healing. * ROS: D ERMATOLOGY: no R sari. [...] Removal 2022. 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 * Family History: F ather: diagnosed with Cancer. M aternal aunt: diagnosed with Cancer. 1 brother(s) , 1 sister(s) . 1 son(s) , 2 daughter(s) . . * Social History: C URRENT TOBACCO USE: No . C affeine: yes, frequency: 3 times daily. Alcohol: yes, 4 Times Weekly. * Medications: T aking Melatonin 3 MG Tablet 1 tablet at [...] 3 tablets Orally once daily , Taking Gabapentin 300 MG Capsule 1 capsule Orally Once a day , Taking Pantoprazole Sodium 40 MG Tablet Delayed Release 1 tablet Orally Once a day , Taking Magnesium 400 MG Tablet 1 tablet with a meal Orally Once a day , Discontinued Rheumate - Capsule as directed Orally , Discontinued Remicade 100 MG Solution Reconstituted as directed Intravenous Every 5 Weeks , Discontinued Methotrexate Sodium 2.5 MG Tablet as directed Orally 6 Pills Weekly , Discontinued Azelastine-Fluticasone 137-50 MCG/ACT Suspension 1 spray in each nostril Nasally Twice a day , Discontinued ZyrTEC 10 MG Tablet Chewable 1 tablet Orally Once a day , Discontinued Rosuvastatin Calcium 5 MG Tablet 1 tablet Orally Once a day , Medication List reviewed and reconciled with the patient * Allergies: N .K.D.A. Objective: * Vitals: W t:139.2, Temp:97.8, BP:130/70, HR:88, Nurse:la, Ht: 67, BMI:21.80. * Examination: G eneral Examination: General Appearance: N AD. E xtremities: 1 + bilateral leg edema, compressive socks in place, mid right forearm with a 7 cm x 4 cm skin tear, no active bleeding or surrounding erythema. Assessment: * Assessment: 1. L ymphedema - I89.0 (Primary) 2 . S kin tear of right forearm without complication, initial encounter - S51.026X Plan: * Treatment: 2. S kin tear of right forearm without complication, initial encounter Notes: wound care discussed with patient * Procedure Codes: G 2211 Complex e/m visit add on * Follow Up: 3 Months * Images: Billing Information: * Visit Code: 30477 Office Visit, Est Pt., Level 3. * Procedure Codes: G2211 Complex e/m visit add on. * Electronic signature of Alisha Beavers MD on 06/21/2025 at 02:52 PM EST Sign off status: Pending * Provider: Singh Beavers M.D. Date: 0 03/23/2024 Generated for Kingston calderon/Nik/Kellysmitting on: 1 08/22/2024 02:52 PM EST History and Physical Notes * HPI (History of Present Illness) Category Sub-Category Detail Notes Category Not es Dermatology Wound Pt complains of wound on rt forearm. States her dog accidentally scratched her last week. Pt states the skin was pulled back and it stings all the time . Pt has been putting bandaide and Aquaphor on it but it is not healing HPI Here for follow up on: Pt here f or 1 mo f/u on [facility] d/c. Pt states she is doing much better but swelling in legs and feet is still awful Examination Category Sub-Category Detail Notes Category Not es General Examination Extremities: 1+ bilateral leg edema, compressive socks in place, mid right forearm with a 7 cm x 4 cm skin tear, no active bleeding or surrounding erythema General Appearance: NAD
--- OUTSIDE RECORDS SUMMARY | 2024-04-05 06:15 | XMS_ITS ---
Author Organization [facility] Address [address] [facility] [address] [facility] [address] [place] [id number] Care Team Providers Care Web Operations Specialist Name Role Phone Ruthann Miles Unavailable [phone] Cassie Peterson Unavailable [phone] Allergies No Known Allergies REASON FOR VISIT achey, fever Encounters Encounter Location Date Provider Diagnosis [place] [address] [facility] [address] [place] [id number] 04/05/2024 Cassie Peterson Plan Of Treatment Next Appt Details Provider Name:Miles Kwong ry, 06/21/2025 02:32:00 PM, [address], [address], [place], [place], [phone], Provider Name:Miles cormier, 06/23/2025 11:00:00 AM, [address] [facility], [address], [place], [place], [id number], Progress Notes * SAUL GIVENSOB:1945 (79 yo F)Acc No.[id number]:04/05/2024 Progress Notes Patient: NATALIE SAHU Provider: KAVITA Barrett :1945 A ge:78 Y S ex:Female Date:04/05/2024 Address:[facility] [id number] Subjective: * Chief Complaints: * 1 . Achey, fever. * HPI: E NT/respiratory: 78 year old female presents with c/o Fever P t is here today for c/o having fever and feeling achey. * ROS: D ERMATOLOGY: no R sari. 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 * Family History: F ather: diagnosed [...] * Procedure Codes: * Electronic signature of Bianka Peterson APRN on 06/21/2025 at 02:53 PM EST Sign off status: Pending * Provider: KAVITA Barrett Date: Generated for [place] calderon/Nik/Taryn on: 08/22/2024 02:53 PM EST History and Physical Notes * HPI (History of Present Illness) Category Sub-Category Detail Notes Category Not es ENT/respiratory Fever Pt is here today for c/o having fever and feeling achey
--- OUTSIDE RECORDS SUMMARY | 2024-06-22 08:30 | XMS_ITS ---
Author Organization Kamran Address [address] [facility] [address] [place] [id number] Care Team Providers Care Geological Specialist Name Role Phone Miles Beavers Unavailable [phone] Allergies No Known Allergies REASON FOR VISIT 3 months Medications Medication SIG (Take, Route, Frequency, Duration) Notes Start Date End Date Status Pantoprazole Sodium 40 MG 1 tablet Orall y Once a day Active Midodrine HCl 5 MG 2 tablets Orally Two times a day Active Gabapentin 300 MG 1 capsule Orally Onc e a day; Duration: 90 days 03/29/2024 Active Magnesium Oxide -Mg Supplement 400 (240 Mg) MG TAKE 1 TABLET BY MOUTH ONCE DAILY; Duration: 90 Active Fludrocortisone Acetate 0.1 MG 1 tablet Orally Once a day; Duration: 30 day(s) Active Rosuvastatin Calcium 5 MG 1 tablet Orall y Once a day; Duration: 30 day(s) Active Melatonin 3 MG 1 tablet at bedtime as needed Orally Once a day; Duration: 30 day(s) Active Florajen3 - as directed Orally Active Voriconazole 200 MG 1 tablet 1 hour befo re or 1 hour after meals Orally every 12 hrs Active Vital Signs Blood pressure systolic 134 mm Hg 06/22/20 24 Blood pressure diastolic 76 mm Hg 024 Heart Rate 94 /min 06/22/2024 Height 67 in 06/22/2024 Weight 134.2 lbs 06/22/2024 BMI 21.02 kg/m2 06/22/2024 Encounters Encounter Location Date Provider Diagnosis Pa[facility] [address] [facility] [address] [place] [phone] 06/22/2024 Miles Beavers Lymphedema I89.0 and Gastroesophageal reflux disease, unspecified whether esophagitis present K21.9 Assessments Encounter Date Diagnosis (ICD Code) Assessment Notes Treatment Notes Treatment Clinical Notes Section Notes 06/22/2024 Lymphedema (ICD-10 - I89.0) Much improved. 06/22/2024 Gastroesophageal reflux disease, unspecified whether esophagitis present (ICD-10 - K21.9) Plan Of Treatment Medication Medication Name Sig Start Date Stop Date Notes Pantoprazole Sodium 40 MG 1 tablet Orally Once a day Treatment Notes Assessment Notes Lymphedema Much improved. Next Appt Details Follow Up: 6 Months, Reason: Provider Name:Miles cormier, 06/21/2025 02:32:00 PM, [address] [facility] [address], [address], [place], [phone], Provider Name:Miles cormier, 06/23/2025 11:00:00 AM, [address] [facility], [address], [place], [id number], Progress Notes * CHIDI GIVENSLAURENCEOB:1945 (79 yo F)Acc No.[id number]:06/22/2024 Progress Notes Patient: NATALIE SAHU Provider: Singh Beavers M.D. :1945 A ge:78 Y S ex:Female Date:06/22/2024 Address:[address] [place], [place] [id number] Subjective: * Chief Complaints: * 1 . 3 months. * HPI: H PI: 78 year old female presents with c/o Patient is here today for?Pt here for 3 mo f/u. Pt states she is doing well and does not have any concerns today. 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 * Family History: F ather: diagnosed with Cancer. M aternal aunt: diagnosed with Cancer. 1 brother(s) , 1 sister(s) . 1 son(s) , 2 daughter(s) . . * Social History: C URRENT TOBACCO USE: No . C affeine: yes, frequency: 3 times daily. Alcohol: yes, 4 Times Weekly. * Medications: T aking Rosuvastatin Calcium 5 MG Tablet 1 tablet [...] , Taking Midodrine HCl 5 MG Tablet 2 tablets Orally Two times a day , Taking Pantoprazole Sodium 40 MG Tablet Delayed Release 1 tablet Orally Once a day , Taking Gabapentin 300 MG Capsule 1 capsule Orally Once a day , Taking Magnesium Oxide -Mg Supplement 400 (240 Mg) MG Tablet TAKE 1 TABLET BY MOUTH ONCE DAILY , Medication List reviewed and reconciled with the patient * Allergies: N .K.D.A. Objective: * Vitals: W t:134.2, Temp:98.1, BP:134/76, HR:94, Nurse:la, Ht: 67, BMI:21.02. * Examination: G eneral Examination: General Appearance: N AD. H eart: R SR. L ungs:?clear to auscultation. Assessment: * Assessment: 1. L ymphedema - I89.0 (Primary) 2 . G astroesophageal reflux disease, unspecified whether esophagitis present - K21.9 Plan: * Treatment: 2. G astroesophageal reflux disease, unspecified whether esophagitis present Continue Pantoprazole Sodium Tablet Delayed Release, 40 MG, 1 tablet, Orally, Once a day. ? * Procedure Codes: G 2211 Complex e/m visit add on * Follow Up: 6 Months * Images: Billing Information: * Visit Code: 23603 Office Visit, Est Pt., Level 3. * Procedure Codes: G2211 Complex e/m visit add on. * Electronic signature of Alisha Beavers MD on 06/21/2025 at 02:52 PM EST Sign off status: Pending * Provider: Singh Beavers M.D. Date: 08/23/2023 Generated for [place] calderon/Nik/Kellysmitting on: 08/22/2024 02:52 PM EST History and Physical Notes * HPI (History of Present Illness) Category Sub-Category Detail Notes Category Not es HPI Patient is here today for Pt her e for 3 mo f/u. Pt states she is doing well and does not have any concerns today Examination Category Sub-Category Detail Notes Category Not es General Examination Heart: RSR Lungs: clear to auscultatio n General Appearance: NAD
--- OUTSIDE RECORDS SUMMARY | 2024-08-08 09:45 | XMS_ITS ---
[facility] Address [address] [place] [id number] Care Team Providers Care Coating Technician Name Role Phone Miles Beavers Unavailable [phone] Allergies No Known Allergies Results Component Value Reference Range Notes Influenza Screen (in house) Reviewed date:08/08/2024 03:46:00 PM Interpretation: Performing Lab: Notes/Report: results Neg CBC Fingerstick (in house) Reviewed date:08/08/2024 03:45:38 PM Interpretation: Performing Lab: Notes/Report: wbc 10.3 3.5 - 10 lym 21.0% 15 - 50 mid 5.0% 2 - 15 gran 74.0% 35 - 80 rbc 4.14 3.5 - 5.5 hgb 12.8 11.5 - 16.5 hct 38.3 35 - 55 mcv 92.4 75 - 100 mch 30.8 25 - 35 mchc 33.4 31 - 38 plat 163 100 - 400 Covid test (in house) Reviewed date:08/08/2024 03:45:31 PM Interpretation: Performing Lab: Notes/Report: Result: Neg REASON FOR VISIT congestion & cough Medications Medication SIG (Take, Route, Frequency, Duration) Notes Start Date End Date Status Voriconazole 200 MG 1 tablet 1 hour befo re or 1 hour after meals Orally every 12 hrs Active Midodrine HCl 5 MG 2 tablets Orally Two times a day Active Fludrocortisone Acetate 0.1 MG 1 tablet Orally Once a day; Duration: 30 day(s) Active Pantoprazole Sodium 40 MG 1 tablet Orall y Once a day Active Magnesium Oxide -Mg Supplement 400 (240 Mg) MG TAKE 1 TABLET BY MOUTH ONCE DAILY; Duration: 90 Active Florajen3 - as directed Orally Active Melatonin 3 MG 1 tablet at bedtime as needed Orally Once a day; Duration: 30 day(s) Active Rosuvastatin Calcium 5 MG 1 tablet Orall y Once a day; Duration: 30 day(s) Active Zithromax Z-Feliciano 250 MG as directed Orall y once daily; Duration: 5 day(s) 08/08/2024 Active Benzonatate 200 MG 1 capsule as needed Orally Three times a day 08/08/2024 Active Gabapentin 300 MG 1 capsule Orally Onc e a day; Duration: 90 days 06/28/2024 Active Vital Signs Blood pressure systolic 132 mm Hg 08/08/19 25 Blood pressure diastolic 70 mm Hg 025 Heart Rate 88 /min 08/08/2024 Height 67 in 08/08/2024 Weight 132 lbs 08/08/2024 BMI 20.67 kg/m2 08/08/2024 Encounters Encounter Location Date Provider Diagnosis [facility] [address] [facility] [address] [facility] [address] [place] [phone] 08/08/2024 Miles Beavers Acute URI J06.9 Assessments Encounter Date Diagnosis (ICD Code) Assessment Notes Treatment Notes Treatment Clinical Notes Section Notes 08/08/2024 Acute URI (ICD-10 - J06.9) Plan Of Treatment Medication Medication Name Sig Start Date Stop Date Notes Zithromax Z-Feliciano 250 MG as directed Orall y once daily; Duration: 5 day(s) 08/08/2024 Benzonatate 200 MG 1 capsule as needed Orally Three times a day 08/08/2024 Next Appt Details Follow Up: prn, Reason: Provider Name:Miles cormier, 06/21/2025 02:32:00 PM, [address] [facility] [address] [facility], [address], [place], [phone], Provider Name:Miles cormier, 06/23/2025 11:00:00 AM, [address] [facility] [address] [facility], [address], [place], [phone], Progress Notes * SAUL GIVENSOB:1945 (79 yo F)Acc No.[id number]:08/08/2024 Progress Notes Patient: NATALIE SAHU Provider: Singh Beavers M.D. :1945 A ge:78 Y S ex:Female Date:08/08/2024 Address:[id number] Subjective: * Chief Complaints: * 1 . Congestion & cough. * HPI: E NT/respiratory: 78 year old female presents with c/o cough P t complains of dry without any sputum production cough that started . Associated with nasal congestion and headache . * ROS: D ERMATOLOGY: no R sari. n o H mehul. G ASTROENTEROLOGY: no N ausea. n o V omiting. U ROLOGY: no D ifficulty urinating. n o B lood in urine. * Medical History: A sthma, Hyperlipidemia, Allergic Rhinitis, Rheumatoid Arthritis, Melanoma, Hypotension, Esophageal reflux, histoplasmosis, Dx: January 2024, COPD. * Surgical History: T onsilectomy 1949, 03/10/1967, 10/21/1968, 01/02/1971, Melanoma Removal 2002, 2022. * Hospitalization/Major Diagno stic Procedure: H istoplasmosis, treated at [facility] 02/2024. * Family History: F ather: [...] Orally Two times a day , Taking Magnesium Oxide -Mg Supplement 400 (240 Mg) MG Tablet TAKE 1 TABLET BY MOUTH ONCE DAILY , Taking Pantoprazole Sodium 40 MG Tablet Delayed Release 1 tablet Orally Once a day , Taking Gabapentin 300 MG Capsule 1 capsule Orally Once a day , Taking Rosuvastatin Calcium 5 MG Tablet 1 tablet Orally Once a day , Medication List reviewed and reconciled with the patient * Allergies: N .K.D.A. Objective: * Vitals: W t:132, Temp:97.6, BP:132/70, HR:88, O2 Sat:98% on RA, Nurse:la, Ht: 67, BMI:20.67. * Examination: E NT/Respiratory: General Appearance: N AD. E yes: P ERRLA, sclera clear. O ral cavity : erythema without exudate on pharynx. N petar : n o cervical lymphadenopathy. H eart : R RR, normal S1 S2. L ungs: c lear to auscultation bilaterally. Assessment: * Assessment: 1. Nisha chu URI - J06.9 (Primary) Plan: * Treatment: Value Reference Range r esults Neg * Chandni Capps 08/08/2024 3:06:56 PM > , Provider reviewed results while patient in office. ?LAB: CBC Fingerstick (in house) (Collection Date & Time - 08/08/2024)* Value Reference Range w bc 10.3 3.5 - 10 * l ym 21.0% 15 - 50 * m id 5.0% 2 - 15 * g ran 74.0% 35 - 80 * r bc 4.14 3.5 - 5.5 * h gb 12.8 11.5 - 16.5 * h ct 38.3 35 - 55 * m cv 92.4 75 - 100 * m ch 30.8 25 - 35 * m chc 33.4 31 - 38 * p lat 163 100 - 400 * Chandni Capps 08/08/2024 3:13:21 PM > , Provider reviewed results while patient in office. ?LAB: Covid test (in house) (Collection Date & Time - 08/08/2024)* Value Reference Range R esult: Neg * Chandni Capps 08/08/2024 3:07:29 PM > , Provider reviewed results while patient in office. * Procedure Codes: G 2211 Complex e/[place], [address] Flu Test- Nasal Swab, Modifiers: QW , [address] [place], [address] COVID TEST IN HOUSE, Modifiers: QW , 50252 CAPILLARY BLOOD DRAW, 21053 CBC WITH AUTO DIFF, 3075F SYST BP GE 130 - 139MM HG, 3078F DIAST BP < 80 MM HG * Follow Up: p rn * Images: Billing Information: * Visit Code: 13540 Office Visit, Est Pt., Level 3. * Procedure Codes: G2211 Complex e/[place]. [address] Flu Test- Nasal Swab. Modifiers: QW [address] [place]. [address] COVID TEST IN HOUSE. Modifiers: QW 57398 CAPILLARY BLOOD DRAW. 80569 CBC WITH AUTO DIFF. 3075F SYST BP GE 130 - 139MM HG. 3078F DIAST BP < 80 MM HG. * Electronic signature of Alisha Beavers MD on 06/21/2025 at 02:53 PM EST Sign off status: Pending * Provider: Singh Beavers M.D. Date: 0 08/08/2024 Generated for Chelii yumiko/Nik/eTransmitting on: 1 08/22/2024 02:53 PM EST History and Physical Notes * HPI (History of Present Illness) Category Sub-Category Detail Notes Category Not es ENT/respiratory cough Pt complains of dry without any sputum production cough that started . Associated with nasal congestion and headache Examination Category Sub-Category Detail Notes Category Not es ENT/Respiratory Oral cavity : erythema without exudate on pharynx Neck : no cervical lymphade nopathy Heart : RRR, normal S1 S2 Lungs: clear to auscultatio n bilaterally General Appearance: NAD Eyes: PERRLA, sclera clear
--- OUTSIDE RECORDS SUMMARY | 2024-12-21 06:00 | XMS_ITS ---
Author Organization [facility] Address [address] [facility] [address] [place] [id number] Care Team Providers Care Roustabout Crew Name Role Phone Miles Beavers Unavailable [phone] Allergies No Known Allergies Results Component Value Reference Range Notes TSH Reviewed date:02/23/2025 10:19:58 AM Interpretation:see 02/22/2025 Performing Lab: Notes/Report: see 02/22/2025 CMP Reviewed date:02/23/2025 10:20:10 AM Interpretation:see 02/22/2025 Performing Lab: Notes/Report: see 02/22/2025 lipid profile Reviewed date:02/23/2025 10:20:20 AM Interpretation:see 02/22/2025 Performing Lab: Notes/Report: see 02/22/2025 CBC Reviewed date:02/23/2025 10:20:31 AM Interpretation:see 02/22/2025 Performing Lab: Notes/Report: see 02/22/2025 REASON FOR VISIT 6 months Medications Medication SIG (Take, Route, Frequency, Duration) Notes Start Date End Date Status Rosuvastatin Calcium 5 MG 1 tablet Orall y Once a day Active Magnesium Oxide -Mg Supplement 400 (240 Mg) MG 1 tablet with food Orally Twice a day; Duration: 90 days Active Gabapentin 300 MG 1 capsule Orally Onc e a day; Duration: 90 days 09/27/2024 Active Pantoprazole Sodium 40 MG 1 tablet Orall y Once a day Active Voriconazole 200 MG 1 tablet 1 hour befo re or 1 hour after meals Orally every 12 hrs Active Florajen3 - as directed Orally Active Vital Signs Blood pressure systolic 122 mm Hg 12/22/19 25 Blood pressure diastolic 72 mm Hg 025 Heart Rate 94 /min 12/21/2024 Height 67 in 12/21/2024 Weight 128 lbs 12/21/2024 BMI 20.05 kg/m2 12/21/2024 Encounters Encounter Location Date Provider Diagnosis [facility] Maria [address] [facility] [address] [place] [id number] 12/21/2024 Miles Beavers Pure hypercholestero lemia E78.00 ; Peripheral edema R60.0 ; Gastroesophageal reflux disease, unspecified whether esophagitis present K21.9 ; Long-term use of high-risk medication Z79.899 ; Rheumatoid arthritis, involving unspecified site, unspecified whether rheumatoid factor present M06.9 and BMI 20.0-20.9, adult Z68.20 Assessments Encounter Date Diagnosis (ICD Code) Assessment Notes Treatment Notes Treatment Clinical Notes Section Notes 12/21/2024 Pure hypercholesterolemia (ICD-10 - E78.00) 12/21/2024 Peripheral edema (ICD-10 - R60.0) Compression stockings recommended 12/21/2024 Gastroesophageal ref lux disease, unspecified whether esophagitis present (ICD-10 - K21.9) 12/21/2024 Long-term use of high-risk medication (ICD-10 - Z79.899) 12/21/2024 Rheumatoid arthritis , involving unspecified site, unspecified whether rheumatoid factor present (ICD-10 - M06.9) 12/21/2024 BMI 20.0-20.9, adult (ICD-10 - Z68.20) Plan Of Treatment Medication Medication Name Sig Start Date Stop Date Notes Rosuvastatin Calcium 5 MG 1 tablet Orally Once a day Pantoprazole Sodium 40 MG 1 tablet Orally Once a day Treatment Notes Assessment Notes Peripheral edema Compression stocking s recommended Next Appt Details Follow Up: via phone to repo rt test results,6 Months, Reason: Provider Name:Miles cormier, 06/21/2025 02:32:00 PM, [address] [facility] [address] [facility], [address], [place], [id number], Provider Name:Miles cormier, 06/23/2025 11:00:00 AM, [address] [facility] [address] [facility], [address], [place], [id number], Progress Notes * SAUL GIVENSOB:1945 (79 yo F)Acc No.[id number]:12/21/2024 Progress Notes Patient: NATALIE SAHU Provider: Singh Beavers M.D. :1945 A ge:79 Y S ex:Female Date:12/21/2024 Address:[address] [place], [place] [address]Rosa Maria [place], [id number] Subjective: * Chief Complaints: * 1 . 6 months. * HPI: C ardiology: 79 year old female presents with c/o Short of Breath w ith exertion. c/o Dizziness s ensation of imbalance, sensation of room spinning. c/o Hyperlipidemia p t here for a cheack up on Hyperlipiidemia. Pt states she is having swelling in her feet and ankles. Pt also c/o redless on her face more at night. Pt states it feels like an hot flash. Denies : Chest Pain. D enies : Palpitations. * ROS: D ERMATOLOGY: no R sari. n o H mehul. G ASTROENTEROLOGY: no N ausea. n o V omiting. n o D iarrhea.? U ROLOGY: no D ifficulty urinating. n o B lood in urine. * Medical History: A sthma, Hyperlipidemia, Allergic Rhinitis, Rheumatoid Arthritis, Melanoma, Hypotension, Esophageal reflux, histoplasmosis, Dx: January 2024, COPD. * Surgical History: T onsilectomy 1949, 03/10/1967, 10/21/1968, 01/02/1971, Melanoma Removal 2022. * Hospitalization/Major Diagno stic Procedure: H istoplasmosis, treated at [facility] 02/2024. * Family History: F ather: diagnosed with Cancer. M aternal aunt: diagnosed with Cancer. 1 brother(s) , 1 sister(s) . 1 son(s) , 2 daughter(s) . . * Social History: C URRENT TOBACCO USE: No . C affeine: yes, frequency: 3 times daily. Alcohol: yes, 4 Times Weekly. * Medications: T aking Florajen3 - Capsule as directed Orally , Taking Voriconazole 200 MG Tablet 1 tablet 1 hour before or 1 hour after meals Orally every 12 hrs , Taking Pantoprazole Sodium 40 MG Tablet Delayed Release 1 tablet Orally Once a day , Taking Rosuvastatin Calcium 5 MG Tablet 1 tablet Orally Once a day , Taking Magnesium Oxide -Mg Supplement 400 (240 Mg) MG Tablet 1 tablet with food Orally Twice a day , Taking Gabapentin 300 MG Capsule 1 capsule Orally Once a day , Discontinued Melatonin 3 MG Tablet 1 tablet at bedtime as needed Orally Once a day , Discontinued Fludrocortisone Acetate 0.1 MG Tablet 1 tablet Orally Once a day , Discontinued Midodrine HCl 5 MG Tablet 2 tablets Orally Two times a day , Discontinued Zithromax Z-Feliciano 250 MG Tablet as directed Orally once daily , Discontinued Benzonatate 200 MG Capsule 1 capsule as needed Orally Three times a day , Medication List reviewed and reconciled with the patient * Allergies: N .K.D.A. Objective: * Vitals: W t: 128, Temp: 97.4, BP: 122/72, HR: 94, Nurse: pe, Ht: 67, BMI:20.05. * Examination: G eneral Examination: General Appearance: N AD. H eart: R SR. L ungs:?clear to auscultation. S kin: d ull, confluent skin redness over the anterior portion of both lower legs. P eripheral pulses: n ormal (2+) bilaterally. E xtremities: 1 + bilateral lower leg edema. Assessment: * Assessment: 1. P ure hypercholesterolemia - E78.00 (Primary) 2 . P eripheral edema - R60.0 3 . G astroesophageal reflux disease, unspecified whether esophagitis present - K21.9 4 . L shelodn-term use of high-risk medication - Z79.899 5 . R heumatoid arthritis, involving unspecified site, unspecified whether rheumatoid factor present - M06.9 6 . B [place] 20.0-20.9, adult - Z68.20 Plan: * Treatment: 2. P eripheral edema L AB: TSH (Collection Date & Time - 02/23/2025) s ee 02/22/2025 L AB: CMP (Collection Date & Time - 02/23/2025) s ee 02/22/2025 Notes: Compression stockings recommended 3. G astroesophageal reflux disease, unspecified whether esophagitis present Continue Pantoprazole Sodium Tablet Delayed Release, 40 MG, 1 tablet, Orally, Once a day. ? 4. L sheldon-term use of high-risk medication L AB: CBC (Collection Date & Time - 02/23/2025) s ee 02/22/2025 * Procedure Codes: G 2211 Complex e/m visit add on, 1036F TOBACCO NON-USER, G8420 BMI<30 AND >=22 CALC & DOCU, G8783 BP SCR PRFRM RCMDD DEFIND SCR INTVL, G8752 MOST RECENT SYSTOLIC BP < 140MM HG, G8754 MOST RECENT DIASTOLIC BP < 90MM HG * Follow Up: v ia phone to report test results,6 Months * Images: Billing Information: * Visit Code: 11770 Office Visit, Est Pt., Level 4. * Procedure Codes: G2211 Complex e/m visit add on. 1036F TOBACCO NON-USER. G8420 BMI<30 AND >=22 CALC & DOCU. G8783 BP SCR PRFRM RCMDD DEFIND SCR INTVL. G8752 MOST RECENT SYSTOLIC BP < 140MM HG. G8754 MOST RECENT DIASTOLIC BP < 90MM HG. * Electronic signature of Alisha Beavers MD on 06/21/2025 at 02:53 PM EST Sign off status: Pending * Provider: Singh Beavers M.D. Date: 0 12/21/2024 Generated for [place] calderon/Nik/Jesikaitting on: 1 08/22/2024 02:53 PM EST History and Physical Notes * HPI (History of Present Illness) Category Sub-Category Detail Notes Category Not es Cardiology Short of Breath with exertion Chest Pain Palpitations Dizziness sensation of imbalan ce, sensation of room spinning Hyperlipidemia pt here for a cheack up on Hyperlipiidemia. Pt states she is having swelling in her feet and ankles. Pt also c/o redless on her face more at night. Pt states it feels like an hot flash Examination Category Sub-Category Detail Notes Category Not es General Examination Heart: RSR Lungs: clear to auscultatio n Extremities: 1+ bilateral lower l eg edema General Appearance: NAD Skin: dull, confluent skin redness over the anterior portion of both lower legs Peripheral pulses: normal (2+) bilatera lly
--- OUTSIDE RECORDS SUMMARY | 2025-03-15 10:45 | XMS_ITS ---
Author Organization [facility] Address [address] [place] [id number] Care Team Providers Care Water Tester Name Role Phone Miles Beavers Unavailable [phone] Ruma Castro Unavailable [phone] REASON FOR VISIT diarrhea Encounters Encounter Location Date Provider Diagnosis [facility] [address] [place], [place] [id number] 03/15/2025 Ruma Castro Plan Of Treatment Next Appt Details Provider Name:Miles cormier, 06/21/2025 02:32:00 PM, [address], [address], [place], [place], [id number], Provider Name:Miles cormier, 06/23/2025 11:00:00 AM, [address], [address], [place], [place], [phone], Progress Notes * CHIDI GIVENSLAURENCEOB:1945 (79 yo F)Acc No.[id number]:03/15/2025 Progress Notes Patient: NATALIE SAHU Provider: EMIGDIO Harrell :1945 A ge:79 Y S ex:Female Date:03/15/2025 Address:[facility] [id number] Subjective: * Chief Complaints: * 1 . Diarrhea. * Medical History: Objective: * Vitals: Assessment: Plan: * Treatment: * Images: Billing Information: * Visit Code: * Procedure Codes: * Electronic signature of Laura ta Crowdy , PA on 06/21/2025 at 02:52 PM EST Sign off status: Pending * Provider: EMIGDIO Harrell Date: 0 03/15/2025 Generated for Kingston calderon/Nik/Taryn on: 1 08/22/2024 02:52 PM EST
--- OUTSIDE RECORDS SUMMARY | 2025-04-26 10:31 | XMS_ITS ---
Author Organization [facility] Address [address] [place] [address] Phone Care Team Providers Care Ribbon Hand Name Role Phone Glenny Stratton MD Unavailable [ ] Conditions or Problems No information available. Medications Medication Instructions Start Date Stop Date Generic Name NDC Provider MELOXICAM 7.5 MG TABS meloxicam 13929174770 Ibis Sandi FLORASTOR 250 MG CAPS saccharomyces boulardii 52849879699 Ibis Sandi PRESERVISION AREDS CAPS vitamins a,c,g-pywg-iwtgm r 71399925222 Ibis Sandi ZYRTEC ALLERGY 10 MG TABS cetirizine 74098762529 Ibis Cook AZELASTINE HCL 0.1 % SOLN azelastine 05998351343 Ibis Cook FLUTICASONE PROPIONATE 50 MCG/ACT SUSP fluticasone propionate 26441053956 Ibis Sandi BRIMONIDINE TARTRATE 0.2 % SOLN brimonidine 02001008765 Ibis Sandi KETOROLAC TROMETHAMINE 0.5 % SOLN ketorolac 18377109345 Ibis Cook DORZOLAMIDE HCL 2 % SOLN dorzolamide 98437653905 Ibis Sandi Medications Administered No information available. Allergies, Adverse Reactions, Alerts No information available. Results Date Name Value Unit Range Flag Description Office Visit: Office Visit: 11 FALLRSKASSES yes Fall ris k assessment ORALTOBACUSE Never Tobacco smoking status SMOK STATUS Former smoker Tob acco smoking status MEDS REVIEW Done Documenta tion of current medications (procedure) Plan of Care No information available. Procedures No information available. Vital Signs Date Name Value Unit Description BMI (Body Mass Index) 22.36 kg/m2 Bod y Mass Index (Ratio) Body Temperature 97.8 [degF] temperat ure E&M BP Diastolic 80 mm[Hg] blood pressu re, diastolic BP Systolic 118 mm[Hg] blood pressur e, systolic Heart Rate 72 /min pulse rate Height 65 [in_us] height E&M Respiratory Rate 16 /min respirat ory rate E&M Weight Measured 134.4 [lb_av] weight E& M Weight Measured 134.4 [lb_av] weight E& M Immunizations No information available. Advance Directives No information available.
--- OUTSIDE RECORDS SUMMARY | 2025-06-14 14:15 | XMS_ITS | Encounter Summary ---
Author Organization [facility] Address [address] [place] [address] Care Team Providers Care Marble Mechanic Helper Name Role Phone Miles Beavers MD Primary Care Provider + [phone] Reason for Visit * Reason Comments Rheumatoid Arthritis Encounter Details Date Type Department Care Team (Late st Contact Info) Description 06/14/2025 2:15 PM EST Office Visit [facility] RHEUMATOLOGY [address] [phone] Jewel Gibbs MD [address] [phone] Rheumatoid arthritis involving multiple sites with positive rheumatoid factor (Primary Dx); High risk medication use; Immunosuppression due to drug therapy; Osteopenia of multiple sites; History of cervical spinal surgery; NSAID long-term use; Medication monitoring encounter Social History Tobacco Use Types Packs/Day Years Used Date Smoking Tobacco: Former Cigarettes 1 58.5 0 07/06/1965 - 12/18/2001 Smokeless Tobacco: Never Tobacco Cessation:Counseling Given: Not Answered Alcohol Use Standard Drinks/Week Comments Yes 7 (1 standard drink = 0.6 oz pur e alcohol) 1 glass of wine daily [facility] Utilities Answer Date Recorded In the past 12 months has [employer], gas, oil, or water [facility] threatened to shut off services in your [...] and heating? Not hard at all 01/20/2024 [facility] Occupat ional [facility] - Occupational Stress [...] GED or equivalent No 01/20/2024 Preferred Language Thai 01/20/2024 PHQ-2 Answer Date Recorded Retired PHQ-9: [...] Sign Reading Time Taken Comments Blood Pressure 122/68 06/14/2025 1:57 PM EST Pulse 72 06/14/2025 1:57 PM EST Temperature 36.4 C (97.6 F) 06/14/2025 1:57 PM EST Respiratory Rate - - Oxygen Saturation - - Inhaled Oxygen Concentration - - Weight 63.4 kg (139 lb 11.2 oz) 06/14/2025 1:57 PM EST Height 172.7 cm (5' 8 ) 06/14/2025 1:57 PM EST Body Mass Index 21.24 06/14/2025 1:57 PM EST documented in this encounter Progress Notes * Jewel Gibbs MD - 06/14/2025 2:00 PM EST Images from the original note were not included. Office Follow Up Date: 06/14/2025 Patient Name: Mimi Hobbs Date of : [...] She previously was following with Rheumatology in [place] and then [place] and moved to [place] in 2023. Rheumatoid markers rheumatoid factor and CCP have been positive. She was Remicade infusions for many years at a dose of 300 mg every 5 weeks along with methotrexateonce weekly. These therapies were stopped 01/26 with fungal pneumonia. She finished treatment for fungal pneumonia summer 2024 and has been discharged from ID She has had prior cervical surgery. She reports history of melanoma leg x2 status post resection. She was evaluated by Cardiology at [facility]. She reports history of COPD and is a former smoker. She reports having osteopenia and had bone density scan in [place]. Interim 04/19/2024: She developed a fungal pneumonia in January and was hospitalized 01/18/2024 through 02/04/2024 and discharged to [facility] re[facility]. Continues on antifungal therapy [...] No swollen joints today. Rarely uses meloxicam. Interim 06/14/2025: She has been doing worse recently with increased triggering in the fingers and numbness in the fingers. Increased aching in her hands wrists elbows shoulders and knees. She thinks she needs to get back on medication for her rheumatoid arthritis. She continues on meloxicam. Has finished antifungal therapy in January 2025 but no longer following with ID. No restrictions placed on her by ID. History of Present Illness Subjective Review of Systems: Review of Systems Constitutional: Positive for fatigue. Negative for chills, fever and unexpected weight loss. HENT: Negative for mouth sores, sinus pressure and sore throat. Eyes: Negative for pain and redness. Respiratory: Positive for cough and shortness of breath. Cardiovascular: Positive for leg swelling. Negative for chest pain. Gastrointestinal: Negative for abdominal pain, blood in stool, diarrhea, nausea, vomiting and GERD. Endocrine: Negative for polydipsia and polyuria. Genitourinary: Negative for dysuria, genital sores and hematuria. Musculoskeletal: Positive for arthralgias, back pain, gait problem, joint swelling, neck pain and neck stiffness. Negative for myalgias. Skin: Positive for dry skin and bruise. Negative for rash. Neurological: Positive for dizziness, light-headedness and numbness. Negative for seizures, weakness and memory problem. Hematological: Negative for adenopathy. [...] ENDOBRONCHIAL ULTRASOUND; Surgeon: Dinesh Miguel MD; Location: [facility]; Service: Pulmonary; Laterality: N/A; Scope removed with balloon intact. BRONCHOSCOPY 01/2024 CERVICAL SPINE SURGERY X2 SECTION X3 LUNG BIOPSY TONSILLECTOMY Family History: Family History Problem Relation Name Age of Onset Arthritis Mother Alzheimer's disease [...] date: 07/06/1965 Quit date: 12/18/2001 Years since quittin.5 Smokeless tobacco: Never Vaping Use Vaping status: Never Used Substance and Sexual Activity Alcohol use: Yes Alcohol/week: 7.0 standard drinks of alcohol Types: 7 Glasses of wine per week Comment: 1 glass of wine daily Drug use: Never Sexual activity: Not Currently Partners: Male Medications: Current Outpatient Medications: Azelastine HCl 137 MCG/SPRAY solution, 2 spray(s) intranasally 2 times a day, Disp: , Rfl: cetirizine (zyrTEC) 10 MG tablet, Take 1 tablet by mouth Daily., Disp: , Rfl: dorzolamide (TRUSOPT) 2 % ophthalmic solution, apply 1 drop into THE right eye 2 TIMES A DAY, Disp:, Rfl: gabapentin (NEURONTIN) 300 MG capsule, Take 1 capsule by mouth every night at bedtime., Disp: , Rfl: Magnesium Oxide -Mg Supplement 400 (240 Mg) MG tablet, Take 1 tablet by mouth 2 (Two) Times a Day.,Disp: , Rfl: meloxicam (MOBIC) 7.5 MG tablet, Take 1 tablet by mouth 2 (Two) Times a Day As Needed for Mild Pain., Disp: 60 tablet, Rfl: 5 multivitamins-minerals (PRESERVISION AREDS 2) capsule capsule, Take 1 capsule by mouth 2 (Two) Times a Day., Disp: , Rfl: pantoprazole (PROTONIX) 40 MG EC tablet, take 1 tablet by mouth daily, Disp: , Rfl: Probiotic Product (Florajen3) capsule, as directed Orally, Disp: , Rfl: rosuvastatin (CRESTOR) 5 MG tablet, 1 tablet Orally Once a day for 30 day(s), Disp: , Rfl: folic acid (FOLVITE) 1 MG tablet, Take 1 tablet by mouth Daily., Disp: 90 tablet, Rfl: 3 methotrexate 2.5 MG tablet, Take 6 tablets by mouth 1 (One) Time Per Week. once every week, Disp: 72 tablet, Rfl: 0 Allergies: No Known Allergies Objective Vital Signs: Vitals: 06/14/25 1357 BP: 122/68 BP Location: Left arm Patient Position: Sitting Cuff Size: Adult Pulse: 72 Temp: 97.6 ??F (36.4 ??C) Weight: 63.4 kg (139 lb 11.2 oz) Height: 172.7 cm (68 ) PainSc: 8 Body mass index is 21.24 kg/m??. Physical Exam: Physical Exam MUSCULOSKELETAL: No peripheral synovitis. Tender throughout the PIP MCP joints diffusely bilateral hands. Tender bilateral wrist elbows and shoulders without soft tissue swelling. Tender bilateral knees No rheumatoid nodules or tophi. Scattered Heberden Berta's nodes hands. 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 Cruz ([place], [place]) Moved from [place] to [place] 08/29; poodle Serology: +RF 64, +++CCP>250 (08/24/23) -Hand xray 01/11/25: 1.Joint space narrowing at the interphalangeal joints and MCP joints bilaterally. 2.Erosion at the second MCP joint on the right. -Current therapy: Methotrexate restarted 06/14/2025, meloxicam -Prior therapy: Remicade 300 mg (5mg/kg) q 5 weeks [facility] stopped 01/26 with fungal pneumonia hospitalized 01/18/24-02/04/24 (ID Dr Stratton, pulm Dr Miguel); positive urine histo and blasto antigens High worsening disease activity from RA off methotrexate and Remicade both stopped with fungal pneumonia 01/26 sjc0 tjc 28 patient global 7.5. Provider Global 7.5. CDAI 43 -Remicade last infused 01/04/2024 - We have been holding methotrexate and Remicade in light of fungal pneumonia (positive urine histoand blasto antigens) dx during hospitalization 01/17-02/04/24 She finished antifungal per ID Dr Stratton around 01/23/2025. No longer following with ID Clinically improving and feeling significantly stronger. No cough. No shortness of breath Labs reviewed are stable - Restart methotrexate 15 mg once weekly along with daily folic acid in light of her RA activity - Will try to avoid biologic therapy at this time if we can - Labs ordered for monitoring as below and every 12 weeks for monitoring on methotrexate CBC CMP sed rate CRP - Continue meloxicam 7.5 mg twice daily as needed for OA pain hands neck spine Risks of NSAIDs discussed including GI upset, GI bleeding, renal or hepatic risks and the risk of cardiovascular disease and stroke. Warned patient not to take other NSAIDs including [id number] Return to clinic 3 months with labs at visits Her daughter is with her throughout the visit today -High risk medication use -Immunosuppression due to drug therapy Methotrexate QTB negative and hepatitis panel negative 01/26 Risks of methotrexate discussed and include but [...] 07/08/17 and 07/27/19 and February 2022 in [place] (every other year) Continue calcium vitamin D and weightbearing exercise Latest DEXA 09/01/24 [facility] shows osteopenia right hip femoral neck T- score -1.3, lumbar T-score 0.8 Recommend calcium 1200 mg daily, vitamin D 1000 IU daily and regular weightbearing exercise such aswalking Update bone density every 2 years due September 2026 -History of cervical spinal surgery S/p Cervical fusion 07/2021 Degenerative disc disease spine -Continue as needed NSAID Has done physical therapy -Malignant melanoma s/p removal melanoma leg 2022 with reported good margins. -Chronic obstructive pulmonary disease Former smoker -History of fungal pneumonia 01/26 She finished antifungal therapy itraconazole January [address] Stratton. Has been discharged from ID. improved and stable from a pulmonary standpoint No restrictions placed on her by ID from a medication standpoint -Lung nodule CT chest 04/10/25 1. No significant change in size of the largest right middle lobe nodule measuring 10 mm in size. Similar-appearing medial right middle lobe nodule measuring 8 mm, also unchanged when remeasured using similar measurement technique. 2. Peripheral bronchial wall thickening within the right middle lobe and lingula likely representing bronchitis or peripheral small airway disease. Follows with pulmonary Dr Miguel Assessment & Plan 1. Rheumatoid arthritis involving multiple sites with positive rheumatoid factor 2. High risk medication use 3. Immunosuppression due to drug therapy 4. Osteopenia of multiple sites 5. History of cervical spinal surgery 6. NSAID long-term use 7. Medication monitoring encounter Orders Placed This Encounter Procedures Comprehensive Metabolic Panel CBC Auto Differential C-reactive Protein Sedimentation Rate Rheumatoid Factor Cyclic Citrul Peptide Antibody, IgG / IgA New Medications Ordered This Visit Medications methotrexate 2.5 MG tablet Sig: Take 6 tablets by mouth 1 (One) Time Per Week. once every week Dispense: 72 tablet Refill: 0 folic acid (FOLVITE) 1 MG tablet Sig: Take 1 tablet by mouth Daily. Dispense: 90 tablet Refill: 3 meloxicam (MOBIC) 7.5 MG tablet Sig: Take 1 tablet by mouth 2 (Two) Times a Day As Needed for Mild Pain. Dispense: 60 tablet Refill: 5 Follow Up: Return in about 3 months (around 09/12/2025) for Followup [employer] T[employer]ER. Discussed plan of care in detail with the patient today. Patient verbalized understanding and agrees. I confirm accuracy of unchanged data/findings which have been carried forward from previous visit. I have updated appropriately those that have changed. Jewel Gibbs MD [facility] [place] documented in this encounter Plan of Treatment Upcoming Encounters Date Type Department Care Team (Late st Contact Info) Description 09/18/2025 10:00 AM EDT Office Visit [facility] RHEUMATOLOGY [address] [phone] Gwen Thomas APRN [address] [place] [phone] 10/18/2025 11:15 AM EDT Appointment [facility] [address] [place] [address] 01/10/2026 2:15 PM EDT Office Visit [facility] RHEUMATOLOGY [address] [phone] Jewel Gibbs MD [address] [place] [phone] Scheduled Orders Name Type Priority Associated Diagnoses Orde r Schedule CBC Auto Differential Lab Routine Rheumatoid arthritis involving multiple sites with positive rheumatoid factor High risk medication use Ordered: 06/14/2025 documented as of this encounter Procedures Procedure Name Priority Date/Time Associated Diagnosis Comments RHEUMATOID FACTOR, QUANT Routine 06/14/2025 3:22 PM EST Rheumatoid arthritis involving multiple sites with positive rheumatoid factor High risk medication use CYCLIC CITRUL PEPTIDE ANTIBODY, IGG/IGA Routine 06/14/2025 3:22 PM EST Rheumatoid arthritis involving multiple sites with positive rheumatoid factor High risk medication use SEDIMENTATION RATE Routine 06/14/2025 3: 22 PM EST Rheumatoid arthritis involving multiple sites with positive rheumatoid factor High risk medication use CBC AND DIFFERENTIAL Routine 06/14/2025 3:22 PM EST C-REACTIVE PROTEIN Routine 06/14/2025 3: 22 PM EST Rheumatoid arthritis involving multiple sites with positive rheumatoid factor High risk medication use COMPREHENSIVE METABOLIC PANEL Routine 06/14/2025 3:22 PM EST Rheumatoid arthritis involving multiple sites with positive rheumatoid factor High risk medication use documented in this encounter Results * (ABNORMAL) CBC & Differential (06/14/2025 3:22 PM EST) WBC 9.3 3.4 - 10.8 x10E3/uL [facility] RBC 4.34 3.77 - 5.28 x10E6/uL [facility] Hemoglobin 13.5 11.1 - 15.9 g/dL [facility] Hematocrit 40.9 34.0 - 46.6 % [facility] MCV 94 79 - 97 fL [facility] MCH 31.1 26.6 - 33.0 pg [facility] MCHC 33.0 31.5 - 35.7 g/dL [facility] RDW 13.1 11.7 - 15.4 % [facility] Platelets 217 150 - 450 x10E3/uL [facility] Neutrophil Rel % 63 Not Estab. % [facility] Lymphocyte Rel % 22 Not Estab. % [facility] Monocyte Rel % 6 Not Estab. % [facility] Eosinophil Rel % 8 Not Estab. % [facility] Basophil Rel % 1 Not Estab. % [facility] Neutrophils Absolute 5.9 1.4 - 7.0 x10E3/uL [facility] Lymphocytes Absolute 2.0 0.7 - 3.1 x10E3/uL [facility] Monocytes Absolute 0.6 0.1 - 0.9 x10E3/uL [facility] Eosinophils Absolute 0.7(H) 0.0 - 0.4 x10E3/uL [facility] Basophils Absolute 0.1 0.0 - 0.2 x10E3/uL [facility] Immature Granulocyte Rel % 0 Not Estab. % [facility] Immature Grans Absolute 0.0 0.0 - 0.1 x10E3/uL [facility] 06/14/2025 3:22 PM EST 06/14/2025 Narrative [facility] (AMBULATORY) - 06/15/2025 3:07 PM EST Performed at: [address] [id number] Ion Exchange Operator: Feng Caldwell PhD, Phone: [phone] Patient Fasting: N Jewel Gibbs MD LAB BLOOD ORDERABLES Final Result [facility] (AMBULATORY) [address] [place] [address], [facility] [address] [place] [address], * (ABNORMAL) Cyclic Citrul Peptide Antibody, IgG / IgA (06/14/2025 3:22 PM EST) Pathologist [facility] CCP Antibodies IgG/IgA >250(H) 0 - 19 units [facility] Comment: Negative <20 Weak positive 20 - 39 Moderate positive 40 - 59 Strong positive >59 Blood 06/14/2025 3:22 PM EST 06/14/2025 Narrative [facility] ([facility]ORY) - 06/15/2025 3:07 PM EST Performed at: [address], [place], [place] [id number] Ion Exchange Operator: Feng Caldwell PhD, Phone: [phone] Patient Fasting: N us Jewel Gibbs MD LAB BLOOD ORDERABLES Final Result Performing Organization Address [facility] de Phone Number [facility] (AMBULATORY) [address] [place] [address], [place] [phone] [facility] [address] [place] [address], [place] [phone] * (ABNORMAL) Rheumatoid Factor (06/14/2025 3:22 PM EST) Pathologist [facility] RA Latex Turbid 43.2(H) <14.0 IU/mL [facility] Blood 06/14/2025 3:22 PM EST 06/14/2025 Narrative [facility] (AMBULATORY) - 06/15/2025 3:07 PM EST Performed at: - [address] [id number] Ion Exchange Operator: Feng Caldwell PhD, Phone: [phone] Patient Fasting: N us Jewel Gibbs MD LAB BLOOD ORDERABLES Final Result Performing Organization Address [facility] Co de Phone Number [facility] (AMBULATORY) [address] [place] [address], [place] [phone] [facility] [address] [place] [address], [place] [phone] * Sedimentation Rate (06/14/2025 3:22 PM EST) [facility] Sed Rate 8 0 - 40 mm/hr [facility] Blood 06/14/2025 3:22 PM EST 06/14/2025 Narrative [facility] ([facility]) - 06/15/2025 3:07 PM EST Performed at: - [address] [id number] Ion Exchange Operator: Feng Caldwell PhD, Phone: [phone] Patient Fasting: N us Jewel Gibbs MD LAB BLOOD ORDERABLES Final Result Performing Organization Address City/[facility]/ZIP Co de Phone Number [facility] (AMBULATORY) [address] [place] [address], [facility] [address] [place] [address], * C-reactive Protein (06/14/2025 3:22 PM EST) [facility] C-Reactive Protein <1 0 - 10 mg/L [facility] Blood 06/14/2025 3:22 PM EST 06/14/2025 Narrative [facility] ([facility]) - 06/15/2025 3:07 PM EST Performed at: - [facility] [address] [place] [id number] Ion Exchange Operator: Feng Caldwell PhD, Phone: [phone] Patient Fasting: N us Jewel Gibbs MD LAB BLOOD ORDERABLES Final Result Performing Organization Address City/[facility]/ZIP Co de Phone Number [facility] (AMBULATORY) [address] [place] [address], [facility] [address] [place] [address], * (ABNORMAL) Comprehensive Metabolic Panel (06/14/2025 3:22 PM EST) [facility] Glucose 113(H) 70 - 99 mg/dL [facility] BUN 23 8 - 27 mg/dL [facility] Creatinine 1.35(H) 0.57 - 1.00 mg/dL [facility] EGFR Result 40(L) >59 mL/min/1.7 3 [facility] BUN/Creatinine Ratio 17 12 - 28 [facility] Sodium 142 134 - 144 mmol/L [facility] Potassium 4.4 3.5 - 5.2 mmol/L [facility] Chloride 106 96 - 106 mmol/L [facility] Total CO2 23 20 - 29 mmol/L [facility] Calcium 9.2 8.7 - 10.3 mg/dL [facility] Total Protein 7.0 6.0 - 8.5 g/dL [facility] Albumin 4.4 3.8 - 4.8 g/dL [facility] Globulin 2.6 1.5 - 4.5 g/dL [facility] Total Bilirubin 0.3 0.0 - 1.2 mg/dL [facility] Alkaline Phosphatase 62 49 - 135 IU/L [facility] AST (SGOT) 21 0 - 40 IU/L [facility] ALT (SGPT) 11 0 - 32 IU/L [facility] Blood 06/14/2025 3:22 PM EST 06/14/2025 Narrative [facility] ([facility]) - 06/15/2025 3:07 PM EST Performed at: 01 [facility] [address] [place] [id number] Ion Exchange Operator: Feng Caldwell PhD, Phone: [phone] Patient Fasting: N us Jewel Gibbs MD LAB BLOOD ORDERABLES Final Result Performing Organization Address City/State/[facility] Co de Phone Number [facility] ([facility]) [address] [place] [address], [facility] [address] [place] [address], documented in this encounter Visit Diagnoses Diagnosis Rheumatoid arthritis involving multiple sites with positive rheumatoid factor- Primary High risk medication use Immunosuppression due to drug therapy Osteopenia of multiple sites History of cervical spinal surgery NSAID long-term use Encounter for long-term (current) use of non-steroidal anti-inflammatories Medication monitoring encounter Encounter for therapeutic drug monitoring documented in this encounter Additional Health Concerns Infection Onset Date Last Indicated Resolved Time Tuberculosis (rule out) 01/27/2024 01/27/2024 documented as of this encounter Care Teams Marble Mechanic Helper Relationship Specialty Start Date End Date Miles Beavers MD [address] [place] [facility] [address] [place] [address] PCP - General Family Medicine 12/10/23 documented as of this encounter
--- NOTE | 2025-06-21 13:45 | CA_ITS ---
APPROVED REPORT EXAM: Comprehensive 2D, Doppler, and color-flow Echocardiogram Pie Maker: Veronica De Paz RT(R) Ht: 5 ft 7 in Wt: 137lbs BSA: 1.72 BP: 123/57 mmHg Indications: dyspnea, CAD 2D Dimensions EF AP4 70.20 % GL Strain -14.4 % M-Mode Dimensions RVDd 2.49 cm (0.9-2.6) LA Diam 2.65 cm (1.9-4.0) LVDd 4.41 cm (3.5-5.7) LVDs 3.06 cm (3.5-5.7) IVSd 0.85 cm (0.6-1.1) PWd 0.93 cm (0.6-1.1) EF (Teich) 58.40% FS 30.60% EDV (Teich) 88.20 mL ESV (Teich) 36.70 mL LV Diastology E Decel Time 150 (160-240 msec) E/A Ratio 0.5 Mitral Valve MV E Max Cal. 41.0 (40-130 cm/s) MV A Velocity 75.0 (40-130 cm/s) E/A Ratio 0.54 MV PHT 44.0 ms Tricuspid Valve TR P. Velocity 237.00 cm/s Left Ventricle The left ventricle is normal size. Left ventricular systolic function is normal. The left ventricular ejection fraction is within the normal range. There is increased left ventricular wall thickness. There is normal LV segmental wall motion. Transmitral Doppler flow pattern suggests impaired LV relaxation. LVEF is 55% Right Ventricle The right ventricle is normal size. The right ventricular systolic function is normal. Atria The left atrium is mildly dilated. The right atrium size is normal. There is no color Doppler evidence of interatrial shunt. Aortic Valve The aortic valve is mildly thickened. There is no hemodynamically significant aortic valvular stenosis. Mild aortic regurgitation is present. Mitral Valve The mitral valve is normal in structure. No evidence of mitral valve stenosis. Mild mitral regurgitation is present. Tricuspid Valve The tricuspid valve leaflets are thin and pliable. Mild tricuspid regurgitation. RVSP is 20-25 mmHg. Pulmonic Valve The pulmonary valve is grossly normal in structure. Trace pulmonic valve regurgitation is present. Great Vessels The aortic root is normal in size. IVC is normal in size and collapses >50% with inspiration. Pericardium There is no pericardial effusion. Other Information Study Quality: Fair Conclusion Normal biventricular systolic function. Mild LA dilation. Mild AI, mild MR. Electronically signed by : Enedelia Fan MD 07/02/2025 13:16:39
--- OUTSIDE RECORDS SUMMARY | 2025-06-21 14:51 | XMS_ITS | Encounter Summary ---
[facility] Organization [facility] Address [address] [place] [address] Care Team Providers Care Rubber Goods Supervisor Name Role Phone Miles Beavers MD Primary Care Provider + [phone] Encounter Details Date Type Department Care Team (Late st Contact Info) Description 03/22/2025 Results Follow-Up [facility] RHEUMATOLOGY [address] [phone] Jewel Gibbs MD [address] [phone] Social History Tobacco Use Types Packs/Day Years Used Date Smoking Tobacco: Former Cigarettes 1 58.5 0 07/06/1965 - 12/18/2001 Smokeless Tobacco: Never Alcohol Use Standard Drinks/Week Comments Yes 7 (1 standard drink = 0.6 oz pur e alcohol) 1 glass of wine daily [facility] Utilities Answer Date Recorded In the past [address], gas, oil, or water [employer] threatened to shut off services in your [...] and heating? Not hard at all 01/20/2024 [facility]at ional Health - Occupational Stress [...] GED or equivalent No 01/20/2024 Preferred Language Singaporean 01/20/2024 PHQ-2 Answer Date Recorded Retired PHQ-9: [...] Description 09/18/2025 10:00 AM EDT Office Visit [facility] RHEUMATOLOGY [address] [place] [phone] Gwen Thomas APRN [address] [place] [address] 10/18/2025 11:15 AM EDT Appointment [facility] AT [address] [phone] 01/10/2026 2:15 PM EDT Office Visit [facility] RHEUMATOLOGY [address] [place] [phone] Jewel Gibbs MD [address] [place] [phone] documented as of this encounter Visit Diagnoses Not on filedocumented in this encounter Additional Health Concerns Infection Onset Date Last Indicated Resolved Time Tuberculosis (rule out) 01/27/2024 01/27/2024 documented as of this encounter Care Teams Rubber Goods Supervisor Relationship Specialty Start Date End Date Miles Beavers MD 1210 [facility] [address] [facility] [address] [place] [address] PCP - General Family Medicine 12/10/23 documented as of this encounter
--- OUTSIDE RECORDS SUMMARY | 2025-06-21 14:51 | XMS_ITS | Encounter Summary ---
[facility] Address [address] [place] [address] Care Team Providers Care Last Putter Away Name Role Phone Miles Beavers MD Primary Care Provider + [phone] Encounter Details Date Type Department Care Team (Late st Contact Info) Description 05/15/2025 Telephone [facility] [address] [phone] Moises Gibbs MD [address] [phone] Social History Tobacco Use Types Packs/Day Years Used Date Smoking Tobacco: Former Cigarettes 1 58.5 0 07/06/1965 - 12/18/2001 Smokeless Tobacco: Never Alcohol Use Standard Drinks/Week Comments Yes 7 (1 standard drink = 0.6 oz pur e alcohol) 1 glass of wine daily [facility] Utilities Answer Date Recorded In the past 12 months has [employer], gas, oil, or water [employer] threatened to shut off services in your [...] and heating? Not hard at all 01/20/2024 [facility] [place] [facility] Occupat ional Health - Occupational Stress [...] GED or equivalent No 01/20/2024 Preferred Language Zambian 01/20/2024 PHQ-2 Answer Date Recorded Retired PHQ-9: Brief Depression Severity Measure Score 0 01/20/2024 Comments Unknown Sex and Gender Information Value Date Recorded Sex Assigned at Female 01/05/2025 10:06 AM EDT Legal Sex Female 11:19 AM EDT Gender Identity Not on file Sexual Orientation Straight 01/05/2025 10 :06 AM EDT documented as of this encounter Progress Notes * Moises Gibbs MD - 05/15/2025 1:18 PM ESTAddended by: MOISES GIBBS on: 05/15/2025 01:18 PM Modules accepted: Orders documented in this encounter Miscellaneous Notes * Telephone Encounter - Kendra Conti MA - 05/15/2025 2:38 PM EST Pt notified that rx had been sent. -STEVIE Mendoza * Telephone Encounter - Kendra Conti MA - 05/15/2025 9:29 AM EST I spoke with pt. She said that her flare up started on Thursday. She said she has pain/swelling/redness in her (L) hand/wrist and said that her wrist has a lump on it. She is unable to get her rings on. The only thing she has taken is her regular medications. She would like a steroid taper or something sent in for this to [facility]. Please advise. -STEVIE Mendoza * Telephone Encounter - Jesika Noland RegSched Rep - 05/15/2025 9:18 AM EST Pt is having a flare in her hands would like to know if she can have something sent in to the pharmacy documented in this encounter Plan of Treatment Upcoming Encounters Date Type Department Care Team (Late st Contact Info) Description 09/18/2025 10:00 AM EDT Office Visit [facility] RHEUMATOLOGY [address] [phone] Gwen Thomas APRN [address] [address] 10/18/2025 11:15 AM EDT Appointment [facility] AT [address] [phone] 01/10/2026 2:15 PM EDT Office Visit [facility] RHEUM[facility] [address] [phone] Moises Gibbs MD [address] [address] documented as of this encounter Visit Diagnoses Not on filedocumented in this encounter Additional Health Concerns Infection Onset Date Last Indicated Resolved Time Tuberculosis (rule out) 01/27/2024 01/27/2024 documented as of this encounter Care Teams Last Putter Away Relationship Specialty Start Date End Date Miles Beavers MD 1210 [facility] [address] [place] [address] PCP - General Family Medicine 12/10/23 documented as of this encounter
--- OUTSIDE RECORDS SUMMARY | 2025-06-21 14:51 | XMS_ITS | Encounter Summary ---
Author Organization [facility] Address [address] [place] [address] Care Team Providers Care Social Sciences Lecturer Name Role Phone Miles Beavers MD Primary Care Provider + [phone] Reason for Visit * Reason Onset Date Comments Appointment 05/23/2025 Encounter Details Date Type Department Care Team (Late st Contact Info) Description 05/23/2025 Telephone [facility] RHEUMATOLOGY 330 [facility] [address] [place] [address] Mar Mckeon, CHERELLE 330 [facility] [address] [place], [place] [phone] Appointment Social History Tobacco Use Types Packs/Day Years Used Date Smoking Tobacco: Former Cigarettes 1 58.5 0 07/06/1965 - 12/18/2001 Smokeless Tobacco: Never Alcohol Use Standard Drinks/Week Comments Yes 7 (1 standard drink = 0.6 oz pur e alcohol) 1 glass of wine daily [facility] Utilities Answer Date Recorded In the past 12 months has [employer], gas, oil, or water [employer] threatened to shut off services in your [...] and heating? Not hard at all 01/20/2024 [facility] - Occupational Stress Questionnaire Answer Date Recorded [...] GED or equivalent No 01/20/2024 Preferred Language Ghanaian 01/20/2024 PHQ-2 Answer Date Recorded Retired PHQ-9: Brief Depression Severity Measure Score 0 01/20/2024 Comments Unknown Sex and Gender Information Value Date Recorded Sex Assigned at Female 01/05/2025 10:06 AM EDT Legal Sex Female 11:19 AM EDT Gender Identity Not on file Sexual Orientation Straight 01/05/2025 10 :06 AM EDT documented as of this encounter Miscellaneous Notes * Telephone Encounter - Laurent Lebron RegSched Rep - 05/23/2025 1:35 PM EST LM FOR PT NOTIFYING HER THAT WE HAD TO SWITCH HER APPT TO VIRTUAL DUE TO PROVIDER FEELING UNWELL. ADVISED TO CALL BACK IF THERE ARE ISSUES OR CONCERNS. SENDING LETTER THAT HAS STEP BY STEP HOW TO GET FROM [facility] HOMESCREEN TO [facility] WAITING ROOM. HUB OK TO RELAY. -ZC documented in this encounter Plan of Treatment Upcoming Encounters Date Type Department Care Team (Late st Contact Info) Description 09/18/2025 10:00 AM EDT Office Visit [facility] RHEUMATOLOGY [address] [place] [phone] Gwen Thomas APRN 330 [facility] [address] [address] 10/18/2025 11:15 AM EDT Appointment [facility] AT [address] [phone] 01/10/2026 2:15 PM EDT Office Visit [facility] RHEUM[facility] [address] [phone] Jewel Gibbs MD [address] [address] documented as of this encounter Visit Diagnoses Not on filedocumented in this encounter Additional Health Concerns Infection Onset Date Last Indicated Resolved Time Tuberculosis (rule out) 01/27/2024 01/27/2024 documented as of this encounter Care Teams Social Sciences Lecturer Relationship Specialty Start Date End Date Miles Beavers MD 1210 [facility] 36 E [facility] 2 [place] [address] PCP - General Family Medicine 12/10/23 documented as of this encounter
--- OUTSIDE RECORDS SUMMARY | 2025-06-21 14:52 | XMS_ITS | Patient Health Record ---
Author Organization [facility] Address [address] [place] [address] Care Team Providers Care Industrial Boilermaker Name Role Phone Miriam Nye [facility] Primary Care Provider Kaela hoover Migration, Provider Unavailable Unavailable Allergies No Known Allergies Reason For Referral No Information Medications Medication SIG (Take, Route, Frequency, Duration) Notes Start Date End Date Status prednisoLONE Acetate 1 % 1 gtt in each affected eye 4 times a day Active Omeprazole Magnesium 20 MG 1 tab(s) orally once a day Active Rheumate - 1 cap(s) orally once a day Active Remicade 100 MG as directed intravenously every 5 weeks Active Allergy Relief 10 MG 1 tab(s) orally once a day Active Trelegy Ellipta 100-62.5-25 MCG/ACT 1 puff(s) inhaled once a day Active Albuterol Sulfate 108 (90 Base) MCG/ACT 2 puff(s) inhaled every 6 hours Active Rosuvastatin Calcium 5 MG 1 tab(s) orally once a day Active Famotidine 20 MG 1 tab(s) orally once every other day Active Vitamin D3 Maximum Strength 125 MCG (5000 UT) 1 tab(s) orally once a day Active Azelastine HCl 137 MCG/SPRAY 2 spray(s) intranasally 2 times a day Active VARIOUS OTC VITAMINS calcium citrate + D3 *Please review for potential replacement for e-prescription and drug interaction check* *Reorder from [employer] for eRx and Interaction Alerts* Active Ketorolac Tromethamine 0.4 % 1 gtt in each affected eye 2 times a day Active Gabapentin 300 MG 1 cap(s) orally once a day Active Xatmep 2.5 MG/ML as directed subcutaneously once a week Active Problems Problem Type SNOMED Code ICD Code Onset Dates Problem Status W/U Status Risk Notes Problem Orthostatic hypotension (74014328) Orthostatic hypotension (I95.1) Active confirmed doing well, I see no ongoing role in her care for a neurologist as PCP and cardio have the situation well in hand Plan Of Treatment No Information Medical (General) History Medical History History ICD Code Rheumatoid arthritis Colon cancer Melanoma Hyperlipidemia Surgical History Surgery Date(Month/Year) Tonsillectomy/adenoidectomy C section x 3 Lung biopsy Cataract surgery Retina surgery C Spine surgery x 2
--- OUTSIDE RECORDS SUMMARY | 2025-06-21 14:52 | XMS_ITS | Encounter Summary ---
Author Organization [facility] Address [address] [place] [address] Care Team Providers Care Crystal Grinder Name Role Phone Miles Beavers MD Primary Care Provider + [phone] Encounter Details Date Type Department Care Team (Latest Contact Info) Description 06/14/2025 Travel Social History Tobacco Use Types Packs/Day Years Used Date Smoking Tobacco: Former Cigarettes 1 58.5 0 07/06/1965 - 12/18/2001 Smokeless Tobacco: Never Alcohol Use Standard Drinks/Week Comments Yes 7 (1 standard drink = 0.6 oz pur e alcohol) 1 glass of wine daily [facility] Utilities Answer Date Recorded In the past 12 months has [employer], gas, oil, or water company threatened [...] and heating? Not hard at all 01/20/2024 [facility] [place] of Occupat ional Health - Occupational Stress [...] GED or equivalent No 01/20/2024 Preferred Language South Korean 01/20/2024 PHQ-2 Answer Date Recorded Retired PHQ-9: [...] Description 09/18/2025 10:00 AM EDT Office Visit [facility] RHEUMATOLOGY [address] [phone] Gwen Thomas APRN [address] [address] 10/18/2025 11:15 AM EDT Appointment [facility] AT [address] [phone] 01/10/2026 2:15 PM EDT Office Visit [facility] RHEUMATOLOGY [address] [phone] Jewel Gibbs MD [address] [address] documented as of this encounter Visit Diagnoses Not on filedocumented in this encounter Additional Health Concerns Infection Onset Date Last Indicated Resolved Time Tuberculosis (rule out) 01/27/2024 01/27/2024 documented as of this encounter Care Teams Crystal Grinder Relationship Specialty Start Date End Date Miles Beavers MD 1210 [facility] [address] [place] [address] PCP - General Family Medicine 12/10/23 documented as of this encounter
--- OUTSIDE RECORDS SUMMARY | 2025-06-21 14:52 | XMS_ITS | Patient Health Record ---
[facility] [address] [place] [phone] Care Team Providers Care Enrollment Clerk Name Role Phone Miles Beavers Unavailable [phone] Ruma Castro Unavailable [phone] Allergies No Known Allergies Results Component Value Reference Range Notes TSH Reviewed date:02/23/2025 10:19:58 AM Interpretation:see 02/22/2025 Performing Lab: Notes/Report: see 02/22/2025 CMP Reviewed date:02/23/2025 10:20:10 AM Interpretation:see 02/22/2025 Performing Lab: Notes/Report: see 02/22/2025 lipid profile Reviewed date:02/23/2025 10:20:20 AM Interpretation:see 02/22/2025 Performing Lab: Notes/Report: see 02/22/2025 CBC Reviewed date:02/23/2025 10:20:31 AM Interpretation:see 02/22/2025 Performing Lab: Notes/Report: see 02/22/2025 Influenza Screen (in house) Reviewed date:08/08/2024 03:46:00 [...] PM Interpretation: Performing Lab: Notes/Report: Result: Neg H-TSH Reviewed date:02/28/2025 11:16:25 AM Interpretation:Normal Performing Lab: Notes/Report: SHARE CMP RESULTS WITH MOISES FREY MD [id number] TSH 3.66 0.465-4.68 uIU/mL H-CBC Reviewed date:02/28/2025 11:16:25 AM Interpretation:mch 31, mpv 10.5 Performing Lab: Notes/Report: SHARE RESULTS WITH MOISES FREY MD [id number] WBC 8.7 4.8-10.8 K/mm3 RBC 4.48 4.20-5.40 M/mm3 HGB 14.0 12.2-16.2 g/dL HCT 42.9 37.0-47.0 % MCV 95.8 81-99 fl MCH 31.3 27.0-31.2 pg MCHC 32.6 31.8-35.4 g/dL RDW-SD 49.6 RDW 14.0 11.5-17.5 % PLT 215 142-424 K/mm3 MPV 10.5 7.4-10.4 fl NE% 61.6 37.0-80.0 % LY% 19.6 10-50 % MO% 6.4 1.7-9.3 % EO% 10.9 0.1-12.0 % BA% 1.2 0.1-2.0 % NRBC% 0 IG% 0.3 NE# 5.4 1.8-7.8 K/mm3 LY# 1.7 0.7-4.5 K/mm3 MO# 0.6 0.1-1.0 K/mm3 EO# 1.0 0.0-0.4 Kmm3 BA# 0.1 0-0.2 K/mm3 NRBC# 0 IG# 0.03 H-Lipid Panel Reviewed date:02/28/2025 11:16:25 AM Interpretation:dldl 58, hdl 105 Performing Lab: Notes/Report: SHARE CMP RESULTS WITH MOISES FREY MD [id number] Patient Fasting? Y TRIG 80 30-150 mg/dl CHOL 195 140-200 mg/dl DLDL 57.69 100-129 mg/dL VLDL 16 0-40 mg/dL HDL 105 40-60 mg/dl CHLHDL 1.9 1-3.5 H-CMP Reviewed date:02/28/2025 11:16:25 AM Interpretation:bun 20 Performing Lab: Notes/Report: SHARE CMP RESULTS WITH MOISES FREY MD [id number] NA 142 136-145 mmol/L K 4.4 3.5-5.1 mmoL/L CL 107 98-107 mmol/L CO2 25 22.0-30.0 mmol/L GAP 14.4 5-15 mEq/L BUN 20 7-17 mg/dl CREATT 0.90 0.52-1.04 mg/dl GFRAA 73 >60 ML/MIN EGFR 61 >60 ml/min GLU 77 74-100 mg/dl CA 9.8 8.4-10.2 mg/dl BILIT 0.5 0.2-1.3 mg/dl AST 33 14-36 U/L ALT 16 12-78 U/L TP 7.6 6.3-8.2 g/dl ALB 4.5 3.5-5.0 g/dl GLOB 3.1 1.3-3.2 g/dL AGRATIO 1.5 1.1-1.8 ALP 75 38-126 U/L Reason For Referral Diagnosis 1 Ingrown toenail (L60 .0) Referral Organization [facility] Referring Provider First Name Miles Referring Provider Last Name Ruthann Referring Provider Speciality [facility] Referred Provider Specialty Podiatry General Notes Neela Alfonso 2024 02:36:02 PM > faxed to [facility] Podiatry Referral Priority Routine Medications Medication SIG (Take, Route, Frequency, Duration) Notes Start Date End Date Status Magnesium Oxide -Mg Supplement 400 (240 Mg) MG 1 tablet with food Orally Twice a day; Duration: 90 days Active Pantoprazole Sodium 40 mg TAKE ONE TABLE T BY MOUTH ONCE A DAY; Duration: 90 Active Gabapentin 300 MG 1 capsule Orally Onc e a day; Duration: 90 days 03/28/2025 Active Voriconazole 200 MG 1 tablet 1 hour befo re or 1 hour after meals Orally every 12 hrs Active Azelastine HCl 137 MCG/SPRAY 2 puffs (1 spray in each nostril) Nasally Twice a day; Duration: 30 days 02/09/2025 Active Fluticasone Propionate 50 MCG/ACT 1 spray in each nostril Nasally Twice a day; Duration: 30 days 02/09/2025 Active Rosuvastatin Calcium 5 MG 1 tablet Orall y Once a day; Duration: 30 days Active Florajen3 - as directed Orally Active Problems Problem Type SNOMED Code ICD Code Onset Dates Problem Status W/U Status Risk Notes Problem Lymphedema (16710240) Lymphedema (I89.0) Active confirmed Problem History of malignant melanoma of the skin (531336802031) Hx of melanoma of skin (Z85.820) Active confirmed Problem Pure hypercholesterolemia (551889429) Pure hypercholesterolemia (E78.00) Active confirmed Problem Impairment of balanc e (576932473) Balance problem (R26.89) Active confirmed Problem Cervical arthritis (disorder) (927655605) 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) Active confirmed Problem Gastroesophageal reflux disease (637053975) Gastroesophageal reflux disease, unspecified whether esophagitis present (K21.9) Active confirmed Problem Rheumatoid arthritis (14545645) Rheumatoid arthritis, involving unspecified site, unspecified whether rheumatoid factor present (M06.9) Active confirmed Problem 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 Vital Signs Heart Rate 94 /min 12/21/2024 Blood pressure diastolic 72 mm Hg 12/21/2024 Height 67 in 12/21/2024 Blood pressure systolic 122 mm Hg 12/21/2024 Weight 128 lbs 12/21/2024 BMI 20.05 kg/m2 12/21/2024 Encounters Encounter Location Date Provider Diagnosis [facility] [address] [place] [id number] 06/22/2024 Miles Canvas Lymphedema I89.0 and Gastroesophageal reflux disease, unspecified whether esophagitis present K21.9 [facility] [address] [place], [place] [id number] 08/08/2024 Miles Canvas Acute URI J06.9 [facility] [address] [place] [id number] 12/21/2024 Miles Canvas Pure hypercholestero lemia E78.00 ; Peripheral edema R60.0 ; Gastroesophageal reflux disease, unspecified whether esophagitis present K21.9 ; Long-term use of high-risk medication Z79.899 ; Rheumatoid arthritis, involving unspecified site, unspecified whether rheumatoid factor present M06.9 and BMI 20.0-20.9, adult Z68.20 [facility] [address] [place], [place] [id number] 06/28/2024 Miles Canvas Cervical radiculopat hy M54.12 [facility] [address] [place], [place] [id number] 07/21/2024 Miles Canvas [facility] [address] [place], [place] [id number] 08/12/2024 Miles Canvas [facility] [address] [place], [place] [id number] 09/27/2024 Miles Canvas Cervical radiculopat hy M54.12 [facility] [address] [place], [place] [id number] 02/07/2025 Miles Canvas [facility] [address] [place] [id number] 02/08/2025 Miles Canvas [facility] [address] [place] [id number] 02/28/2025 Miles Canvas [facility] [address] [place], [place] [id number] 03/14/2025 Miles Canvas [facility] [address] [place], [place] [id number] 03/28/2025 Miles Canvas Cervical radiculopat hy M54.12 [facility] [address] [place], [place] [id number] 06/21/2025 Miles Canvas Assessments Encounter Date Diagnosis (ICD Code) Assessment [...] edema (ICD-10 - R60.0) Compression stockings recommended 03/28/2025 Cervical radiculopat hy (ICD-10 - M54.12) 12/21/2024 Gastroesophageal ref lux disease, unspecified whether esophagitis present (ICD-10 - K21.9) 12/21/2024 Long-term use of high-risk medication (ICD-10 - Z79.899) 12/21/2024 Rheumatoid arthritis , involving unspecified site, unspecified whether rheumatoid factor present (ICD-10 - M06.9) 12/21/2024 BMI 20.0-20.9, adult (ICD-10 - Z68.20) Plan Of Treatment Next Appt Details Provider Name:Miles Quoc cormier, 06/21/2025 02:32:00 PM, [facility] [address] [facility], [address], [place], [place], [id number], Provider Name:Miles Quoc cormier, 06/23/2025 11:00:00 AM, [address] [facility], [address], [place], [place], [id number], Insurance Providers Payer Name Payer Address Payer Phone Subscriber Number Group Number Insured Name Patient Relationship to Insured Coverage Start Date Coverage End Date MEDICARE PART B [address] [address] [place] [address] [phone] [id number] NATALIE GIVENS Self - patient is the insured [employer] [address] [address] [place] [id number] NATALIE GIVENS Self - patient is the insured Medical (General) History Medical History History ICD Code Asthma Hyperlipidemia Allergic Rhinitis Rheumatoid Arthritis Melanoma hypotension Esophageal reflux histoplasmosis, Dx: January 2024 COPD Surgical History Surgery Date(Month/Year) Tonsilectomy 1950 03/10/1967 10/21/1968 01/02/1971 Melanoma Removal 2022 Hospitalization History Reason Date(Month/Year) Histoplasmosis, treated at [facility] 02/2024
--- OUTSIDE RECORDS SUMMARY | 2025-06-21 14:52 | XMS_ITS | Encounter Summary ---
[facility] Address [address] [place] [address] Care Team Providers Care Boom Cat Operator Name Role Phone Miles Beavers MD Primary Care Provider + [phone] Encounter Details Date Type Department Care Team (Late st Contact Info) Description 06/15/2025 Results Follow-Up [facility] RHEUMATOLOGY [address] [phone] Jewel Gibbs MD [address] [phone] Social History Tobacco Use Types Packs/Day Years Used Date Smoking Tobacco: Former Cigarettes 1 58.5 0 07/06/1965 - 12/18/2001 Smokeless Tobacco: Never Alcohol Use Standard Drinks/Week Comments Yes 7 (1 standard drink = 0.6 oz pur e alcohol) 1 glass of wine daily [facility] Utilities Answer Date Recorded In the past 12 months has [employer], gas, oil, or water [place] threatened to shut off services in your [...] and heating? Not hard at all 01/20/2024 [facility] of Occupat ional Health - Occupational Stress [...] GED or equivalent No 01/20/2024 Preferred Language Ivorian 01/20/2024 PHQ-2 Answer Date Recorded Retired PHQ-9: [...] Description 09/18/2025 10:00 AM EDT Office Visit [facility] RHEUMATOLOGY [address] [place] [phone] Gwen Thomas APRN [address] [place] [address] 10/18/2025 11:15 AM EDT Appointment [facility] AT [address] [phone] 01/10/2026 2:15 PM EDT Office Visit [facility] RHEUMATOLOGY [address] [place] [phone] Jewel Gibbs MD [address] [place] [phone] documented as of this encounter Visit Diagnoses Not on filedocumented in this encounter Additional Health Concerns Infection Onset Date Last Indicated Resolved Time Tuberculosis (rule out) 01/27/2024 01/27/2024 documented as of this encounter Care Teams Boom Cat Operator Relationship Specialty Start Date End Date Miles Beavers MD 1210 [facility] [address] [facility] [address] [place] [address] PCP - General Family Medicine 12/10/23 documented as of this encounter
--- OUTSIDE RECORDS SUMMARY | 2025-06-21 14:53 | XMS_ITS | Clinical Summary ---
Author Organization [facility] Address [address] [place] [address] Care Team Providers Care Chemical Dependency Attendant Name Role Phone Miles Beavers MD Primary Care Provider + [phone] Allergies No known active allergies Medications gabapentin (NEURONTIN) 300 MG capsule Take 1 capsule by mouth every night at bedtime. Active Magnesium Oxide -Mg Supplement 400 (240 Mg) MG tablet Take 1 tablet by mouth 2 (Two) Times a Day. 03/17/20 24 Active pantoprazole (PROTONIX) 40 MG EC tablet take 1 tablet by mouth daily 03/17/20 24 Active Azelastine HCl 137 MCG/SPRAY solution 2 spray(s) intranasally 2 times a day Active Probiotic Product (Florajen3) capsule as directed Orally Active rosuvastatin (CRESTOR) 5 MG tablet 1 tablet Orally Once a day for 30 day(s) Active multivitamins- minerals (PRESERVISION AREDS 2) capsule capsule Take 1 capsule by mouth 2 (Two) Times a Day. Active dorzolamide (TRUSOPT) 2 % ophthalmic solution apply 1 drop into THE right eye 2 TIMES A DAY 02/25/20 25 Active cetirizine (zyrTEC) 10 MG tablet Take 1 tablet by mouth Daily. Active methotrexate 2.5 MG tablet Take 6 tablets by mouth 1 (One) Time Per Week. once every week 72 tablet 06/14/20 25 Active folic acid (FOLVITE) 1 MG tablet Take 1 tablet by mouth Daily. 90 tablet 3 06/14/20 25 Active meloxicam (MOBIC) 7.5 MG tablet Take 1 tablet by mouth 2 (Two) Times a Day As Needed for Mild Pain. 60 tablet 5 06/14/20 25 Active meloxicam (MOBIC) 7.5 MG tablet Take 1 tablet by mouth 2 (Two) Times a Day As Needed for Mild Pain. 60 tablet 5 02/02/20 25 025 Discontinu ed(Reorder ) predniSONE (DELTASONE) 5 MG tablet Take 4 tablets by mouth Every Morning for 3 days, THEN 3 tablets Every Morning for 3 days, THEN 2 tablets Every Morning for 3 days, THEN 1 tablet Every Morning for 3 days. Take 4 tablets every morning for 3 days, 3 tablets every morning for 3 days, 2 tablets every morning for 3 day, 1 tablet every morning for 3 days. 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 Cruz ([place], [place]) Moved from [place] to [place] 08/29; poodle +RF 64, +++CCP>250 (08/24/23) Current: Methotrexate, Remicade infusion 300 mg (5mg/kg) every 5 weeks [facility] Low disease activity on methotrexate and Remicade. sjc0 tjc 0 good prognosis - Remicade infusion every 5 weeks [facility]. -continue on methotrexate 6 tablets once weekly. Labs ordered today for monitoring and continued biologic therapy as below Standing lab order provided for labs every 5 weeks with her infusions also Reviewed records from her former laboratory machinist for review including bone density, hand x-rays [...] 07/08/17 and 07/27/19 and February 2022 in [place] (every other year) Continue calcium vitamin D [...] Encounters Date Type Department Care Team Description 06/15/2025 Results Follow-Up [facility] [address] [phone] Jewel Gibbs MD 06/14/2025 2:15 PM EST Office Visit [facility] [address] [place] [phone] Jewel Gibbs MD Rheumatoid arthritis involving multiple sites with positive rheumatoid factor (Primary Dx); High risk medication use; Immunosuppression due to drug therapy; Osteopenia of multiple sites; History of cervical spinal surgery; NSAID long-term use; Medication monitoring encounter 06/14/2025 Travel 05/23/[address] [facility] [address] [place] [phone] Mar Mckeon, INSTRUCTIONAL LEADER Appointment 05/15/[address] [facility] [address] [place] [phone] Jewel Gibbs MD 04/19/2025 11:45 AM EDT Office Visit [facility] [address] [place] [address] Dinesh Miguel MD Lung nodule (Primary Dx); Pulmonary histoplasmosis; Personal history of smoking 04/19/2025 Travel 04/12/2025 Results Follow-Up [facility] [address] [place] [address] Dinesh Miguel MD 04/05/2025 11:17 AM EDT - 04/05/2025 11:59 PM EDT Hospital Encounter [facility] AT [address] [address] Dinesh Miguel MD Pulmonary histoplasmosis; Lung nodule Discharge Disposition: Home or Self Care 04/05/2025 Travel 04/04/2025 Telephone [facility] [address] [place] [address] Navigator, Lung 03/22/2025 Results Follow-Up [facility] [address] [address] Jewel Gibbs MD from Last 3 Months Immunizations Immunization Administration Dates Next Due ABRYSVO (RSV, 60+ or pregnan t women 32-36 wks) 05/12/2024 Fluad Quad 65+ 03/20/2022,03/28/2021,03/22/2020 Fluzone High-Dose 65+YRS 04/04/2024 Influenza, Unspecified 04/05/2025 Shingrix 07/10/2022,03/26/2022 Tdap 12/13/2021 Family History Medical [...] e alcohol) 1 glass of wine daily [employer] Utilities Answer Date Recorded In the past 12 months has [employer], oil, or water [employer] threatened to shut off services in your [...] and heating? Not hard at all 01/20/2024 [facility] [place] [facility] Occupat ional [facility] - Occupational Stress Questionnaire Answer Date Recorded [...] GED or equivalent No 01/20/2024 Preferred Language Cambodian 01/20/2024 PHQ-2 Answer Date Recorded Retired PHQ-9: [...] F) 06/14/2025 1:57 PM EST Respiratory Rate 18 02/04/2024 8:34 AM EDT Oxygen Saturation 97% 04/19/2025 11: 28 AM EDT Inhaled Oxygen Concentration - - Weight 63.4 kg (139 lb 11.2 oz) 06/14/2025 1:57 PM EST Height 172.7 cm (5' 8 ) 06/14/2025 1:57 PM EST Body Mass Index 21.24 06/14/2025 1:57 PM EST Plan of Treatment Upcoming Encounters Date Type Department Care Team (Late st Contact Info) Description 09/18/2025 10:00 AM EDT Office Visit [facility] [address] [facility] [address] [place] [phone] Gwen Thomas APRN [address] [facility] [address] [place] [address] 10/18/2025 11:15 AM EDT Appointment [facility] AT [address] [address] 01/10/2026 2:15 PM EDT Office Visit [facility] [address] [facility] [address] [place] [address] Jewel Gibbs MD 330 [facility] [address] [place] [address] Health Maintenance Due Date Last Done Comments DXA SCAN 1945 Pneumococcal Vaccine 50+ (1 of 2 - PCV) 1964 ANNUAL WELLNESS VISIT 12/08/2023 COVID-19 Vaccine (6 - 2024-2 6 season) 2025 04/10/2025, 04/04/2024, 05/04/2022, Additional history exists TDAP/TD VACCINES (2 - Td or Tdap) 12/14/2031 022 ZOSTER VACCINE Completed 07/10/2022, 03/26/2022 HEPATITIS C SCREENING Completed 01/18/2024 RSV Vaccine - Adults Completed 05/12/2024 INFLUENZA VACCINE Completed 04/10/2025, , 04/04/2024, Additional history exists Procedures Procedure Name Priority Date/Time Associated Diagnosis Comments CBC AND DIFFERENTIAL Routine 06/14/2025 3:22 PM EST CYCLIC CITRUL PEPTIDE ANTIBODY, IGG/IGA Routine 06/14/2025 3:22 PM EST Rheumatoid arthritis involving multiple sites with positive rheumatoid factor High risk medication use RHEUMATOID FACTOR, QUANT Routine 06/14/2025 3:22 PM EST Rheumatoid arthritis involving multiple sites with positive rheumatoid factor High risk medication use SEDIMENTATION RATE Routine 06/14/2025 3: 22 PM EST Rheumatoid arthritis involving multiple sites with positive rheumatoid factor High risk medication use C-REACTIVE PROTEIN Routine 06/14/2025 3: 22 PM EST Rheumatoid arthritis involving multiple sites with positive rheumatoid factor High risk medication use COMPREHENSIVE METABOLIC PANEL Routine 06/14/2025 3:22 PM EST Rheumatoid arthritis involving multiple sites with positive rheumatoid factor High risk medication use CT CHEST WO CONTRAST DIAGNOSTIC Routine 04/05/2025 12:21 PM EDT Pulmonary histoplasmosis Lung nodule HEPATITIS PANEL, ACUTE STAT 12:54 PM EDT from Last 3 Months or Most Recently Relevant to Health Maintenance Results * (ABNORMAL) Rheumatoid Factor (06/14/2025 3:22 PM EST) RA Latex Turbid 43.2(H) <14.0 IU/mL [facility] Blood 06/14/2025 3:22 PM EST 06/14/2025 Narrative [facility] (AMBULATORY) - 06/15/2025 3:07 PM EST Performed at: [facility] [id number] Executive Chairman Of The Board: Feng Caldwell PhD, Phone: [phone] Patient Fasting: N us Jewel Gibbs MD LAB BLOOD ORDERABLES Final Result [facility] (AMBULATORY) [address] [place] [address], [place] [phone] [facility] [address] [place] [address], [place] [phone] * (ABNORMAL) Cyclic Citrul Peptide Antibody, IgG / IgA (06/14/2025 3:22 PM EST) Pathologist [facility] CCP Antibodies IgG/IgA >250(H) 0 - 19 units [facility] Comment: Negative <20 Weak positive 20 - 39 Moderate positive 40 - 59 Strong positive >59 Blood 06/14/2025 3:22 PM EST 06/14/2025 Narrative [facility] (AMBULATORY) - 06/15/2025 3:07 PM EST Performed at: [facility] [id number] Executive Chairman Of The Board: Feng Caldwell PhD, Phone: [phone] Patient Fasting: N us Jewel Gibbs MD LAB BLOOD ORDERABLES Final Result Performing Organization Address City/[facility]/ZIP Co de Phone Number [facility] (AMBULATORY) [address] [place] [address], [facility] [address] [place] [address], * Sedimentation Rate (06/14/2025 3:22 PM EST) [facility] Sed Rate 8 0 - 40 mm/hr [facility] Blood 06/14/2025 3:22 PM EST 06/14/2025 Narrative [facility] (AMBULATORY) - 06/15/2025 3:07 PM EST Performed at: - [address] [id number] Executive Chairman Of The Board: Feng Caldwell PhD, Phone: [phone] Patient Fasting: N Jewel Gibbs MD LAB BLOOD ORDERABLES Final Result Performing Organization Address [facility] Co de Phone Number [facility] (AMBULATORY) [address] [place] [address], [facility] [address] [place] [address], * (ABNORMAL) CBC & Differential (06/14/2025 3:22 PM EST) [facility] WBC 9.3 3.4 - 10.8 x10E3/uL [facility] [...] - 06/15/2025 3:07 PM EST Performed at: Lab[address] [id number] Executive Chairman Of The Board: Feng Caldwell PhD, Phone: [phone] Patient Fasting: N Jewel Gibbs MD LAB BLOOD ORDERABLES Final Result [facility] (AMBULATORY) [address] [place] [address], [facility] [address] [place] [address], * C-reactive Protein (06/14/2025 3:22 PM EST) C-Reactive Protein <1 0 - 10 mg/L [facility] Blood 06/14/2025 3:22 PM EST 06/14/2025 Narrative [facility] ([facility]UL[facility]) - 06/15/2025 3:07 PM EST Performed at: [address] [id number] Executive Chairman Of The Board: Feng Caldwell PhD, Phone: [phone] Patient Fasting: N us Jewel Gibbs MD LAB BLOOD ORDERABLES Final Result [facility] ([facility]UL[facility]) [address] [place] [address], [facility] [address] [place] [address], * (ABNORMAL) Comprehensive Metabolic Panel (06/14/2025 3:22 PM EST) Pathologist [facility] Glucose 113(H) 70 - 99 mg/dL [facility] [...] 3:07 PM EST Performed at: [facility] [address] [facility], [place], [place] [id number] Executive Chairman Of The Board: Feng Caldwell PhD, Phone: [phone] Patient Fasting: N us Jewel Gibbs MD LAB BLOOD ORDERABLES Final Result [facility] ([facility]BULATORY) [address] [place] [address], [facility] [address] [place] [address], * CT Chest Without Contrast Diagnostic (04/05/2025 12:21 PM EDT) Anatomical Region Laterality Modality Chest N/A Computed Tomogra phy 04/10/2025 4:43 PM EDT Impressions 04/10/2025 5:40 PM EDT Impression: 1. No significant change in size of the largest right middle lobe nodule measuring 10 mm in size. Similar-appearing medial right middle lobe nodule measuring 8 mm, also unchanged when remeasured using similar measurement technique. 2. Peripheral bronchial wall thickening within the right middle lobe and lingula likely representing bronchitis or peripheral small airway disease. Electronically Signed: Oliver Gutierrez MD 04/10/2025 5:40 PM EDT Workstation ID: [id number] Narrative 04/10/2025 5:[address] CHEST WO CONTRAST DIAGNOSTIC Date of Exam: 04/05/2025 12:14 PM EDT Indication: Pulmonary histoplasmosis s/p treatment and lung nodule follow up. Comparison: Chest CT dated 09/19/2024 Technique: Axial CT images were obtained of the chest without contrast administration. Reconstructed coronal and sagittal images were also obtained. Automated exposure control and iterative construction methods were used. Findings: The visualized soft tissue structures at the base of the neck including portions of the thyroid appear within normal limits. There is no lower cervical or axillary adenopathy. The heart size is normal. There is trace pericardial fluid within the superior pericardial recesses. The aorta is normal in caliber without evidence of aneurysm formation. There is coronary artery atherosclerotic calcification. The main pulmonary artery appears normal in caliber. There is a stable precarinal lymph node measuring 9 mm in short axis. There is increasing density/calcification within a subcarinal lymph node measuring 14 mm on today's examination, previously measured 15 mm in short axis. There is no new or enlarging mediastinal or hilar lymph node. The central airways appear patent. There is a stable 10 mm nodule within the right middle lobe best seen on image 59 of series 4. There is a stable medial right middle lobe nodule measuring approximately 8 mm in size, similar to the prior exam when remeasured using similar measurement technique best seen on image 58. There is peripheral mucous plugging within the medial aspect of the right lower lobe adjacent to the IVC. There is peripheral bronchial wall thickening within the right middle lobe and lingula. There is upper lobe predominant interstitial opacities, similar to the prior examination. There is upper lobe predominant centrilobular emphysema. The esophagus is normal in course and caliber. Visualized portions of the upper abdomen demonstrate no acute findings. 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 Anterior cervical fusion hardware is present. Procedure Note Oliver Gutierrez MD - 04/10/2025 CT CHEST WO CONTRAST DIAGNOSTIC Date of Exam: 04/05/2025 12:14 PM EDT Indication: Pulmonary histoplasmosis s/p treatment and lung nodule followup. Comparison: Chest CT dated 09/19/2024 Technique: Axial CT images were obtained of the chest without contrastadministration. Reconstructed coronal and sagittal images were alsoobtained. Automated exposure control and iterative construction methodswere used. Findings: The visualized soft tissue structures at the base of the neck includingportions of the thyroid appear within normal limits. There is no lowercervical or axillary adenopathy. The heart size is normal. There is trace pericardial fluid within thesuperior pericardial recesses. The aorta is normal in caliber withoutevidence of aneurysm formation. There is coronary artery atheroscleroticcalcification. The main pulmonary artery appears normal in caliber. There is a stable precarinal lymph nodemeasuring 9 mm in short axis. There is increasing density/calcificationwithin a subcarinal lymph node measuring 14 mm on today's examination,previously measured 15 mm in short axis. There is no new or enlarging mediastinal or hilar lymph node. The central airways appear patent. There is a stable 10 mm nodule withinthe right middle lobe best seen on image 59 of series 4. There is a stablemedial right middle lobe nodule measuring approximately 8 mm in size,similar to the prior exam when remeasured using similar measurement technique best seen on image 58.There is peripheral mucous plugging within the medial aspect of the rightlower lobe adjacent to the IVC. There is peripheral bronchial wallthickening within the right middle lobe and lingula. There is upper lobe predominant interstitial opacities, similarto the prior examination. There is upper lobe predominant centrilobularemphysema. The esophagus is normal in course and caliber. Visualized portions of theupper abdomen demonstrate no acute findings. There is degenerative discdisease of the thoracic spine. Anterior cervical fusion hardware ispresent. IMPRESSION: Impression: 1. No significant change in size of the largest right middle lobe nodulemeasuring 10 mm in size. Similar-appearing medial right middle lobe nodulemeasuring 8 mm, also unchanged when remeasured using similar measurementtechnique. 2. Peripheral bronchial wall thickening within the right middle lobe andlingula likely representing bronchitis or peripheral small airwaydisease. Electronically Signed: Oliver Gutierrez MD 04/10/2025 5:40 PM EDT Workstation ID: [id number] Dinesh Miguel MD IMG CT ORDERABLES Final Resul t * Hepatitis Panel, Acute (01/18/2024 12:54 PM EDT) Hepatitis B Surface Ag Non-Reacti ve Non-Reacti ve 01/18/2024 1:43 PM EDT [facility] Hep A IgM Non-Reacti ve Non-Reacti ve 01/18/2024 1:43 PM EDT [facility] Hep B C IgM Non-Reacti ve Non-Reacti ve 01/18/2024 1:43 PM EDT [facility] Hepatitis C Ab Non-Reacti ve Non-Reacti ve 01/18/2024 1:43 PM EDT [facility] Blood Venipuncture / Unknown 01/18/2024 12:54 PM EDT 01/18/2024 1:07 PM EDT Narrative [facility] - 01/18/2024 1:43 PM EDT Results may be falsely decreased if patient taking Biotin. Irena Roberto MD LAB BLOOD ORDERABLES Meeta l Result [facility]
[address] [place] [address], from Last 3 Months or Most Recently Relevant to Health Maintenance Additional Health Concerns Infection Onset Date Last Indicated Tuberculosis (rule out) 01/27/2024 01/27/20 Insurance [facility] [place] B Advance Directives Documents on File Type Date Recorded Patient Regulatory Process Manager Expl anation POWER OF LICENSING SERVICES CLERK - SCAN 01/28/2024 12:05 PM JENS CAAL, 01/26/20 24 * CPR (Attempt to Resuscitate) (Latest Code Status on File) Date Activated Date Inactivated Comments 01/18/2024 5:41 PM 02/04/2024 3:18 PM Question Answer Comments Code Status (Patient has no pulse and is not breathing): CPR (Attempt to Resuscitate) Medical Interventions (Patie nt has pulse or is breathing): Full Support Level Of Support Discussed With: Patient Care Teams Chemical Dependency Attendant Relationship Specialty Start Date End Date Miles Beavers MD [address] [facility] [address] [place] [id number] PCP - General Family Medicine 12/10/23
--- OUTSIDE RECORDS SUMMARY | 2025-06-21 14:53 | XMS_ITS | Patient Health Record ---
Author Organization [facility] Address [address] [place] [phone] Care Team Providers Care Mine Superintendent Name Role Phone Miriam MARIE, [facility] Primary Care Provider Dr Delbert Wilson Unavailable [phone] ALLERGIES No Known Allergies REASON FOR REFERRAL [...] Orthostatic hypotension (I95.1) Active confirmed Orthostatic hypotension (53008938) doing well, I see no ongoing role in her care for a neurologist as PCP and cardio have the situation well in hand PLAN OF TREATMENT No Information Insurance Providers Payer Name Payer Address Payer Phone Subscriber Number Group Number Insured Name Patient Relationship to Insured Coverage Start Date Coverage End Date Medicare Part B [address] [address] [place] [address] [id number] Mimi Hobbs Self - patient is the insured 1 [facility] [place] [id number] Mimi Hobbs Self - patient is the insured 1 MEDICAL (GENERAL) HISTORY Medical History History ICD Code Rheumatoid arthritis Colon cancer Melanoma Hyperlipidemia Surgical History Surgery Date(Month/Year) Tonsillectomy/adenoidectomy C section x 3 Lung biopsy Cataract surgery Retina surgery C Spine surgery x 2
--- OUTSIDE RECORDS SUMMARY | 2025-06-21 14:53 | XMS_ITS | Patient Health Record ---
Author Organization [facility] Address [address] [place] [address] Care Team Providers Care Manufacturing Plant Controller Name Role Phone Charly Pineda Primary Care Provider Junior Ko Unavailable [phone] Allergies No Known Allergies Reason For Referral [...] Vaccine Route Administration Date Status Comme nts Covid Unknown 08/17/2020 Administered Covid Unknown 11/12/2021 Administered covid Unknown 05/04/2022 Administered Seasonal influenza QUAD Unknown 03/22/2020 Administered Seasonal influenza QUAD Unknown 03/28/2021 Administered Seasonal influenza QUAD Unknown 03/20/2022 Administered Shingrix Unknown 03/26/2022 Administered Shingrix Unknown 07/10/2022 Administered TDAP Unknown 12/13/2021 Administered Social History Tobacco Use: Social History [...] (stress test 12/2019 was neg). PFT's stable [id number] Problem Information temporarily unavailable Other nonspecific abnormal [...] X-ray PA and lateral 10/29/2021 PFT COMPLETE 01/03/2020 PFT COMPLETE 10/29/2021 CT ANGIO CHEST PULMONARY ART ERIES WITH OR WITHOUT AND WITH CONTRAST POST PROCESSING 11/13/2016 Insurance Providers Payer Name Payer Address Payer Phone Subscriber Number Group Number Insured Name Patient Relationship to Insured Coverage Start Date Coverage End Date MEDICARE [address] [place] [phone] [id number] Mimi Hobbs Self - [place] [address] [phone] [id number] Mimi Hobbs Self - patient is the insured Medical (General) History Medical History History ICD Code Rheumatoid arthritis Reflux Pulmonary nodules COPD Bilateral low bck pain Melanoma Surgical History Surgery Date(Month/Year) Tonsillectomy x 3 Lung bx cervical 5-8 eyelid uplift 2021 Hospitalization History Reason Date(Month/Year) [facility] x 1 days Upper cervical spi ne surgery 07/2021
--- OUTSIDE RECORDS SUMMARY | 2025-06-21 14:53 | XMS_ITS | Clinical Summary ---
Author Organization [facility] Address [address] [place] [address] Phone Care Team Providers Care Clinical Immunologist Name Role Phone Status, Fax Unavailable Conditions or Problems Problem Name Problem Code Onset Date Status Entry Date Provider Comment Standard Description Annotate Acute pulmonary blastomycosi s 670158210 (SNOMED CT) 03/03 Resolved 03/03 Glenny Stratton MD Acute pulmonary blastomycosis Weight loss 315323324 (SNOMED CT) 10/03 Active 10/03 Glenny Stratton MD Abnormal weight loss Alopecia 97741154 (SNOMED CT) 07/25 Active 07/27 Glenny Stratton MD Alopecia Mycobacteriu m avium complex 322685406 (SNOMED CT) 07/25 Active 07/27 Glenny Stratton MD 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 At risk for falls 413221350 (SNOMED CT) 07/25 Active 07/25 Nenita Langford At increased risk for falls Lymphedema bilat legs I89.0 (ICD-10-CM ) 03/16 Active 03/16 Glenny Stratton MD Lymphedema, not elsewhere classified Acute respiratory failure with hypoxia 44147044 (SNOMED CT) 03/03 Active 03/03 Nova Daren Acute respiratory failure Acute pulmonary blastomycosi s 128610075 (SNOMED CT) 03/03 Removed 03/03 Nova Daren 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-CM ) 03/03 Active 03/03 Nova Mercedes Acute pulmonary histoplasmosis capsulati Hypotension, chronic 79740629 (SNOMED CT) 03/03 Active 03/03 Nova Mercedes Chronic hypotension Alkaline phosphatase, elevated 010296413 (SNOMED CT) 03/03 Active 03/03 Nova Mercedes Alkaline phosphatase above reference range Elevation of levels of liver transaminase levels 820377030 (SNOMED CT) 03/03 Active 03/03 Nova Mercedes Elevated level of transaminase and lactic acid dehydrogenase Hyponatremia 21673510 (SNOMED CT) 03/03 Active 03/03 Nova Mercedes Hyponatremia COPD 24890186 (OMED CT) 03/03 Active 03/03 Nova Mercedes Chronic obstructive pulmonary disease RA with rheumatoid factor, 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 (ICD-10-CM ) 03/03 Active 03/03 Nova Mercedes Rheumatoid arthritis with rheumatoid factor of multiple sites without organ or systems involvement Medications Medication Instructions Start Date Stop Date Generic Name ND Provider MELOXICAM 7.5 MG TABS meloxicam 18347911583 Ibis Junior FLORASTOR 250 MG CAPS saccharomyces boulardii 51503068919 Ibis Junior PRESERVISION AREDS CAPS vitamins a,c,l-pyvt-nyipfl 06992120399 Ibis Junior ZYRTEC ALLERGY 10 MG TABS cetirizine 97241822714 Ibis Junior AZELASTINE HCL 0.1 % SOLN azelastine 03080989485 Ibis Junior FLUTICASONE PROPIONATE 50 MCG/ACT SUSP fluticasone propionate 79972045190 Ibis Junior BRIMONIDINE TARTRATE 0.2 % SOLN brimonidine 65123745836 Ibis Junior KETOROLAC TROMETHAMINE 0.5 % SOLN ketorolac 40069688369 Ibis Junior DORZOLAMIDE HCL 2 % SOLN dorzolamide 97230687176 Ibis Junior VORICONAZOLE 200 MG TABS 1 tablet by mouth twice a day TAKE 1 TABLET BY MOUTH 2 TIMES A DAY 01/02 voriconazole 59280955078 Glenny Stratton MD VORICONAZOLE 200 MG TABS Take 1 tablet by mouth twice a day 01/16 voriconazole 56889138088 Glenny Stratton MD VORICONAZOLE 200 MG TABS 1 tablet by mouth twice a day TAKE 1 TABLET BY MOUTH 2 TIMES A DAY 01/02 voriconazole 72390341503 Glenny Stratton MD FLUDROCORTISONE ACETATE 0.1 MG TABS 0.1 mg = 1 tab, Tab, Oral, Daily, 30 tab, 0 Refill(s), Route to Pharmacy Electronically , [facility], 170, 02/12/24 3:54:00 EDT, Height/Length Dosing, cm, 67.7, 02/12/24 3:54:00 EDT, Weight Dosing, kg 01/02 fludrocortisone 74508235408 Lidia Wilson VORICONAZOLE 200 MG TABS 1 tablet by mouth twice a day TAKE 1 TABLET BY MOUTH 2 TIMES A DAY 01/01 voriconazole 78600907111 Glenny Stratton MD MIDODRINE HCL 5 MG TABS 15 mg = 3 tab, Tab, Oral, TIDAC, 270 tab, 0 Refill(s), Route to Pharmacy Electronically , [facility], 170, 02/12/24 3:54:00 EDT, Height/Length Dosing, cm, 67.7, 02/12/24 3:54:00 EDT, Weight Dosing, kg 10/03 midodrine 82586486434 Guerline Armando VORICONAZOLE 200 MG TABS 1 tablet by mouth twice a day TAKE 1 TABLET BY MOUTH 2 TIMES A DAY 10/13 voriconazole 37503676369 Glenny Stratton MD ROSUVASTATIN CALCIUM 5 MG TABS Take 1 tablet by mouth once a day rosuvastatin 67372419218 Farrah Awan VORICONAZOLE 200 MG TABS 1 tablet by mouth twice a day TAKE 1 TABLET BY MOUTH 2 TIMES A DAY 09/15 voriconazole 44357761650 Glenny Stratton MD VORICONAZOLE 200 MG TABS 1 tablet by mouth twice a day TAKE 1 TABLET BY MOUTH 2 TIMES A DAY 07/24 voriconazole 46358251897 Glenny Stratton MD FLORAJEN3 (PROBIOTIC PRODUCT) CAPS 1 cap, Cap, Oral, QLUNCH, 30 cap, 0 Refill(s), Route to Pharmacy Electronically , [facility], 170, 02/12/24 3:54:00 EDT, Height/Length Dosing, cm, 67.7, 02/12/24 3:54:00 EDT, Weight Dosing, kg 07/25 PROBIOTIC PRODUCT Nenita Belmindy MELATONIN 3 MG TABS 3 mg = 1 tab, Tab, Oral, QHS, 60 tab, 0 Refill(s), Route to Pharmacy Electronically , [facility], 170, 02/12/24 3:54:00 EDT, Height/Length Dosing, cm, 67.7, 02/12/24 3:54:00 EDT, Weight Dosing, kg 07/25 melatonin 31694897724 Nenita Belmindy BUMETANIDE 0.5 MG TABS 0.5 mg = 1 tab, Oral, Daily, 30 tab, 0 Refill(s), Route to Pharmacy Electronically , [facility], 170, 02/12/24 3:54:00 EDT, Height/Length Dosing, cm, 67.7, 02/12/24 3:54:00 EDT, Weight Dosing, kg 07/25 bumetanide 48097886747 Nenita Marshamindy potassium chloride 10 mEq oral tablet, extended release 30 mEq = 3 tab, Tab-ER, Oral, Daily, 90 tab, 0 Refill(s), Route to Pharmacy Electronically , [facility], 170, 02/12/24 3:54:00 EDT, Height/Length Dosing, cm, 67.7, 02/12/24 3:54:00 EDT, Weight Dosing, kg 07/25 potassium chloride 10 mEq oral tablet, extended release Nenita Belin PEG 3350 17 GM/SCOOP POWD = 1 packet, Powder-Recon, Oral, Daily PRN, 30 packet, 0 Refill(s), Constipation, Route to Pharmacy Electronically , [facility], 170, 02/12/24 3:54:00 EDT, Height/Length Dosing, cm, 67.7, 02/12/24 3:54:00 EDT, Weight Dosing, kg 07/25 polyethylene glycol 3350 93105265961 Nenita Belin acetaminophen 500 mg oral tablet 1 tablet by mouth every four hours as needed 07/25 acetaminophen 500 mg oral tablet Nenita Belin VORICONAZOLE 200 MG TABS 1 tablet by mouth twice a day TAKE 1 TABLET BY MOUTH 2 TIMES A DAY 07/15 voriconazole 16137364876 Glenny Stratton MD VORICONAZOLE 200 MG TABS 1 tablet by mouth twice a day TAKE 1 TABLET BY MOUTH 2 TIMES A DAY 08/18 voriconazole 64501831178 Glenny Stratton MD VORICONAZOLE 200 MG TABS 1 tablet by mouth twice a day TAKE 1 TABLET BY MOUTH 2 TIMES A DAY 08/17 voriconazole 34515927102 Glenny Stratton MD FLORASTOR ADVANCED CAPS Take 2 capsule by mouth twice a day jeremie-enzym -kew-ulej-yug 85433292551 Glenny Stratton MD VORICONAZOLE 200 MG TABS 200 mg, 1 tab, Tab, Oral, BID, 60 tab, 0 Refill(s), Indication: Blastomycosis, Route to Pharmacy Electronically , [facility], 170, 02/12/24 3:54:00 EDT, Height/Length Dosing, cm, 67.7, 02/12/24 3:54:00 EDT, kg, Weight Dosing 03/16 voriconazole 78551388431 Glenny Stratton MD VORICONAZOLE 200 MG TABS 1 tablet by mouth twice a day TAKE 1 TABLET BY MOUTH 2 TIMES A DAY 08/15 voriconazole 56835046936 Glenny Stratton MD VORICONAZOLE 200 MG TABS 200 mg, 1 tab, Tab, Oral, BID, 60 tab, 0 Refill(s), Indication: Blastomycosis, Route to Pharmacy Electronically , [facility], 170, 02/12/24 3:54:00 EDT, Height/Length Dosing, cm, 67.7, 02/12/24 3:54:00 EDT, kg, Weight Dosing 03/16 voriconazole 69953025620 QIE qieuser potassium chloride 10 mEq oral tablet, extended release 30 mEq = 3 tab, Tab-ER, Oral, Daily, 90 tab, 0 Refill(s), Route to Pharmacy Electronically , [facility], 170, 02/12/24 3:54:00 EDT, Height/Length Dosing, cm, 67.7, 02/12/24 3:54:00 EDT, Weight Dosing, kg 07/25 potassium chloride 10 mEq oral tablet, extended release QIE qieuser PEG 3350 17 GM/SCOOP POWD = 1 packet, Powder-Recon, Oral, Daily PRN, 30 packet, 0 Refill(s), Constipation, Route to Pharmacy Electronically , [facility], 170, 02/12/24 3:54:00 EDT, Height/Length Dosing, cm, 67.7, 02/12/24 3:54:00 EDT, Weight Dosing, kg 07/25 polyethylene glycol 3350 37212498410 QIE qieuser PANTOPRAZOLE SODIUM 40 MG TBEC 40 mg = 1 tab, Tab-DR, Oral, QLUNCH, 30 tab, 0 Refill(s), Route to Pharmacy Electronically , [facility], 170, 02/12/24 3:54:00 EDT, Height/Length Dosing, cm, 67.7, 02/12/24 3:54:00 EDT, Weight Dosing, kg pantoprazole 99009365064 QIE qieuser MIDODRINE HCL 5 MG TABS 15 mg = 3 tab, Tab, Oral, TIDAC, 270 tab, 0 Refill(s), Route to Pharmacy Electronically , [facility], 170, 02/12/24 3:54:00 EDT, Height/Length Dosing, cm, 67.7, 02/12/24 3:54:00 EDT, Weight Dosing, kg 50 10/03 midodrine 55578033808 QIE qieuser MELATONIN 3 MG TABS 3 mg = 1 tab, Tab, Oral, QHS, 60 tab, 0 Refill(s), Route to Pharmacy Electronically , [facility], 170, 02/12/24 3:54:00 EDT, Height/Length Dosing, cm, 67.7, 02/12/24 3:54:00 EDT, Weight Dosing, kg 07/25 melatonin 98158277944 QIE qieuser MAGNESIUM OXIDE 400 MG TABS 400 mg = 1 tab, Tab, Oral, BID, 60 tab, 0 Refill(s), Route to Pharmacy Electronically , [facility], 170, 02/12/24 3:54:00 EDT, Height/Length Dosing, cm, 67.7, 02/12/24 3:54:00 EDT, Weight Dosing, kg magnesium oxide 96758202325 QIE qieuser GABAPENTIN 300 MG CAPS 300 mg, = 1 cap, Indication: Neuropathic Pain - Spinal Cap, Oral, QHS, 30 cap, 0 Refill(s), Route to Pharmacy Electronically , [facility], 170, 02/12/24 3:54:00 EDT, Height/Length Dosing, cm, 67.7, 02/12/24 3:54:00 EDT, Weight Dosing, kg gabapentin 59561010025 QIE qieuser FLUDROCORTISONE ACETATE 0.1 MG TABS 0.1 mg = 1 tab, Tab, Oral, Daily, 30 tab, 0 Refill(s), Route to Pharmacy Electronically , [facility], 170, 02/12/24 3:54:00 EDT, Height/Length Dosing, cm, 67.7, 02/12/24 3:54:00 EDT, Weight Dosing, kg 2024/0 6/30 fludrocortisone 46853006057 QIE qieuser FLORAJEN3 (PROBIOTIC PRODUCT) CAPS 1 cap, Cap, Oral, QLUNCH, 30 cap, 0 Refill(s), Route to Pharmacy Electronically , [facility], 170, 02/12/24 3:54:00 EDT, Height/Length Dosing, cm, 67.7, 02/12/24 3:54:00 EDT, Weight Dosing, kg 07/25 PROBIOTIC PRODUCT QIE qieuser BUMETANIDE 0.5 MG TABS 0.5 mg = 1 tab, Oral, Daily, 30 tab, 0 Refill(s), Route to Pharmacy Electronically , [facility], 170, 02/12/24 3:54:00 EDT, Height/Length Dosing, cm, 67.7, 02/12/24 3:54:00 EDT, Weight Dosing, kg 0 7/ bumetanide 89010762382 QIE qieuser acetaminophen 500 mg oral tablet [...] 65-99 Glucose [Mass/volume] in Serum or Plasma Lab Report: VORICONAZOLE, SE RUM/PLASMA ZZ-GE-unk 3.3 ug/mL GE use only - for LinkLogic import when terms are not otherwise specified Office Visit: Office Visit: 11 FALLRSKASSES yes Fall ris k assessment ORALTOBACUSE Never Tobacco smoking status SMOK STATUS Former smoker Tobacco smoking status MEDS REVIEW Done Documenta tion of current medications (procedure) Plan of Care Type Date Detail Referral CT Chest without contrast Pending order Voriconazole Lev el Pending order CBC with Differe ntial Pending order CMP Pending order Other Pending order CBC with Differe ntial Pending order CMP Pending order C- reactive prot ein Pending order Fungitell, serum (1-3) D-Glucan Assay Pending order Histoplasmosis U rinary AG Pending order Blastomyces Urin haily Antigen Procedures Code Procedure Name Date Entry Date CPT-94144 Voriconazole Level 1 [id number] CBC with Differential 2023 CPT-80084 CMP CPT-LAB Other [id number] CBC with Differential 2023 CPT-98916 CMP CPT-69451 C- reactive protein 77924 Fungitell, serum (1-3) D-Glucan Assay 10/12/10 CPT-15432 Histoplasmosis Urinary AG 29/03/11 CPT-68063 Blastomyces Urinary Antigen CPT-11612 CT Chest without contrast 29/03/11 Vital Signs [...]
--- OUTSIDE RECORDS SUMMARY | 2025-06-21 14:53 | XMS_ITS | Patient Health Record ---
Author Organization [facility] Address [address] [place] [address] Care Team Providers Care Flatbed Company Driver Name Role Phone Charly Pineda Primary Care Provider Keegan Stoddard Unavailable [phone] Reason For Referral No Information Medications Medication SIG (Take, Route, Frequency, Duration) Notes Start Date End Date Status Folic Acid 1 MG Tablet 2 tablet Orally O nce a day Active Methotrexate (Anti-Rheumatic) 2.5 MG Tablet 4 tablets Orally ONCE A WEEK Active Remicade 100 MG Solution Reconstituted as directed Intravenous Act del[place] Allergy Medication 25 MG Capsule 1 capsule as needed Orally every 6 hrs Active Immunizations Vaccine Route Administration Date Status Comme nts Pneumonia Vaccine Unknown 11/25/2012 Administered Social History Social History Additional Details Category Social Info Options Details Miscellaneous: Marital status: Problems Problem Type SNOMED Code ICD Code Onset Dates Problem Status W/U Status Risk Notes Problem Right upper quadrant pain (544222988) Abdominal pain, right upper quadrant (789.01) Active confirmed Problem Pre-surgery evaluation (346546643) Medicare screening colon (V72.83) Active confirmed the patient appears to be medically stable to undergo colonoscopy without contraindication at this time. Appropriate medications will be discontinued to minimize undue complications. Problem History of malignant neoplasm of colon (246763418) Personal history of colon cancer (V10.05) Active [...] Problem History of polyp of colon (situation) (249523160) Personal history of colonic polyps (Z86.010) Active [...] after the wedding Problem Gastroesophageal reflux disease (278028335) Gastro-esoph ageal reflux disease without esophagitis (K21.9) [...] 2008 Part B Claims and [place] EMIGDIO Girard [id number] NATALIE GIVENS Self - patient is the insured 2 [facility] [address] [place] [address] [id number] NATALIE GIVENS Self - patient is the insured 3 Medical (General) History Medical History History ICD Code rheumatoid arthritis Colonoscopy- 2010 colon cancer-situ Surgical History Surgery Date(Month/Year) section tonsillectomy
--- OUTSIDE RECORDS SUMMARY | 2025-06-21 14:53 | XMS_ITS | Encounter Summary ---
Author Organization [facility] Address [address] [place] [address] Care Team Providers Care Credit Card Associate Name Role Phone Miles Beavers MD Primary Care Provider + [phone] Encounter Details Date Type Department Care Team (Late st Contact Info) Description 09/28/2024 Results Follow-Up [facility] [address] [place] [address] Dinesh Miguel MD [facility] [place] [address] Social History Tobacco Use Types Packs/Day Years Used Date Smoking Tobacco: Former Cigarettes 1 58.5 0 07/06/1965 - 12/18/2001 Smokeless Tobacco: Never Alcohol Use Standard Drinks/Week Comments Yes 7 (1 standard drink = 0.6 oz pur e alcohol) 1 glass of wine daily [facility] Utilities Answer Date Recorded In the past 12 months has [employer], [employer], oil, or water [employer] threatened to shut off services in your [...] and heating? Not hard at all 01/20/2024 [facility] Occupat ional Health - Occupational Stress [...] GED or equivalent No 01/20/2024 Preferred Language Burmese 01/20/2024 PHQ-2 Answer Date Recorded Retired PHQ-9: [...] Description 09/18/2025 10:00 AM EDT Office Visit [facility] [address] [place] [phone] Gwen Thomas APRN [address] [address] 10/18/2025 11:15 AM EDT Appointment [facility] AT [address] [address] 01/10/2026 2:15 PM EDT Office Visit [facility] [address] [place] [phone] Jewel Gibbs MD [address] [address] documented as of this encounter Visit Diagnoses Not on filedocumented in this encounter Additional Health Concerns Infection Onset Date Last Indicated Resolved Time Tuberculosis (rule out) 01/27/2024 01/27/2024 documented as of this encounter Care Teams Credit Card Associate Relationship Specialty Start Date End Date Miles Beavers MD [address] [facility] [address] [facility] [address] [place] [address] PCP - General Family Medicine 12/10/23 documented as of this encounter
--- OUTSIDE RECORDS SUMMARY | 2025-06-21 14:53 | XMS_ITS | Patient Health Record ---
Author Organization [facility] Address [address] [place] [phone] Care Team Providers Care General Office Worker Name Role Phone Miriam MARIE, [facility] Primary Care Provider Oleg Johnson MD, [facility] Unavailable [phone] Allergies No Known Allergies Reason For Referral [...] Status Risk Notes Problem Mitral valve disorder (49064616) Nonrheumatic mitral (valve) insufficiency (I34.0) Active confirmed Problem Dizziness and giddiness (172005585) Dizziness and giddiness (R42) Active confirmed Problem Shortness of breath (709695995) Shortness of breath (R06.02) Active confirmed Problem Tricuspid valve disorder, non-rheumatic (613247569) Nonrheumatic tricuspid (valve) insufficiency (I36.1) Active confirmed Problem Aortic valve disorder (0023772) Nonrheumatic aortic (valve) insufficiency (I35.1) Active confirmed Problem Peripheral vascular disease (783780276) Peripheral vascular disease, unspecified (I73.9) Active confirmed Problem Angina pectoris (658772090) Angina pectoris (I20.9) Active confirmed Problem Coronary artery disease (09860454) CAD (coronary artery disease) (I25.10) Active confirmed Problem Preoperative cardiovascular examination (380479247) Encounter for pre-operative cardiovascular clearance (Z01.810) Active confirmed Problem Disorder of carotid artery (disorder) (708847602) Carotid artery disease, unspecified laterality (I77.9) Active confirmed Problem COPD - Chronic obstructive pulmonary disease (87866914) Chronic obstructive pulmonary disease, unspecified COPD type (J44.9) Active confirmed Problem Angina pectoris (254292060) Angina Pectoris (I20.8) Active confirmed Problem Carotid artery disease (830082716) Carotid artery disease (I65.23) Active confirmed Problem Peripheral vascular disease (972028307) Peripheral vascular disease (I70.213) Active confirmed Plan Of Treatment Pending Test Test Name Order Date Echocardiogram 03/21/2019 Echocardiogram 11/10/2016 Echocardiogram 03/12/2021 Echocardiogram 04/22/2023 Echocardiogram 03/09/2018 Carotid Ultrasound 04/28/2016 Carotid Ultrasound 03/31/2016 Carotid Ultrasound 03/24/2022 Ultrasound : Artery Doppler Low Ext Bila t 03/21/2019 Ultrasound : Artery Doppler Low Ext Bila t 11/27/2022 Ultrasound : Artery Doppler Low Ext Bila t 09/22/2022 Ultrasound : Artery Doppler Low Ext Bila t 03/09/2018 Ultrasound : Carotid Doppler Bilateral 1 08/02/2022 Holter 03/03/2023 Holter 11/10/2016 Left Heart Catheterization 03/31/2016 Event Monitor 30 Days 11/27/2022 Excercise Nuclear Stress Test 05/12/2017 Excercise Nuclear Stress Test 09/22/2022 ECHOCARDIOGRAM 03/24/2022 HOLTER MONITOR 24 HOUR 03/03/2023 HOLTER MONITOR 24 HOUR 03/31/2016 HOLTER MONITOR 24 HOUR 09/27/2018 HOLTER MONITOR 03/09/2018 Insurance Providers Payer Name Payer Address Payer Phone Subscriber Number Group Number Insured Name Patient Relationship to Insured Coverage Start Date Coverage End Date [place] [address] [facility] [address] [id number] Mimi Givens Self - patient is the insured 2 [facility] [id number] AleidaMimi barreto Self - patient is the [...]
--- OUTSIDE RECORDS SUMMARY | 2025-06-21 14:54 | XMS_ITS | Encounter Summary ---
[facility] Address [address] [place] [address] Care Team Providers Care Etl [employer]form[employer] Developer Name Role Phone Miles Beavers MD Primary Care Provider + [phone] Encounter Details Date Type Department Care Team (Late st Contact Info) Description 01/11/2025 Results Follow-Up [facility] [address] [phone] Jewel Gibbs MD [address] [phone] Social History Tobacco Use Types Packs/Day Years Used Date Smoking Tobacco: Former Cigarettes 1 58.5 0 07/06/1965 - 12/18/2001 Smokeless Tobacco: Never Alcohol Use Standard Drinks/Week Comments Yes 7 (1 standard drink = 0.6 oz pur e alcohol) 1 glass of wine daily [facility] Utilities Answer Date Recorded In the past 12 months has [employer], gas, oil, or water [employer] threatened to shut off services in your [...] hard at all 01/20/2024 [facility] of Occupat ional Health - Occupational [...] Description 09/18/2025 10:00 AM EDT Office Visit [facility] [address] [place] [phone] Gwen Thomas APRN [address] [place] [address] 10/18/2025 11:15 AM EDT Appointment [facility] AT [address] [phone] 01/10/2026 2:15 PM EDT Office Visit [facility] [address] [place] [phone] Jewel Gibbs MD [address] [place] [phone] documented as of this encounter Visit Diagnoses Not on filedocumented in this encounter Additional Health Concerns Infection Onset Date Last Indicated Resolved Time Tuberculosis (rule out) 01/27/2024 01/27/2024 documented as of this encounter Care Teams Etl Informatic[employer] Developer Relationship Specialty Start Date End Date Miles Beavers MD [address] [facility] [address] [facility] [address] [place] [address] PCP - General Family Medicine 12/10/23 documented as of this encounter
== END 2025-06-21 23:59 | disposition home or self-care (01) ==
LOC: RT 13:33
PROVIDERS: PCP Family Medicine; Visit Provider Internal Medicine
DX: I25.10 Atherosclerotic heart disease of native coronary artery without angina pectoris (principal)
CPT/HCPCS: 93306